=== PATIENT | female | born 1940 | race Caucasian/White ===

== ENCOUNTER 2017-09-07 13:00 | Outpatient (CLI) | payer MEDICARE ==
[2017-09-07] MEDS ORDERED: ALBUTEROL NEB 2.5 MG/3 ML INH ONE (15:00)
--- NOTE | 2017-09-07 15:27 | XRAY Report ---
EXAM: CHEST RADIOGRAPHY EXAM DATE: 09/07/2017 01:14 PM. CLINICAL HISTORY: CHRONIC COUGH. COMPARISON: None. TECHNIQUE: 2 views. FINDINGS: Lungs/Pleura: No focal opacities evident. No pleural effusion. No pneumothorax. Hyperexpanded lungs w ith flattened diaphragm, could be due to COPD versus age related. Mediastinum: Heart and mediastinal contours are unremarkable. Other: Moderate T6, T9 and T11 compression deformities, age indeterminate. IMPRESSION: 1. Hyperexpanded lungs with flattened diaphragm, could be due to COPD versus age related. 2. No acute cardiopulmonary disease seen. 3. Moderate T6, T9 and T11 compression deformities, age indeterminate. [facility] Referring Provider Line: [phone] SITE ID: [id number]
== END 2017-09-07 13:01 | disposition home or self-care (01) ==
LOC: RT 13:00
PROVIDERS: ATTEND Internal Medicine
DX: R06.09 Other forms of dyspnea (principal); R05 Cough
CPT/HCPCS: 71046; 94060

== ENCOUNTER 2021-05-01 10:50 | Outpatient (CLI) | payer MEDICARE ==
--- NOTE | 2021-05-01 11:06 | XRAY Report ---
PROCEDURE: Chest 2 View X-Ray INDICATIONS: LEFT SIDED CHEST PAIN TECHNIQUE: 2 view(s) of the chest. COMPARISON: Chest x-ray 09/07/2017 FINDINGS: Surgical changes and devices: None. Lungs and pleura: No pleural effusions or pneumothorax. Lungs are clear. Mild hyperexpansion sugge stive COPD. Mediastinum: Mediastinal contours are normal. Heart size is normal. Bones and chest wall: No suspicious bony abnormalities. Soft tissues appear unremarkable. IMPRESSION: Mild hyperexpansion. No consolidations. Reviewed by: Amy Rios MD on 05/01/2021 11:04 AM PDT Approved by: Amy Rios MD on 05/01/2021 11:04 AM PDT Station ID: [id number]
== END 2021-05-01 10:51 | disposition home or self-care (01) ==
LOC: DI.S 10:50
PROVIDERS: ATTEND Internal Medicine
DX: R07.9 Chest pain, unspecified (principal)

== ENCOUNTER 2021-05-19 13:15 | Outpatient (CLI) | payer MEDICARE ==
--- NOTE | 2021-05-19 14:06 | DEXA Report ---
PROCEDURE: Dexa Spine and/or Hip INDICATIONS: OSTEOPENIA TECHNIQUE: Dual energy x-ray absorptiometry (DXA) was performed on a [employer] System. Regions measur ed are the AP Spine, femoral neck, and if needed forearm. COMPARISON: None. FINDINGS: Lumbar Spine: Bone Mineral Density 1.256 g/cm/cm,T score 0.6, normal Left Hip: Bone Mineral Density 0.737 g/cm/cm,T score -2.1, moderate to severe osteopenia Left Femoral Neck: Bone Mineral Density 0.708 g/cm/cm, T score -2.4, severe osteopenia/borderline osteoporosis (T score greater or equal to -1.0: NORMAL) (T score from -1.1 to -2.4: OSTEOPENIA) (T score less than or equal to -2.5 to: OSTEOPOROSIS) Impression: Significant osteopenia/borderline osteoporosis within the left femoral neck and head. Patients with diagnosis of osteoporosis or osteopenia should have regular bone mineral density assess ment. For those eligible for Medicare, routine testing is allowed once every 2 years. Testing frequ ency can be increased for patients who have rapidly progressing disease or for those who are receivin g medical therapy to restore bone mass. Reviewed by: Amy Rios MD on 05/19/2021 2:04 PM PST Approved by: Amy Rios MD on 05/19/2021 2:04 PM PST Station ID: [id number]
== END 2021-05-19 13:16 | disposition home or self-care (01) ==
LOC: DI 13:15
PROVIDERS: ATTEND Internal Medicine
DX: M85.89 Other specified disorders of bone density and structure, multiple sites (principal)

== ENCOUNTER 2021-07-14 08:00 | Outpatient (CLI) | payer MEDICARE ==
--- NOTE | 2021-07-14 13:34 | XRAY Report ---
PROCEDURE: Chest 2 View X-Ray INDICATIONS: CHEST PAIN, PLEURITIC TECHNIQUE: 2 view(s) of the chest. COMPARISON: 05/01/2021 and 09/07/2017 . FINDINGS: Surgical changes and devices: None. Lungs and pleura: No pleural effusions or pneumothorax. Lungs are clear. Lungs hyperinflated chest and COPD. Mediastinum: Mediastinal contours are normal. Heart size is normal. Bones and chest wall: No suspicious bony abnormalities. Soft tissues appear unremarkable. Chronic T 8 and T10 vertebral body compression deformities are stable compared to prior exams. IMPRESSION: No acute cardiopulmonary disease process. Reviewed by: Erum Aguirre MD, PhD on 07/14/2021 1:33 PM PST Approved by: Erum Aguirre MD, PhD on 07/14/2021 1:33 PM PST Station ID: [id number]
== END 2021-07-14 23:59 | disposition home or self-care (01) ==
LOC: DI.S 08:00
PROVIDERS: ATTEND Physician Assistant
DX: R07.81 Pleurodynia (principal)

== ENCOUNTER 2021-07-14 09:37 | Outpatient (CLI) | payer MEDICARE | END 2021-07-14 09:38 | disposition short-term general hospital (02) | LOC: EMS 09:37 | DX: R07.9 Chest pain, unspecified (principal) | CPT/HCPCS: A0425; A0429 ==

== ENCOUNTER 2021-07-29 09:28 | Outpatient (CLI) | payer MEDICARE ==
--- NOTE | 2021-07-29 12:27 | CT Report ---
PROCEDURE: CT chest without contrast INDICATIONS: PULMONARY NODULE TECHNIQUE: Noncontrast 1mm axial images were acquired from the pulmonary apices to the posterior cost ophrenic angles. Axial 5 mm soft tissue kernel reconstructions were performed as well as 8 mm axial MIP and coronal and sagittal 5 mm reformations. For radiation dose reduction, the following was used : automated exposure control, adjustment of mA and/or kV according to patient size. COMPARISON: Chest x-ray 07/14/2021 FINDINGS: Image quality: Excellent. Lungs and pleura: Spiculated mass lesion in the left upper lobe measures 1.5 x 2.5 cm axial by 1.9 cm superior-inferior. Mild biapical pulmonary emphysema present. Platelike atelectasis or scarring note d in the left lower lobe. Mediastinum: Heart size is normal. No pericardial effusion. No mediastinal adenopathy by size crit eria. Thoracic aorta and central pulmonary arteries are normal in size. Esophagus is normal in bryson stefano. No hiatal hernia. Atherosclerotic vascular calcification noted in the thoracic aorta without a neurysm. Bones and chest wall: No suspicious bony lesions. No vertebral body compression fractures. No axil lizzie or supraclavicular adenopathy by size criteria. The thyroid is normal in size and there are no incidental findings. Wedge-shaped compression fracture with 20% height loss noted T10 and T12. No ret ropulsed fracture fragment. Abdomen: Visualized upper abdominal solid organs and bowel loops appear normal in the absence of con trast. Bilateral renal cysts noted. IMPRESSION: Spiculated left upper lobe mass lesion consistent with neoplasm. Lesion would be amenable to CT-guide d percutaneous biopsy. Mild biapical pulmonary emphysema. Wedge-shaped compression fractures T10 and T12 without retropulsed fracture fragment. Reviewed by: Douglas Greer MD on 07/29/2021 11:[address] [facility] Approved by: Douglas Greer MD on 07/29/2021 11:[address] [facility] Station ID: [id number]
== END 2021-07-29 09:29 | disposition home or self-care (01) ==
LOC: DI 09:28
PROVIDERS: ATTEND Nurse Practitioner Family
DX: R91.8 Other nonspecific abnormal finding of lung field (principal); J43.9 Emphysema, unspecified; M48.54XA Collapsed vertebra, not elsewhere classified, thoracic region, initial encounter for fracture

== ENCOUNTER 2021-08-15 12:53 | Outpatient (CLI) | payer MEDICARE | END 2021-08-15 12:54 | disposition home or self-care (01) | LOC: RT 12:53 | PROVIDERS: ATTEND Internal Medicine | DX: R91.8 Other nonspecific abnormal finding of lung field (principal); J43.9 Emphysema, unspecified | CPT/HCPCS: 94010 ==

== ENCOUNTER 2021-08-22 12:32 | Outpatient (CLI) | payer MEDICARE ==
[2021-08-22] MEDS ORDERED: GADOBUTROL 7.5 MMOL/7.5 ML VIAL ONE (13:23)
[2021-08-22] MEDS ORDERED: GADOBUTROL 7.5 MMOL/7.5 ML VIAL IVP ONE (16:42)
--- NOTE | 2021-08-22 17:00 | MRI Report ---
PROCEDURE: Brain W/WO INDICATIONS: LUNG MASS CONTRAST: IV CONTRAST: Gadavist ml: 6.2 TECHNIQUE: Noncontrast axial T1 spin echo, axial T2 fast spin echo, sagittal and axial FLAIR, coronal T2 fast sp in echo, axial gradient echo, axial diffusion and ADC through the brain. After the administration of contrast, axial and coronal T1 spin echo with fat saturation through the brain. COMPARISON: None. FINDINGS: Image quality: Excellent. CSF spaces: Basal cisterns are patent. No extra-axial fluid collections. Ventricles are normal in size and shape. Brain: No midline shift. No intracranial bleeds or masses. No abnormal intracranial enhancement. There is moderate cerebral volume loss for age. The brainstem appears normal. Diffusion-weighted i mages demonstrate no acute ischemic insults. No chronic ischemic insults. Normal intravascular flow voids are present. Dural sinuses demonstrate normal postcontrast enhancement. Skull and face: Calvarial marrow is normal in signal. Orbits appear normal. Sinuses: Large mucous retention cyst versus polyp noted in the right maxillary sinus. Small mucous re tention cyst noted in the left maxillary sinus. Mastoids appear clear. IMPRESSION: 1. No evidence of metastatic disease. 2. No acute intracranial disease process Reviewed by: Erum Aguirre MD, PhD on 08/22/2021 4:58 PM PST Approved by: Erum Aguirre MD, PhD on 08/22/2021 4:58 PM PST Station ID: [id number]
== END 2021-08-22 12:33 | disposition home or self-care (01) ==
LOC: DI 12:32
PROVIDERS: ATTEND Internal Medicine
DX: R91.8 Other nonspecific abnormal finding of lung field (principal)
CPT/HCPCS: 36415; 70553; 82565; A9585

== ENCOUNTER 2021-10-10 11:59 | Emergency (ER) | payer MEDICARE ==
--- OUTSIDE RECORDS SUMMARY | 2021-10-10 12:31 | EXTERNAL MEDICAL SUMMARY RPT | Continuity of Care Document ---
:1940 Author Organization [facility] Address [address] [place] [address] Phone Care Team Providers Name Role Phone PA-C Unavailable Unavailable Allergies No information. Encounters No information. Medications date description facility [id number] alendronate [facility] [place] [id number] fluticasone propionate [facility] [id number] chlorhexidine gluconate [facility] [id number] hydrochlorothiazide [facility] [place] Problems date description facility [id number] Pleuritic pain [facility] [place] [id number] Painful respiration [facility] [id number] Other chest pain [facility] [place] [id number] CHEST 2 VIEW [facility] Procedures date description facility [id number] EKG Office Complete [facility] Results No information. Vital Signs date measurement value source 20210714 weight_standard 138 lb 20210714 weight_metric 62.6 kg 20210714 temperature_standard 97.1 F 20210714 temperature_metric 36.17 C 20210714 respiration_rate 12 /min 20210714 height_standard 64 in [id number] height_metric 162.56 cm 20210714 heart_rate 80 /min 20210714 BP_systolic 150 mm[Hg] 20210714 BP_systolic 130 mm[Hg] 20210714 BP_systolic 120 mm[Hg] 20210714 BP_diastolic 98 mm[Hg] 20210714 BP_diastolic 82 mm[Hg] 20210714 BP_diastolic 72 mm[Hg] 20210714 BMI 23.77 kg/m2
[2021-10-10 12:45] LABS: BASOPHILS % (AUTO) 0.3 %; EOSINOPHILS # (AUTO) 0.1 10^3/uL (0.0-0.7); EOSINOPHILS % (AUTO) 0.5 %; HCT - HEMATOCRIT 40.3 % (37.0-47.0); HGB - HEMOGLOBIN 13.2 g/dL (12.0-16.0); LYMPHOCYTES # (AUTO) 1.1 10^3/uL (1.5-3.5); LYMPHOCYTES % (AUTO) 10.7 %; MEAN CORPUSCULAR HEMOGLOBIN 29.8 pg (27.0-31.0); MEAN CORPUSCULAR HGB CONC 32.8 g/dL (32.0-36.0); MONOCYTES # (AUTO) 0.8 10^3/uL (0.0-1.0); MONOCYTES % (AUTO) 7.9 %; NEUTROPHILS # (AUTO) 8.5 10^3/uL (1.5-6.6); NEUTROPHILS % (AUTO) 80.3 %; PLT - PLATELET COUNT 659 10^3/uL (130-450); RED BLOOD COUNT 4.43 10^6/uL (4.20-5.40); RED CELL DISTRIBUTION WIDTH 13.2 % (12.0-15.0); WHITE BLOOD COUNT 10.6 x10^3/uL (4.8-10.8)
[2021-10-10 12:59] LABS: ALBUMIN 3.6 g/dL (3.2-5.5); ALBUMIN/GLOBULIN RATIO 0.9 (1.0-2.2); BILIRUBIN,TOTAL 0.9 mg/dL (0.2-1.0); CALCIUM 9.5 mg/dL (8.5-10.3); CREATININE 0.8 mg/dL (0.4-1.0); POTASSIUM 3.7 mmol/L (3.5-5.0); TOTAL PROTEIN 7.8 g/dL (6.7-8.2)
[2021-10-10] MEDS ORDERED: SODIUM CHLORIDE 0.9% 1,000 ML IV STA ×2 (13:33)
--- NOTE | 2021-10-10 14:24 | XRAY Report ---
PROCEDURE: Chest 1 View X-Ray INDICATIONS: cough TECHNIQUE: One view of the chest was acquired. COMPARISON: Chest radiographs 07/14/2021, CT chest 07/29/2021 FINDINGS: Surgical changes and devices: None. Lungs and pleura: No pleural effusions or pneumothorax. Hyperexpanded lungs can be seen in the setti ng of COPD. There is mild haziness of the right lung base without clear definition of the right hemid iaphragm, possibly representing small effusion versus atelectasis or consolidation or superimposed st ructures. Left upper lobe mass is poorly visualized radiographically. Mediastinum: Mediastinal contours appear normal. Heart size is normal. Bones and chest wall: No suspicious bony lesions. Overlying soft tissues appear unremarkable. IMPRESSION: 1.Hazy opacity obscuring the right hemidiaphragm may be secondary to a small pleural effusion and/or atelectasis or consolidation versus superimposed structures. Consider further evaluation with PA and lateral chest radiographs or CT chest. 2.Left upper lobe spiculated nodule is poorly visualized radiographically. Reviewed by: Alvarado Giang MD on 10/10/2021 2:23 PM PDT Approved by: Alvarado Giang MD on 10/10/2021 2:23 PM PDT Station ID: [id number]
--- NOTE | 2021-10-10 14:42 | ED Physician Documentation ---
History of Present Illness - Stated complaint Stated Complaint: NAUSEA/WEAKNESS/SHAKING - Chief complaint Chief Complaint: General - History obtained from History obtained from: Patient, Family - History of Present Illness Pain level max: 0 Pain level now: 0 - Additonal information Additional information: Patient is an 81-year-old female who presents to the emergency department complaining of generalized weakness. This been ongoing for the past 1 to 2 weeks since having lymph nodes biopsied. She has lung cancer. She is supposed to start chemotherapy and radiation tomorrow. Decreased oral intake. Nothing seems to make it better or worse. No fevers. No chills. No vomiting. Review of Systems Constitutional: denies: Fever, Chills Throat: denies: Sore throat Cardiac: reports: Other (Occasionally has pain in the right lower lung.) Respiratory: denies: Dyspnea, Cough, Hemoptysis, Wheezing GI: denies: Abdominal Pain, Vomiting, Diarrhea : denies: Dysuria Skin: denies: Rash Musculoskeletal: denies: Neck pain, Back pain Neurologic: denies: Headache PD PAST MEDICAL HISTORY - Past Medical History Past Medical History: Yes Respiratory: COPD, Other Other Past Medical History: Lung Ca - Past Surgical History Past Surgical History: Yes /[employer]: Hysterectomy - Present Medications Home Medications: Ambulatory Orders Medication Instructions Recorded Confirmed Albuterol Sulf [Ventolin Hfa 2 puffs INH PRN PRN 08/09/21 08/09/21 Inhaler] Alendronate [Fosamax] 70 mg PO Q7D 08/09/21 08/09/21 Fluticasone 44 Mcg [Flovent] 1 puffs INH BID 08/09/21 08/09/21 hydroCHLOROthiazide [Hydrodiuril] 25 mg PO DAILY 08/09/21 08/09/21 oxyCODONE [Roxicodone] 5 mg PO Q6H PRN #90 tablet 08/09/21 Aspirin EC [Ecotrin] 325 mg PO DAILY #30 tablet 10/10/21 Diltiazem HCl [Cardizem LA] 120 mg PO DAILY #30 tab 10/10/21 - Allergies Allergies/Adverse Reactions: Allergies Allergy/AdvReac Type Severity Reaction Status Date / Time No Known Drug Allergies Allergy Verified 10/10/21 12:11 - Social History Does the pt smoke?: No Smoking Status: Never smoker Does the pt drink ETOH?: No Does the pt have substance abuse?: No PD ED PE NORMAL - Vitals Vital signs reviewed: Yes - General General: Alert and oriented X 3, No acute distress - HEENT HEENT: PERRL, Moist mucous membranes - Neck Neck: Supple, no meningeal sign - Cardiac Cardiac: RRR, Strong equal pulses - Respiratory Respiratory: No respiratory distress, Clear bilaterally - Abdomen Abdomen: Soft, Non tender, Non distended - Derm Derm: Warm and dry - Extremities Extremities: No edema, No calf tenderness / cord - Neuro Neuro: Alert and oriented X 3 - Psych Psych: Normal mood, Normal affect Results - Vitals Vitals: Vital Signs - 24 hr 10/10/21 10/10/21 10/10/21 12:11 14:17 16:00 Temperature 37.1 C 36.6 C 36.4 C L Heart Rate 106 H 87 92 Respiratory 18 12 17 Rate Blood Pressure 121/87 H 153/85 H 172/80 H O2 Saturation 96 98 97 10/10/21 16:38 Temperature 36.6 C Heart Rate 84 Respiratory 16 Rate Blood Pressure 138/78 H O2 Saturation 98 Oxygen O2 Source Room air - EKG (time done) 1547 Rate: Rate (enter#) (162) Rhythm: Atrial fibrillation [place]: Normal QRS: Normal Ischemia: Non specific changes (rate related) 1544 Rate: Rate (enter#) (84) Rhythm: NSR, Other (PVC) [place]: Normal Intervals: Normal VT QRS: Normal Ischemia: Non specific changes - Labs Labs: Laboratory Tests 10/10/21 10/10/21 12:37 12:37 WBC 10.6 RBC 4.43 Hgb 13.2 Hct 40.3 MCV 91.0 MCH 29.8 MCHC 32.8 RDW 13.2 Plt Count 659 H MPV 10.0 Neut # (Auto) 8.5 H Lymph # (Auto) 1.1 L [place] # (Auto) 0.8 Eos # (Auto) 0.1 Baso # (Auto) 0.0 Absolute Nucleated RBC 0.00 Nucleated RBC % 0.0 Sodium 138 Potassium 3.7 Chloride 99 L Carbon Dioxide 25 Anion Gap 14.0 H BUN 14 Creatinine 0.8 Estimated GFR (MDRD) 69 L Glucose 119 H Calcium 9.5 Total Bilirubin 0.9 AST 18 ALT 14 Alkaline Phosphatase 67 Total Protein 7.8 Albumin 3.6 Globulin 4.2 Albumin/Globulin Ratio 0.9 L Lipase 30 - Rads (name of study) Chest x-ray Radiology: Final report received, EMP read contemporaneously, See rad report PD MEDICAL DECISION MAKING - ED course Complexity details: reviewed results, re-evaluated patient, considered differential, d/w patient, d/w family ED course: 81-year-old female presents to the emergency department with feeling generally weak. Also occasionally has right lower lung pain. She does have what appears to be a small pleural effusion on chest x-ray. Likely the cause of her symptoms. She also appears to have paroxysmal atrial fibrillation and did have a few episodes of atrial fibrillation with rapid ventricular response while in the emergency department. She was given Cardizem, rate controlled and then she did convert back to sinus rhythm. She states that she has felt the palpitations several times over the past several months. No syncope. No chest pain. We will have her follow-up with her doctor this week for echocardiogram and to discuss anticoagulation given her upcoming chemotherapy and radiation. We will start her on an aspirin in the meantime as well as Cardizem. Patient is eating and drinking without difficulty here. Feels better after IV fluids. Patient and family counseled regarding signs and symptoms for which I believe and urgent re-evaluation would be necessary. Patient with good understanding of and agreement to plan and is comfortable going home at this time This document was made in part using voice recognition software. While efforts are made to proofread this document, sound alike and grammatical errors may occur. IMPRESSION: 1.Hazy opacity obscuring the right hemidiaphragm may be secondary to a small pleural effusion and/or atelectasis or consolidation versus superimposed structures. Consider further evaluation with PA and lateral chest radiographs or CT chest. 2.Left upper lobe spiculated nodule is poorly visualized radiographically. Departure - Departure Disposition: 01 Home, Self Care Clinical Impression: Dehydration, Paroxysmal atrial fibrillation, Pleural effusion Condition: Good Instructions: ED Afib, ED Dehydration, ED Effusion Pleural Follow-Up: MAGDALENO JOY MD [Provider Admit Priv/Credential] - Pal Calderón MD [Primary Care Provider] - Prescriptions: Diltiazem HCl [Cardizem LA] 120 mg PO DAILY #30 tab Aspirin EC [Ecotrin] 325 mg PO DAILY #30 tablet Comments: We will start you on Cardizem and aspirin for her atrial fibrillation. Follow- up with your doctor in 2 to 3 days to discuss if you should be on anticoagulation. Usually you would be a candidate, but given your upcoming chemotherapy and radiation, they may choose to wait. Please contact your doctor tomorrow for an appointment. Your prescriptions were sent to [facility]. Discharge Date/Time: 10/10/21 16:55
[2021-10-10] MEDS ORDERED: diltiaZEM INJ 5 MG/ML VIAL IVP STA (15:49)
[2021-10-10 16:38] VITALS: BP 138/78
== END 2021-10-10 16:55 | disposition home or self-care (01) ==
LOC: ED 11:59
DX: I48.0 Paroxysmal atrial fibrillation (principal); E86.0 Dehydration; J90 Pleural effusion, not elsewhere classified; D49.1 Neoplasm of unspecified behavior of respiratory system
CPT/HCPCS: 36415; 80053; 81001; 81003; 83690; 85025; 87086; 93005; 96361; 96374; 99283

== ENCOUNTER 2021-10-18 06:23 | Day surgery (SDC) | payer MEDICARE ==
[~2021-10-18 06:23] MED LIST: LACTATED RINGERS 1,000 ML IV ONE
[2021-10-18] MEDS ORDERED: CEFAZOLIN SODIUM IN 0.9 % NACL 2 GM/50 ML BAG IV ONE (06:39)
--- NOTE | 2021-10-18 07:07 | ANESTHESIA ---
Pre-Anesthesia VS, & Labs - Diagnosis lung cancer - Procedure port placement Vital Signs: Temp Pulse Resp BP Pulse Ox 36.9 C 87 16 145/78 H 99 10/18/21 06:39 10/18/21 06:39 10/18/21 06:39 10/18/21 06:39 10/18/21 06:39 Height: 5 ft 4 in Weight (kg): 59.1 kg Body Mass Index: 22.4 BMI Classification: Healthy weight - NPO >8 hours - Is Patient ?: No Home Medications and Allergies Albuterol Sulf [Ventolin Hfa Inhaler] 2 puffs INH PRN PRN 08/09/21 Alendronate [Fosamax] 70 mg PO Q7D 08/09/21 Fluticasone 44 Mcg [Flovent] 1 puffs INH BID 08/09/21 hydroCHLOROthiazide [Hydrodiuril] 25 mg PO DAILY 08/09/21 Allergies/Adverse Reactions: Allergies Allergy/AdvReac Type Severity Reaction Status Date / Time No Known Drug Allergies Allergy Verified 10/18/21 06:49 Anes History & Medical History - Anesthetic History Anesthesia Complications: reports: No previous complications - Medical History Cardiovascular: reports: Hypertension, Atrial fibrillation, Arrhythmia Pulmonary: reports: COPD, Other (left lung cancer) Gastrointestinal: reports: None Urinary: reports: None Musculoskeletal: reports: Osteoarthritis Endocrine/Autoimmune: reports: None Skin: reports: None Smoking Status: Never smoker History of Cancer?: Yes - Surgical History Gynecologic: reports: Hysterectomy Exam General: Alert Dental: WNL, Dentures full Upper, Partials Lower Mouth Opening: Greater than 4 Fingerbreadths Mallampati classification: II Thyromental Distance: greater than 6 cm Respiratory: Lungs clear Cardiovascular: Regular rate, Normal S1, Normal S2 Plan Anesthesia Type: MAC, Total IV Consent for Procedure(s) Verified and Reviewed: Yes Code Status: Attempt Resuscitation ASA classification: 3-Severe systemic disease Is this case an emergency?: No
[2021-10-18] MEDS ORDERED: BUPIVACAINE 0.25% PF 10 ML VIAL ONE (07:09)
[2021-10-18] MEDS ORDERED: LIDOCAINE 2%-EPI 1:100000 20 ML MDV ONE (07:09)
[2021-10-18] MEDS ORDERED: MIDAZOLAM 2 MG/2 ML VIAL ONE (07:28)
[2021-10-18] MEDS ORDERED: PROPOFOL 200 MG/20 ML VIAL IVP ONE (07:28)
[2021-10-18] MEDS ORDERED: fentaNYL 100 MCG/2 ML VIAL ONE (07:28)
[2021-10-18] MEDS ORDERED: SODIUM CHLORIDE 0.9% 100 ML BAG IV ONE (07:33)
[2021-10-18] MEDS ORDERED: LIDOCAINE 2%-EPI 1:100000 20 ML MDV SUBQ ONE (07:36)
[2021-10-18] MEDS ORDERED: BUPIVACAINE 0.25% PF 30 ML VIAL SUBQ ONE (07:36)
[2021-10-18] MEDS ORDERED: LACTATED RINGERS 1,000 ML IV ONE (08:43)
--- NOTE | 2021-10-18 08:45 | OPERATIVE REPORT ---
Operative Report - General Planned Procedure: Right Subclavian PowerPort placement Pre-Op Diagnosis: Left upper lobe lung cancer Procedure Performed: Right subclavian PowerPort placement Post Op Diagnosis: Left upper lobe lung cancer - Procedure Note Primary Surgeon: Rosalie Anesthesia Provider: Birgit Pathology: None IV Fluids (mL): 500 Estimated Blood Loss (mL): 5 Findings: Port in good position in the superior vena cava Complications: None apparent - Other Other Information/Narrative: After obtaining informed consent, the patient is brought to the operating room and placed in supine position on the operating table. Following successful induction of sedation with monitored anesthesia care and appropriate padding of all bony prominences, the left chest and neck were prepped and draped in the standard surgical fashion. A timeout was held per scope protocol. All elements of the surgical safety checklist were followed before, during, and after the procedure. Following infiltration with local anesthetic to create a field block, the right subclavian vein was accessed in the deltopectoral groove. The J-wire was gently placed into the vein. Fluoroscopy was used to confirm the position of the wire and in the subclavian vein. We anesthetized the existing healed scar in the area around it for placement of the port itself. An incision was created here and carried down through the skin and subcutaneous tissue. A pocket was created with blunt dissection. The port tubing was attached to the tunneling device and passed from the access site of the vein into the pocket. It was trimmed to an appropriate length and the port attached. The port was sewn into place in the pocket. The dilator and introducer were then passed over the J-wire that was in the subclavian vein. The J-wire and dilator were removed leaving only the introducer. The tubing was then passed through the introducer and the introducer cracked and removed per open cut examiner's directions. The port was then checked for function and flushed and shantanu easily. Additional local anesthetic was applied to the chest wall. The port pocket was closed with interrupted Vicryl sutures and Monocryl stitches were placed in both skin incision sites. All sponge, needle, and instrument counts were correct at the conclusion of the case. Chest x-ray in the postanesthesia care unit revealed the port in good position in the superior vena cava without evidence of pneumothorax.
[2021-10-18 08:57] VITALS: BP 123/66
--- NOTE | 2021-10-18 09:43 | XRAY Report ---
PROCEDURE: OR Port-A-Cath INDICATIONS: port placement TECHNIQUE: Single intraoperative fluoroscopic spot image was acquired COMPARISON: None. FINDINGS: There is a wire entering from the right projecting over the middle mediastinum. IMPRESSION: Intraoperative fluoroscopy for Mediport placement. Reviewed by: Zahira Calhoun MD on 10/18/2021 9:42 AM PDT Approved by: Zahira Calhoun MD on 10/18/2021 9:42 AM PDT Station ID: [id number]
--- NOTE | 2021-10-18 09:45 | XRAY Report ---
PROCEDURE: Post Port Placement 1V CXR INDICATIONS: RIGHT PORT PLACEMENT TECHNIQUE: One view of the chest was acquired. COMPARISON: None FINDINGS: Surgical changes and devices: Right subclavian Mediport is in position. The tip projects in over the distal SVC region. The tubing is intact. There are overlying monitoring wires. Lungs and pleura: No pleural effusions or pneumothorax. Lungs are clear. Mediastinum: Mediastinal contours appear normal. Heart size is normal. Bones and chest wall: No suspicious bony lesions. Mild scoliosis. Overlying soft tissues appear unr emarkable. IMPRESSION: 1. Adequate placement of right Mediport. 2. No pneumothorax. Reviewed by: Zahira Calhoun MD on 10/18/2021 9:43 AM PDT Approved by: Zahira Calhoun MD on 10/18/2021 9:43 AM PDT Station ID: [id number]
--- NOTE | 2021-10-18 10:45 | ANESTHESIA POST OP EVALUATION ---
Anesthesia Post Eval - Post Anesthesia Eval Vitals: Last Vital Signs Temp 37 C 10/18/21 08:43 Pulse 72 10/18/21 08:56 Resp 17 10/18/21 08:56 BP 123/66 10/18/21 08:56 Pulse Ox 97 10/18/21 08:56 CV Function Including HR & BP: Stable Pain Control: Satisfactory Nausea & Vomiting: Negative Mental Status: Baseline Respiratory Status: Airway Patent Hydration Status: Satisfactory Anesthesia Complications: None
== END 2021-10-18 06:24 | disposition home or self-care (01) ==
LOC: SDS 06:23
PROVIDERS: ATTEND Surgery
DX: C34.12 Malignant neoplasm of upper lobe, left bronchus or lung (principal); F41.9 Anxiety disorder, unspecified; J44.9 Chronic obstructive pulmonary disease, unspecified
CPT/HCPCS: 36561; C1788; J0690; J7120

== ENCOUNTER 2021-10-24 08:34 | Observation (INO) | payer MEDICARE ==
--- NOTE | 2021-10-24 08:40 | ED Physician Documentation ---
PD HPI CHEST PAIN - Stated complaint Stated Complaint: SOA, CHEST PX - History obtained from History obtained from: Patient, Family - History of Present Illness Timing - onset: How many weeks ago (The patient has had at least several weeks of pleuritic right chest pain worse with deep breathing. Some dyspnea as well over the last several weeks to few months. Diagnosed with lung cancer on the left 2 to 3 months ago. Has undergone staging with biopsies and just had PowerPort placed 6 day ago), Other (She has had ongoing pleuritic right chest pain and some left chest pain for several weeks or more. Oxycodone it made her too sleepy. Currently using Tylenol 3 which does not help the pain adequately. No NSAIDs. Here today because of increased pain.) Timing - onset during: Light activity Timing - details: Intermittant Quality: Aching, Sharp, Like prior ACS Location: Right chest (lower ribs/chest right side for weeks.) Radiation: Back. No: Jaw, Neck, Abdominal Improved by: No: Rest Worsened by: Inspiration, Movement, Position (lying left side.). No: Palpation Associated symptoms: Shortness of air. No: Nausea, Feeling faint / dizzy, Palpitations (she has not been feeling palpitations so not clear duration/amount of atrial fib she has been in.) Recently seen: Surgery (had power port placed 4 days ago. Seen in ER previously 2 weeks ago for back pain and was in intermittent atrial fib at that visit. NSR at discharge. Diltiazem 120 mg Rx given.) Review of Systems Constitutional: denies: Fever, Chills Nose: denies: Rhinorrhea / runny nose, Congestion Throat: denies: Sore throat Cardiac: reports: Chest pain / pressure. denies: Palpitations, Pedal edema, Calf pain Respiratory: reports: Dyspnea. denies: Cough, Hemoptysis, Wheezing GI: reports: Nausea. 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 - Present Medications Home Medications: Ambulatory Orders Medication Instructions Recorded Confirmed Albuterol Sulf [Ventolin Hfa 2 puffs INH Q6H PRN 08/09/21 10/24/21 Inhaler] Alendronate [Fosamax] 70 mg PO Q7D 08/09/21 10/24/21 hydroCHLOROthiazide [Hydrodiuril] 25 mg PO DAILY 08/09/21 10/24/21 Aspirin EC [Ecotrin] 325 mg PO DAILY #30 tablet 10/10/21 10/24/21 Diltiazem HCl [Cardizem LA] 120 mg PO DAILY #30 tab 10/10/21 10/24/21 ALPRAZolam [Xanax] 0.25 mg PO Q12H PRN #20 tablet 10/18/21 10/24/21 Fluticasone 110 Mcg [Flovent] 1 puffs INH BID 10/24/21 10/24/21 Lidocaine/Prilocain 2.5% Cream 1 applic TOP PRN PRN 10/24/21 10/24/21 [Emla 2.5% Cream] oxyCODONE [Roxicodone] 5 mg PO Q6H PRN 10/24/21 10/24/21 - Allergies Allergies/Adverse Reactions: Allergies Allergy/AdvReac Type Severity Reaction Status Date / Time No Known Drug Allergies Allergy Verified 10/24/21 08:45 - Social History Does the pt smoke?: No Smoking Status: Never smoker Does the pt drink ETOH?: No Does the pt have substance abuse?: No PD ED PE NORMAL - Vitals Vital signs reviewed: Yes - General General: Alert and oriented X 3, No acute distress (Does seem uncomfortable with deep breathing and movement, pain to right lateral chest area. ), Well developed/nourished - HEENT HEENT: Atraumatic - Neck Neck: Supple, no meningeal sign, No adenopathy - Cardiac Cardiac: No: RRR (irregular and fast rate 130-140s. Atrial fib. ) - Respiratory Respiratory: No respiratory distress, Clear bilaterally, Other (right upper chest wall with powerport subcutaneously without signs of infection at the skin. ) - Abdomen Abdomen: Soft, Non tender - Back Back: No CVA TTP - Derm Derm: Normal color, Warm and dry - Extremities Extremities: No deformity, No tenderness to palpate, No edema, No calf tenderness / cord - Neuro Neuro: Alert and oriented X 3, No motor deficit, Normal speech Results - Vitals Vitals: Vital Signs - 24 hr 10/24/21 10/24/21 10/24/21 08:40 08:46 09:18 Temperature 36.4 C L Heart Rate 58 L 129 H Respiratory 22 28 H Rate Blood Pressure 119/82 H 121/97 H O2 Saturation 96 10/24/21 10/24/21 09:22 09:27 Temperature Heart Rate 116 H 106 H Respiratory 30 H 25 H Rate Blood Pressure 101/75 98/81 H O2 Saturation 92 95 Oxygen O2 Source Room air - EKG (time done) 08:49 Rate: Rate (enter#) (143) Rhythm: Atrial fibrillation QRS: Normal Ischemia: Non specific changes. No: ST elevation c/w ischemia - Labs Labs: Laboratory Tests 10/24/21 10/24/21 10/24/21 08:58 08:58 08:58 WBC 13.5 H RBC 4.13 L Hgb 12.6 Hct 37.7 MCV 91.3 MCH 30.5 MCHC 33.4 RDW 14.6 Plt Count 359 MPV 10.9 H Neut # (Auto) 11.6 H Lymph # (Auto) 0.8 L [place] # (Auto) 1.0 Eos # (Auto) 0.0 Baso # (Auto) 0.0 Absolute Nucleated RBC 0.00 Nucleated RBC % 0.0 Sodium 133 L Potassium 3.3 L Chloride 94 L Carbon Dioxide 26 Anion Gap 13.0 BUN 29 H Creatinine 1.1 H Estimated GFR (MDRD) 48 L Glucose 150 H Calcium 8.9 Magnesium 2.0 Total Bilirubin 0.9 AST 15 ALT < 10 L Alkaline Phosphatase 62 B-Natriuretic Peptide 460 H Total Protein 7.1 Albumin 3.3 Globulin 3.8 Albumin/Globulin Ratio 0.9 L Lipase 28 - Rads (name of study) chest xray Radiology: Prelim report reviewed, See rad report PD MEDICAL DECISION MAKING - ED course Complexity details: re-evaluated patient (She has a slower atrial fibrillation now at 1 10-1 20 but however is having sinus pauses of 3 to 4 seconds. She was not having these prior to the diltiazem dose here. Is having lightheadedness associated with that. Still fast atrial fib. ), considered differential (Pleuritic right chest pain presume pleurisy from atelectasis, small effusion. Not tappable sized effusion. No clinical pneumonia. Lung tumors on the left without any mets on prior exams.), d/w patient, d/w interventional sale consultant (Dr. Gomez, Hospitalist. ) Departure - Departure Disposition: ED Place in Observation Clinical Impression: Atrial fibrillation with rapid ventricular response, Sinus pause, Pleuritic chest pain, Lung cancer Condition: Stable Discharge Date/Time: 10/24/21 11:40
--- OUTSIDE RECORDS SUMMARY | 2021-10-24 08:53 | EXTERNAL MEDICAL SUMMARY RPT | Continuity of Care Document ---
:1940 Author Organization [facility] Address [address] [place] [address] Phone Care Team Providers Name Role Phone OR Unavailable Unavailable Allergies No information. Encounters No information. Medications No information. Problems date description facility [id number] Unspecified essential hypertension [facility] [id number] Primary malignant neoplasm of left [facility] & upper lobe of lung [facility] [id number] Other specified disorders of bone [facility] & density and structure, unspecified site [facility] [id number] Osteopenia [facility] Prim see Care & [facility] [id number] Malignant neoplasm of upper lobe, left [facility] & bronchus or lung [facility] [id number] Malignant neoplasm of upper lobe, [facility] & bronchus or lung [facility] [id number] Hypertensive disorder [facility] P [facility]ary Care & [facility] [id number] Former smoker [facility] Care & [facility] [id number] Essential (primary) hypertension [facility] [phone] Disorder of bone and cartilage, [facility] & unspecified [facility] [id number] Chronic obstructive pulmonary disease, [facility] & unspecified [facility] [id number] Chronic obstructive lung disease [facility] [id number] Chronic airway obstruction, not [facility] & elsewhere classified [facility] Results No information.
[2021-10-24] MEDS ORDERED: SODIUM CHLORIDE 0.9% 1,000 ML IV STA ×2 (09:04→10:48)
[2021-10-24] MEDS ORDERED: HYDROmorphone 1 MG/ML CARPUJECT IVP STA (09:04)
[2021-10-24] MEDS ORDERED: ONDANSETRON 4 MG/2 ML VIAL IVP STA (09:04)
[2021-10-24] MEDS ORDERED: KETOROLAC 15 MG/ML VIAL IVP STA (09:04)
[2021-10-24] MEDS ORDERED: diltiaZEM INJ 5 MG/ML VIAL IVP STA (09:05)
[2021-10-24 09:11] LABS: BASOPHILS % (AUTO) 0.1 %; EOSINOPHILS % (AUTO) 0.3 %; HCT - HEMATOCRIT 37.7 % (37.0-47.0); HGB - HEMOGLOBIN 12.6 g/dL (12.0-16.0); LYMPHOCYTES # (AUTO) 0.8 10^3/uL (1.5-3.5); LYMPHOCYTES % (AUTO) 5.5 %; MEAN CORPUSCULAR HEMOGLOBIN 30.5 pg (27.0-31.0); MEAN CORPUSCULAR HGB CONC 33.4 g/dL (32.0-36.0); MEAN CORPUSCULAR VOLUME 91.3 fL (81.0-99.0); MEAN PLATELET VOLUME 10.9 fL (7.9-10.8); MONOCYTES % (AUTO) 7.7 %; NEUTROPHILS # (AUTO) 11.6 10^3/uL (1.5-6.6); NEUTROPHILS % (AUTO) 86.2 %; PLT - PLATELET COUNT 359 10^3/uL (130-450); RED BLOOD COUNT 4.13 10^6/uL (4.20-5.40); RED CELL DISTRIBUTION WIDTH 14.6 % (12.0-15.0); WHITE BLOOD COUNT 13.5 x10^3/uL (4.8-10.8)
[2021-10-24 09:21] LABS: ALBUMIN 3.3 g/dL (3.2-5.5); ALBUMIN/GLOBULIN RATIO 0.9 (1.0-2.2); ALKALINE PHOSPHATASE 62 IU/L (42-121); ALT ALANINE AMINOTRANSFERASE < 10 IU/L (10-60); AST ASPARTATE AMINOTRANSFERASE 15 IU/L (10-42); BILIRUBIN,TOTAL 0.9 mg/dL (0.2-1.0); BUN - BLOOD UREA NITROGEN 29 mg/dL (6-20); CALCIUM 8.9 mg/dL (8.5-10.3); CARBON DIOXIDE - CO2 26 mmol/L (21-32); CHLORIDE 94 mmol/L (101-111); CREATININE 1.1 mg/dL (0.4-1.0); GFR - MDRD 48 (>89); GLUCOSE 150 mg/dL (70-100); LIPASE 28 U/L (22-51); POTASSIUM 3.3 mmol/L (3.5-5.0); SODIUM 133 mmol/L (135-145); TOTAL PROTEIN 7.1 g/dL (6.7-8.2)
--- NOTE | 2021-10-24 09:33 | XRAY Report ---
PROCEDURE: Chest 1 View X-Ray INDICATIONS: Chest pain TECHNIQUE: One view of the chest was acquired. COMPARISON: None. FINDINGS: Surgical changes and devices: Right chest wall central venous port catheter is in appropriate positio n. Lungs and pleura: Blunting of the left costophrenic angle with some ill-defined airspace opacity in t he left lung base overlying the left hemidiaphragm. The right lung and pleural space are clear. No pn eumothorax. Mediastinum: Mediastinal contours appear normal. Heart size is normal. Bones and chest wall: No suspicious bony lesions. Overlying soft tissues appear unremarkable. IMPRESSION: Left costophrenic angle blunting and mild left basilar airspace opacity is suspicious for infection w ith possible small left pleural effusion. Reviewed by: Connor Luevano MD on 10/24/2021 9:31 AM PDT Approved by: Connor Luevano MD on 10/24/2021 9:31 AM PDT Station ID: [id number]
[2021-10-24] MEDS ORDERED: POTASSIUM CHLOR 10 MEQ/100 ML 10 MEQ/100 ML BAG IV STA (09:41)
[2021-10-24] MEDS ORDERED: CALCIUM GLUC 1,000MG/50ML-NACL 1,000 MG/50 ML BAG IV STA ×2 (09:52→10:37)
[2021-10-24] MEDS ORDERED: POTASSIUM CHLORIDE 20 MEQ TABLET PO STA (09:55)
[2021-10-24] MEDS ORDERED: SODIUM CHLORIDE FLUSH 0.9% 10 ML SYRINGE IVP PRN (10:33)
[2021-10-24] MEDS ORDERED: ONDANSETRON ODT 4 MG TABLET TL PRN (10:33)
[2021-10-24] MEDS ORDERED: PROCHLORPERAZINE 10 MG/2 ML VIAL IVP PRN (10:33)
[2021-10-24] MEDS ORDERED: ONDANSETRON 4 MG/2 ML VIAL IVP PRN (10:33)
--- NOTE | 2021-10-24 10:46 | HISTORY & PHYSICAL EXAMINATION ---
Chief Complaint - Chief Complaint Chief Complaint: pleuritic chest pain History of Present Illness - Admitted From Admitted From:: home - History Obtained From Records Reviewed: [facility] History obtained from: [facility] oncology notes, ED note, ED provider, patient - History of Present Illness HPI Comment/Other: This is a 81-year-old female with current left upper lobe lung cancer presenting today with pleuritic chest pain. Her lung cancer was diagnosed in Aug after she presented to the ED in July with chest pain and left shoulder pain. No rosendo involvement or mets were found per oncologist Alvarado Suarez MD. She had a port placed in right subclavian on 10/18/21 for chemotherapy. She is was hesitant to start chemotherapy and plans to pursue treatment with immunomodulators. For this ongoing pain, she has a prescription for acetominophen-codeine which she will take occasionally and one for oxycodone which she avoids because she "does n't want to get hooked". Patient was recently seen in the ED on 10/10/21 for similar pleuritic chest pain and was diagnosed with paroxysmal afib at this time. She was started on diltiazem 120 mg daily and was referred to cardiology. She has not yet gone to cardiology and was found to be in afib with RVR in ED today despite reportedly taking her home dose of diltiazem this AM. She was given diltiazem IVP in the ED for rate control which caused her to have 3-4 second sinus pauses and to feel lightheaded. 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 She has COPD for which she takes Flovent 44mg BID and albuterol PRN and is not on home oxygen. She has two daughters who live next door here on [facility] and has been a since 2013 after losing her to lung cancer. She moved to [facility] to live c loser to her daughters in 2017. 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 Per oncologist, plan is to refer to ENT for biopsy after lung cancer is treated. 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 She lost her to lung CA and has two daughters. 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 She is independent with all ADLs. - Substance History Abuse: Recurrent use of substance despite neg consequences: Alcohol (25 years sober for alcohol abuse) Tobacco Details: Cigarettes (50 year smoking history, quit ~15 years ago) Meds/Allgy - Home Medications Home Medications: Ambulatory Orders Medication Instructions Recorded Confirmed Albuterol Sulf [Ventolin Hfa 2 puffs INH Q6H PRN 08/09/21 10/24/21 Inhaler] Alendronate [Fosamax] 70 mg PO Q7D 08/09/21 10/24/21 hydroCHLOROthiazide [Hydrodiuril] 25 mg PO DAILY 08/09/21 10/24/21 Aspirin EC [Ecotrin] 325 mg PO DAILY #30 tablet 10/10/21 10/24/21 Diltiazem HCl [Cardizem LA] 120 mg PO DAILY #30 tab 10/10/21 10/24/21 ALPRAZolam [Xanax] 0.25 mg PO Q12H PRN #20 tablet 10/18/21 10/24/21 Fluticasone 110 Mcg [Flovent] 1 puffs INH BID 10/24/21 10/24/21 Lidocaine/Prilocain 2.5% Cream 1 applic TOP PRN PRN 10/24/21 10/24/21 [Emla 2.5% Cream] oxyCODONE [Roxicodone] 5 mg PO Q6H PRN 10/24/21 10/24/21 - Allergies Allergies/Adverse Reactions: Allergies Allergy/AdvReac Type Severity Reaction Status Date / Time No Known Drug Allergies Allergy Verified 10/24/21 08:45 Review of Systems - Cardiovascular Cariovascular: reports: Chest pain (positional, sometimes radiates to back or shoulder) - Respiratory Respiratory: reports: Pleuritic pain. denies: Cough, Sputum production, Hemoptysis - Gastrointestinal Gastrointestinal: reports: Constipation (reports chronic constipation, has hard BM every 2-3 days, last BM yesterday, takes milk of magnesia as needed). denies: Abdominal pain, Abdominal distention - Genitourinary Genitourinary: reports: Frequency (s/t attempting to hydrate). denies: Dysuria, Urgency - All Other Systems All Other Systems: reports: Reviewed and negative Prior Level of Functionality: Independent with all ADLs and does not use any durable medical equipment. Exam - Vital Signs Reviewed Vital Signs: Yes Vital Signs: Vital Signs x48h Temp Pulse Resp BP Pulse Ox 10/24/21 09:27 106 H 25 H 98/81 H 95 10/24/21 09:22 116 H 30 H 101/75 92 10/24/21 09:18 129 H 28 H 121/97 H 10/24/21 08:46 36.4 C L 10/24/21 08:40 58 L 22 119/82 H 96 - Physical Exam General Appearance: positive: No acute distress (Alert and oriented elderly white female, sitting in hospital bed) Eyes Bilateral: positive: Normal inspection, PERRL, EOMI Respiratory: positive: Chest non-tender, No respiratory distress, Breath sounds nml. negative: Wheezes, Rales, Rhonchi Cardiovascular: positive: Irregularly irregular. negative: Tachycardia, Bradycardia Peripheral Pulses: positive: 2+ Abdomen: positive: Non-tender, Nml bowel sounds, No distention. negative: Tenderness Skin: positive: No rash, Pallor Extremities: positive: Full ROM Conclusion/Plan - Problem List (1) Sinus pause Conclusion/Plan: Patient was in afib with RVR in ED despite taking home diltiazem in AM. She was given diltiazem IV push in ED and subsequently had 3-4 second sinus pauses and reported lightheadedness in ED. Patient reported feeling less lightheaded once arriving to floor. Will monitor with 24 hour telemetry and have patient follow up with cardiology for possible inplantation of pacemaker device. (2) Paroxysmal atrial fibrillation Conclusion/Plan: Patient presented in afib with RVR in ED today and given diltiazem IV push which lead to 3-4 second sinus pauses and lightheadedness. Will observe patient on telemetry as diltiazem dose wears off and have her follow up with cardiology for echocardiography. (3) Dehydration Conclusion/Plan: ANNY secondary to dehydration evident on labs (GFR 48, BUN 29, Creatinine 1.1). Will plan to hydrate with IV fluids and repeat labs in AM. (4) Pleural effusion Conclusion/Plan: Left pleural effusion evident on CXR likely secondary to left upper lobe lung cancer. Will monitor vitals and symptoms for any sign of infectious etiology and have patient follow up with oncologist. (5) Pleuritic chest pain Conclusion/Plan: Patient's reason for coming in was for pain control of this current and reoccurring chest pain secondary to her lung tumor abutting the pleura. She is hesitant to take oxycodone because she "doesn't want to get hooked." She reported decreased pain with hydrocodone-acetominophen, will continue to offer it PRN. (6) Cancer of upper lobe of left lung Conclusion/Plan: Diagnosed in Aug 2021, likely cause of chest pain d/t tumor abutting the pleura. Had port placed on 10/18 for upcoming immunomodulator treatment. Has appointment tomorrow to get port looked at and is anxious about time of appointment and how she will get to it. - Lab Results Fish Bones: 10/24/21 08:58 10/24/21 08:58 Core Measures - Anticipated LOS I expect patient to be DC'd or transferred within 96 hours.: Yes - Issues Hospital Issues and Management Plan: Telemetry monitoring for sinus pauses and afib with RVR Hydration for ANNY Pain control for chest pain secondary to left upper lobe lung cancer - DVT/VTE - Prophylaxis VTE/DVT Device ordered at admit?: No VTE/DVT Prophylaxis med ordered at admit?: Yes
--- NOTE | 2021-10-24 11:13 | PHARMACY PROGRESS NOTE ---
- Best Possible Medication History Admit Date and Time: 10/24/21 1055 Processed by: Pharmacy Medication History completed: Yes Secondary Source(s): Physician records, Insurance records, Previous admit records Med list updated using insurance records and recent visits to the ED and SDS As the person ultimately responsible for medication therapy, providers are able to order a medication from an existing home medication list in [facility] via the "Reconcile Routine" prior to Confirmation of that medication by customer support manager. Such practice is discouraged except when the physician, in their clinical judgment, deems that a medical need exists for a medication without regard to previous use.
[2021-10-24] MEDS: ENOXAPARIN 40 MG/0.4 ML SYRINGE SUBQ SCH (12:33)
[2021-10-24] MEDS: SODIUM CHLORIDE 0.9% 1,000 ML IV SCH (12:35)
[2021-10-24] MEDS: HYDROcod/ACETAM 5/325 MG TABLET PO PRN ×2 (14:52→20:27)
[2021-10-24] MEDS: SODIUM CHLORIDE FLUSH 0.9% 10 ML SYRINGE IVP SCH (16:51)
[2021-10-24] MEDS ORDERED: MAGNESIUM HYDROXIDE 2,400 MG/30 ML UDC PO PRN (19:40)
[2021-10-25] MEDS: SODIUM CHLORIDE FLUSH 0.9% 10 ML SYRINGE IVP SCH ×2 (00:22→08:16)
[2021-10-25] MEDS: HYDROcod/ACETAM 5/325 MG TABLET PO PRN ×4 (00:22→12:54)
[2021-10-25] MEDS: SODIUM CHLORIDE 0.9% 1,000 ML IV SCH (00:23)
[2021-10-25 05:43] LABS: CALCIUM 8.3 mg/dL (8.5-10.3); CREATININE 0.7 mg/dL (0.4-1.0); POTASSIUM 3.5 mmol/L (3.5-5.0)
[2021-10-25] MEDS: ENOXAPARIN 40 MG/0.4 ML SYRINGE SUBQ SCH (08:16)
[2021-10-25] MEDS ORDERED: DOCUSATE SODIUM 100 MG CAPSULE PO SCH (09:00)
--- NOTE | 2021-10-25 09:59 | Discharge Plan ---
Discharge Plan Problem Reviewed?: Yes Disposition: Home, Self Care Condition: Fair Prescriptions: HYDROcod/ACETAM 5/325 [Girdwood 5/325] 1 tab PO Q4HR PRN #30 tablet PRN Reason: Pain 5 to 7 Apixaban [Eliquis] 2.5 mg PO BID #60 tablet guaiFENesin [Guaifenesin ER] 600 mg PO BID #100 tab Ibuprofen 400 mg PO TID PRN #100 tab PRN Reason: Pain Cholecalciferol (Vitamin D3) [Vitamin D3] 1,250 mcg PO DAILY #100 cap Diet: Regular Activity Restrictions: Activity as Tolerated Shower Restrictions: No Driving Restrictions: Yes (no driving) Instruction Topics: Apixaban oral tablets, Atrial Fibrillation Dc, Stroke Prevent Live W Atrial Fib, Bradycardia Health Concerns: You have a small lung tumor that is sitting on top of your lung and pressing against the lining of your lung. It is giving you pleurisy and it is quite painful. You came to the emergency room because of the pleurisy and inability to get control of the pain. While you were in the emergency room we found you to have an irregular heartbeat called atrial fibrillation. As we age, sometimes the electrical battery and wiring that we are born with breaks down and gives you arrhythmias and irregular heart rate. You already knew you had it from the last time you are here. But now there is a complication with the atrial fibrillation goes too fast, and then goes too slow and you will have anywhere from 2 to 6 seconds of no heartbeat. This makes you lightheaded and dizzy. We placed you in observation and confirmed that it is definitely a problem. It is not related to the heart pills because those were stopped over 24 hours ago and you are still having those problems. Usually 1 of those pills will last only up to 6 hours. You are now stable enough to go home. There are some issues that you will still need to address. Today, at discharge, you will be seeing Dr. Suarez for your infusion for your lung cancer. Plan of Treatment: 1. Because you have heart rate that goes to slow and alternates with a heart rate goes too fast, we are stuck in the problem of trying to slow down your heart rate when it is too fast but then it will slow down your heart rate when it is too low. It can sometimes cause you to be lightheaded and dizzy or pass out. So you will still need to go home on Cardizem to slow down your heart rate a bit.The supervisor slitting and shipping also recommends that you go home on a blood thinner because the atrial fibrillation will increase your risk of stroke. Up until now you have only been on aspirin but I do not think that is going to be strong enough as a blood thinner. I will be sending a blood thinner to the pharmacy for you to start. It is called Katia I spoke to [facility] cardiology on-call. Dr. Zhang Bravo is able to see you next Saturday at his clinic in [place] to see about putting in a pace maker. he will discuss the pros and cons. His number is [phone]. 2. Part of your pain management will be to take 2 ibuprofen with one of your Girdwood. You can take 2 ibuprofen and 1 Girdwood 3 times a day for your pain. You cannot take ibuprofen and alendronate and aspirin. All of these medications can cause ulcers in your esophagus or stomach. Of the 3 of these I would prefer you take the ibuprofen for pain and stick to that. As such I want you to stop your alendronate and aspirin. 3. Because the Girdwood can cause constipation, and the ibuprofen can cause ulcers, I want you to start taking milk of magnesia at night, and Colace (an [id number] stool softener) once a day. If you start to have 2 loose of stools you can stop 1 of those medicines. For your stomach I would like you to take [id number] Prilosec once a day. 4. The new medicine of Cardizem that we are using to slow down your heart rate is also a blood pressure pill. You are taking hydrochlorothiazide to lower your blood pressure. You do not need to take both pills. So I am asking you to stop the hydrochlorothiazide. 5. Coughing is getting better. But it still a problem for you. It is hard for you to get the phlegm up. I would suggest you take guaifenesin tablets and the brand name is Mucinex and take a 600 mg tablet twice a day Care Goals: Overall care goal is to try and get through this temporary phase. You have gone through so much. You had a completely normal lifestyle for an 81-year-old and were quite content and now all of this is happening to you once. We can only imagine how frustrating and sad this is for you and how physically terrible you feel. Currently your goal is to get to your first infusion for your lung cancer. You also need to be evaluated for a pacemaker and decide if you want a little bit of a boost of heart rate but at the same time control it with pills. Assessment: Patient stated that she was understanding what I was telling her but just wanted to make sure I wrote it down. This was all discussed with her daughter last night. She, Dr. Suarez, and the patient will sit down and discuss all of this. She is to see Dr. Suarez today at 1 PM No Smoking: If you smoke, Please STOP! Call for help. Follow-up with: Cheryl Delgado ARNP [Primary Care Provider] -
[2021-10-25 11:23] VITALS: BP 133/66
--- NOTE | 2021-10-25 12:18 | DISCHARGE SUMMARY ---
Discharge Summary Admit Date: 10/24/21 Discharge Date: 10/25/21 Discharging Provider: Janis Gomez MD Primary Care Provider: Cheryl LIMA Code Status: Attempt Resuscitation Condition at Discharge: Fair Discharge Disposition: 01 Home, Self Care - DIAGNOSES Discharge Diagnoses with Status of Each Condition: 1. Tachybrady syndrome 2. Sinus pauses to 6 seconds 3. Chronic atrial fibrillation 4. Pleuritic chest pain due to lung cancer 5. Lung cancer, left lung 6. Hypertension 7. Osteoporosis 8. Dehydration, present on admission and resolved - HPI History of Present Illness: This is a 81-year-old female with current left upper lobe lung cancer presenting today with pleuritic chest pain. Her lung cancer was diagnosed in Aug after she presented to the ED in July with chest pain and left shoulder pain. No rosendo involvement or mets were found per oncologist Alvarado Suarez MD. She had a port placed in right subclavian on 10/18/21 for chemotherapy. She is was hesitant to start chemotherapy and plans to pursue treatment with immunomodulators. For this ongoing pain, she has a prescription for acetominophen-codeine which she will take occasionally and one for oxycodone which she avoids because she "doesn't want to get hooked". Patient was recently seen in the ED on 10/10/21 for similar pleuritic chest pain and was diagnosed with paroxysmal afib at this time. She was started on diltiazem 120 mg daily and was referred to cardiology. She has not yet gone to cardiology and was found to be in afib with RVR in ED today despite reportedly taking her home dose of diltiazem this AM. She was given diltiazem IVP in the ED for rate control which caused her to have 3-4 second sinus pauses and to feel lightheaded. 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 She has COPD for which she takes Flovent 44mg BID and albuterol PRN and is not on home oxygen. She has two daughters who live next door here on [facility] and has been a since 2013 after losing her to lung cancer. She moved to [facility] to live closer to her daughters in 2017. 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 Per oncologist, plan is to refer to ENT for biopsy after lung cancer is treated. - CONSULTS | PROCEDURES Procedures: Chest x-ray with left costophrenic angle blunting and mild left basilar airspace opacity suspicious for pleural effusion. The right lung and pleural space are clear. This shows resolution of the October 10 right pleural effusion. - HOSPITAL COURSE Hospital Course: The patient made it very clear that what she was here for was pleuritic chest pain. She was unhappy with the outpatient management and felt that the oxycodone was too strong and sedated her, and that the Tylenol with codeine did nothing. While she was here she was tolerating [employer] [place] well enough to knock down the pain to a 4 out of 10. When she came in she was a 10 out of 10. I have attempted to reset her expectations of pain management and a tumor that is abutting pleura was the cause of her pain. I told her that we cannot aim for a goal of no pain. The most we can except is tolerable pain below 5. Otherwise if we aim for complete pain relief, I think she would be too sedated with the escalating doses of opiates. At discharge she is sent home on [employer]. I have also asked her to take 2 ibuprofen with this since we did give her Toradol while here. Overall she is to take 1 [place] [employer] and 2 ibuprofen 3 times a day. To stop alendronate to avoid interaction causing gastritis or esophagitis. Switch to just taking calcium and vitamin D. To avoid constipation have asked her to do Colace during the day, and milk of magnesia at night as needed. In addition to the pleuritic chest pain she has a deep cough where she feels like she cannot bring up phlegm. I recommended [id number]-[id number] guaifenesin extended release 600 mg p.o. twice daily. What we admitted her for was tachybradycardia syndrome that was manifested in the ER. She has been sent home on Cardizem CD from her previous encounter where she was identified as having atrial fibrillation. With that intervention she was not sent home on anticoagulation. Our thought process was that the Cardizem given to her in the emergency room for her rapid ventricular response induced the bradycardia to 30 beats a minute with transient hypotension and sinus pauses. However the patient did not have any rate lowering drugs for over 24 hours. With that, she continued to have 2 to 3-second pauses and at 1 point had a 6-second pause. She is symptomatic with dizziness, lightheadedness with this and blood pressure will drop from 118 systolic to 92 systolic. I did speak to [facility] cardiology on-call. Dr. Zhang Bravo spoke to me. He states that she will most likely need a pacemaker but it is not urgent. She did not need to be transferred. He would like to see her in the office October 30. He also wanted her started on anticoagulation for stroke risk. I did speak to Dr. Suarez as well (who is her oncologist through the [facility]). I updated him on her course. Explained that I do not think that her infusion today should be delayed. He stated that that at this this is more a palliative treatment for her. She is already declined surgical resection, radiation/chemotherapy. He may be offering her palliative radiation to see if that will help her chest wall pain as well. He has spoken to both the patient and the patient's daughter explaining that this is a palliative maneuver. I have asked him to possibly start advance care planning conversations with the family. When she was discharged from her last visit, she had the added Cardizem in addition to her usual hydrochlorothiazide. When she presented this time, her blood pressure was on the low side here. As such, I am stopping her hydrochlorothiazide, continuing her on the Cardizem since it will act as both rate lowering and blood pressure lowering. She is discharged in stable condition. She appears to be a fretful, slightly weak elderly woman who is still making her own decisions. If overwhelmed she will become slightly tearful and confused. Daughter is very supportive. Temperature is 36.6. Heart rate 87. Blood pressure 133/66. Respirations 19. 93% on room air. She has an occasional bronchitic cough that resolves on its own with no phlegm production. Neck has shotty adenopathy. She is not in any respiratory distress. Occasional rhonchi that clear with cough. No use of accessory muscles. Able to complete full sentences. An irregular rate and rhythm. Abdomen is soft, nontender, normal bowel sounds. Extremities are warm without any edema. She is able to get up out of bed with standby assist to go to the bathroom on her own and then get back in bed. - ALLERGIES Allergies/Adverse Reactions: Allergies Allergy/AdvReac Type Severity Reaction Status Date / Time No Known Drug Allergies Allergy Verified 10/24/21 08:45 - MEDICATIONS Home Medications: Ambulatory Orders Medication Instructions Recorded Confirmed Albuterol Sulf [Ventolin Hfa 2 puffs INH Q6H PRN 08/09/21 10/24/21 Inhaler] Diltiazem HCl [Cardizem LA] 120 mg PO DAILY #30 tab 10/10/21 10/24/21 ALPRAZolam [Xanax] 0.25 mg PO Q12H PRN #20 tablet 10/18/21 10/24/21 Fluticasone 110 Mcg [Flovent] 1 puffs INH BID 10/24/21 10/24/21 Lidocaine/Prilocain 2.5% Cream 1 applic TOP PRN PRN 10/24/21 10/24/21 [Emla 2.5% Cream] Apixaban [Eliquis] 2.5 mg PO BID #60 tablet 10/25/21 Cholecalciferol (Vitamin D3) 1,250 mcg PO DAILY #100 cap 10/25/21 [Vitamin D3] Docusate Sodium 100Mg Capsule 100 mg PO DAILY 10/25/21 [Colace 100Mg Capsule] HYDROcod/ACETAM 5/325 [[place] 5/325] 1 tab PO Q4HR PRN #30 tablet 10/25/21 Ibuprofen 400 mg PO TID PRN #100 tab 10/25/21 Magnesium Hydroxide [Milk of 2,400 mg PO QPM PRN 10/25/21 Magnesia] guaiFENesin [Guaifenesin ER] 600 mg PO BID #100 tab 10/25/21 - LABS Result Diagrams: 10/24/21 08:58 10/25/21 05:23
== END 2021-10-25 12:56 | disposition home or self-care (01) ==
LOC: ED 08:34 → MS2 10:55
PROVIDERS: ADMIT Specialist; ATTEND Specialist
DX: I49.5 Sick sinus syndrome (principal); N17.9 Acute kidney failure, unspecified; C34.12 Malignant neoplasm of upper lobe, left bronchus or lung; I48.0 Paroxysmal atrial fibrillation; I48.20 Chronic atrial fibrillation, unspecified; E44.0 Moderate protein-calorie malnutrition; E86.0 Dehydration; K59.09 Other constipation; I10 Essential (primary) hypertension; J44.9 Chronic obstructive pulmonary disease, unspecified; F32.A Depression, unspecified; F41.9 Anxiety disorder, unspecified; M19.90 Unspecified osteoarthritis, unspecified site; M81.0 Age-related osteoporosis without current pathological fracture; R35.0 Frequency of micturition; J90 Pleural effusion, not elsewhere classified; Z20.822 Contact with and (suspected) exposure to COVID-19; Z68.21 Body mass index [BMI] 21.0-21.9, adult; Z79.01 Long term (current) use of anticoagulants; Z79.82 Long term (current) use of aspirin; Z79.899 Other long term (current) drug therapy; Z82.3 Family history of stroke; Z82.49 Family history of ischemic heart disease and other diseases of the circulatory system; Z87.891 Personal history of nicotine dependence; Z90.710 Acquired absence of both cervix and uterus
CPT/HCPCS: 36415; 71045; 80048; 80053; 83690; 83735; 83880; 84484; 85025; 87635; 93005; 96365; 96372; 96375; 99284; 99285; A9270; G0378; J1170; J1650

== ENCOUNTER 2021-10-26 12:03 | Outpatient (CLI) | payer MEDICARE | END 2021-10-26 12:04 | disposition critical access hospital (66) | LOC: EMS 12:03 | DX: R00.2 Palpitations (principal); R55 Syncope and collapse | CPT/HCPCS: A0425; A0427 ==

== ENCOUNTER 2021-10-26 12:40 | Emergency (ER) | payer MEDICARE ==
--- NOTE | 2021-10-26 12:52 | ED Physician Documentation ---
History of Present Illness - Stated complaint Stated Complaint: PALPITATIONS - History obtained from History obtained from: Patient - History of Present Illness Timing: How many days ago (several days) Pain level max: 0 Pain level now: 0 - Additonal information Additional information: 81-year-old female, has current left upper lobe lung cancer. She has atrial fibrillation. Was recently admitted for A. fib RVR complicated by sinus pauses of 5 to 6 seconds. She was taken off all of her heart rate medications, the sinus pauses continued. The hospitalist did contact [facility] cardiology who recommended outpatient follow-up. The patient was sent home on 120 mg daily of diltiazem. She states that today she has had 3-4 episodes of near syncope. No chest pain. Has had palpitations. Nothing seems to make it better or worse. EMS reports 2 pauses of 5 to 6 seconds in the ambulance. Review of Systems Constitutional: denies: Fever Nose: denies: Rhinorrhea / runny nose, Congestion Throat: denies: Dental pain / toothache, Sore throat Cardiac: reports: Palpitations. denies: Chest pain / pressure Respiratory: denies: Cough GI: denies: Nausea, Vomiting, Diarrhea : denies: Dysuria Skin: denies: Rash Musculoskeletal: denies: Neck pain, Back pain Neurologic: reports: Near syncope. denies: Headache PD PAST MEDICAL HISTORY - Past Medical History Cardiovascular: Hypertension, Atrial fibrillation, Arrhythmia Respiratory: COPD, Other (left upper lobe lung cancer) Endocrine/Autoimmune: None GI: None : None HEENT: Other Psych: Depression, Anxiety Musculoskeletal: Osteoarthritis, Osteoporosis Derm: None - Past Surgical History Past Surgical History: Yes /[employer]: Hysterectomy - Present Medications Home Medications: Ambulatory Orders Medication Instructions Recorded Confirmed Albuterol Sulf [Ventolin Hfa 2 puffs INH Q6H PRN 08/09/21 10/25/21 Inhaler] Diltiazem HCl [Cardizem LA] 120 mg PO DAILY #30 tab 10/10/21 10/25/21 ALPRAZolam [Xanax] 0.25 mg PO Q12H PRN #20 tablet 10/18/21 10/25/21 Fluticasone 110 Mcg [Flovent] 1 puffs INH BID 10/24/21 10/25/21 Lidocaine/Prilocain 2.5% Cream 1 applic TOP PRN PRN 10/24/21 10/25/21 [Emla 2.5% Cream] Apixaban [Eliquis] 2.5 mg PO BID #60 tablet 10/25/21 10/25/21 Cholecalciferol (Vitamin D3) 1,250 mcg PO DAILY #100 cap 10/25/21 10/25/21 [Vitamin D3] Docusate Sodium 100Mg Capsule 100 mg PO DAILY 10/25/21 10/25/21 [Colace 100Mg Capsule] HYDROcod/ACETAM 5/325 [[place] 5/325] 1 tab PO Q4HR PRN #30 tablet 10/25/21 Ibuprofen 400 mg PO TID PRN #100 tab 10/25/21 10/25/21 Magnesium Hydroxide [Milk of 2,400 mg PO QPM PRN 10/25/21 10/25/21 Magnesia] guaiFENesin [Guaifenesin ER] 600 mg PO BID #100 tab 10/25/21 10/25/21 - Allergies Allergies/Adverse Reactions: Allergies Allergy/AdvReac Type Severity Reaction Status Date / Time No Known Drug Allergies Allergy Verified 10/26/21 12:51 - Social History Does the pt smoke?: No Smoking Status: Never smoker Does the pt drink ETOH?: No Does the pt have substance abuse?: No PD ED PE NORMAL - Vitals Vital signs reviewed: Yes - General General: Alert and oriented X 3, No acute distress - HEENT HEENT: PERRL, Moist mucous membranes - Neck Neck: Supple, no meningeal sign - Cardiac Cardiac: Other (irregular, tachycardic) - Respiratory Respiratory: No respiratory distress, Clear bilaterally, Other (port in R upper chest wall, no signs of infection.) - Abdomen Abdomen: Soft, Non tender, Non distended - Derm Derm: Warm and dry - Extremities Extremities: No edema - Neuro Neuro: Alert and oriented X 3 - Psych Psych: Normal mood, Normal affect Results - Vitals Vitals: Vital Signs - 24 hr 10/26/21 10/26/21 10/26/21 12:51 13:12 13:38 Temperature 36.5 C Heart Rate 120 H 127 H 101 H Respiratory 20 26 H 19 Rate Blood Pressure 124/69 139/100 H 140/72 H O2 Saturation 98 95 95 Oxygen O2 Source Room air - EKG (time done) 1249 Rate: Rate (enter#) (110) Rhythm: Atrial fibrillation Leivasy: Normal Intervals: Normal ME QRS: Normal Ischemia: Normal ST segments - Labs Labs: Laboratory Tests 10/26/21 10/26/21 10/26/21 13:11 13:11 13:11 WBC 9.1 RBC 3.46 L Hgb 10.4 L Hct 32.3 L MCV 93.4 MCH 30.1 MCHC 32.2 RDW 14.6 Plt Count 354 MPV 10.8 Neut # (Auto) 7.2 H Lymph # (Auto) 1.0 L [place] # (Auto) 0.8 Eos # (Auto) 0.1 Baso # (Auto) 0.0 Absolute Nucleated RBC 0.00 Nucleated RBC % 0.0 Sodium 136 Potassium 3.4 L Chloride 98 L Carbon Dioxide 24 Anion Gap 14.0 H BUN 17 Creatinine 0.7 Estimated GFR (MDRD) 80 L Glucose 104 H Calcium 8.6 Total Bilirubin 0.9 AST 13 ALT 12 Alkaline Phosphatase 60 Troponin I High Sens 10.8 Total Protein 6.4 L Albumin 2.9 L Globulin 3.5 Albumin/Globulin Ratio 0.8 L Lipase 23 PD MEDICAL DECISION MAKING - ED course Complexity details: reviewed results, re-evaluated patient, considered differential, d/w patient ED course: Discussed the case with Dr. Kidd, cardiology at [facility] who graciously accepts in transfer. Some of the telemetry strips from her recent hospitalization appear to be postconversion sinus pauses, others are associated with A. fib, others are associated with sinus rhythm. Patient has had multiple episodes of near syncope. Patient will be transferred to [facility] for further care and evaluation. COBRA forms completed. This document was made in part using voice recognition software. While efforts are made to proofread this document, sound alike and grammatical errors may occur. Departure - Departure Disposition: 02 Transfer Acute Care Hosp Clinical Impression: Sinus pause, Atrial fibrillation with RVR
--- OUTSIDE RECORDS SUMMARY | 2021-10-26 12:52 | EXTERNAL MEDICAL SUMMARY RPT | Continuity of Care Document ---
:1940 Author Organization [facility] Address [address] [place] [address] Phone Care Team Providers Name Role Phone [...] and structure, unspecified site Ancillary Services [facility] [phone] Osteopenia [facility] Prim see Care & [...] Primary Care & Ancillary Services C phillip [phone] Disorder of bone and cartilage, [facility] Primary Care & unspecified Ancillary Services [facility] ph[facility]ip [phone] Chronic obstructive pulmonary disease, [facility] Primary Care & unspecified Ancillary Services C ph[facility]ip [phone] Chronic obstructive lung disease [facility] Primary Care & Ancillary Services C phillip [phone] Chronic airway obstruction, not [facility] Primary Care & elsewhere classified Ancillary Services [facility] Results No information.
--- NOTE | 2021-10-26 13:17 | XRAY Report ---
PROCEDURE: Chest 1 View X-Ray INDICATIONS: Chest pain TECHNIQUE: One view of the chest was acquired. COMPARISON: 10/25/2019 to FINDINGS: Surgical changes and devices: Right chest wall Port-A-Cath tip is in SVC.. Lungs and pleura: Persistent small left pleural effusion is seen. A small right pleural effusion also also noted new since previous study. There is mild pulmonary vascular congestion. No definite focal infiltrate. No gross pneumothorax. Mediastinum: Mediastinal contours appear normal. Heart size is normal. Bones and chest wall: No suspicious bony lesions. Overlying soft tissues appear unremarkable. IMPRESSION: Mild congestion and small bilateral pleural effusion increased since previous study. No gross pneumot horax. Reviewed by: Eliseo Salguero MD on 10/26/2021 1:16 PM PDT Approved by: Eliseo Salguero MD on 10/26/2021 1:16 PM PDT Station ID: [id number]
[2021-10-26 13:33] LABS: BASOPHILS % (AUTO) 0.2 %; EOSINOPHILS # (AUTO) 0.1 10^3/uL (0.0-0.7); EOSINOPHILS % (AUTO) 1.3 %; HCT - HEMATOCRIT 32.3 % (37.0-47.0); HGB - HEMOGLOBIN 10.4 g/dL (12.0-16.0); LYMPHOCYTES % (AUTO) 10.5 %; MEAN CORPUSCULAR HEMOGLOBIN 30.1 pg (27.0-31.0); MEAN CORPUSCULAR HGB CONC 32.2 g/dL (32.0-36.0); MEAN CORPUSCULAR VOLUME 93.4 fL (81.0-99.0); MEAN PLATELET VOLUME 10.8 fL (7.9-10.8); MONOCYTES # (AUTO) 0.8 10^3/uL (0.0-1.0); MONOCYTES % (AUTO) 8.5 %; NEUTROPHILS # (AUTO) 7.2 10^3/uL (1.5-6.6); NEUTROPHILS % (AUTO) 79.2 %; PLT - PLATELET COUNT 354 10^3/uL (130-450); RED BLOOD COUNT 3.46 10^6/uL (4.20-5.40); RED CELL DISTRIBUTION WIDTH 14.6 % (12.0-15.0); WHITE BLOOD COUNT 9.1 x10^3/uL (4.8-10.8)
[2021-10-26 14:02] LABS: ALBUMIN 2.9 g/dL (3.2-5.5); ALBUMIN/GLOBULIN RATIO 0.8 (1.0-2.2); BILIRUBIN,TOTAL 0.9 mg/dL (0.2-1.0); CALCIUM 8.6 mg/dL (8.5-10.3); CREATININE 0.7 mg/dL (0.4-1.0); POTASSIUM 3.4 mmol/L (3.5-5.0); TOTAL PROTEIN 6.4 g/dL (6.7-8.2)
[2021-10-26 14:19] VITALS: BP 136/104
== END 2021-10-26 15:18 | disposition short-term general hospital (02) ==
LOC: EDUNIT# → ED 12:40
DX: I49.5 Sick sinus syndrome (principal); I48.91 Unspecified atrial fibrillation; Z79.01 Long term (current) use of anticoagulants
CPT/HCPCS: 36415; 80053; 83690; 84484; 85025; 93005; 99283; 99285

== ENCOUNTER 2021-10-26 14:17 | Outpatient (CLI) | payer MEDICARE | END 2021-10-26 14:18 | disposition short-term general hospital (02) | LOC: EMS 14:17 | PROVIDERS: ATTEND Emergency Medicine | DX: I48.91 Unspecified atrial fibrillation (principal); I49.5 Sick sinus syndrome | CPT/HCPCS: A0425; A0426 ==

== ENCOUNTER 2022-07-16 10:13 | Emergency (ER) | payer MEDICARE ==
--- NOTE | 2022-07-16 11:03 | XRAY Report ---
PROCEDURE: Chest 1 View X-Ray INDICATIONS: SOA TECHNIQUE: One view of the chest was acquired. COMPARISON: Single view the chest dated 10/26/2021, CT of the chest dated 05/01/2022 FINDINGS: Surgical changes and devices: Cardiac pacer and right Port-A-Cath are unchanged. Lungs and pleura: Patchy pulmonary opacities are present at the right lung base and the left hilum. These are likely new when compared with the CT dated 05/01/2022. There is likely a small right effusio n. Mediastinum: Mediastinal contours appear normal. Heart size is normal. Bones and chest wall: No suspicious bony lesions. Overlying soft tissues appear unremarkable. IMPRESSION: Right basilar pulmonary radiopacities and left hilar radiopacities suspicious for multifocal infectio n or pneumonia. A small right pleural effusion may also be present. Short interval follow-up to resol ution recommended. Reviewed by: María Bravo MD on 07/16/2022 11:02 AM PST Approved by: María Bravo MD on 07/16/2022 11:02 AM PST Station ID: [id number]
[2022-07-16] MEDS ORDERED: DEXAMETHASONE 10 MG/ML VIAL IVP STA (11:06)
[2022-07-16] MEDS ORDERED: cefTRIAXone 1 GM in SODIUM CHLORIDE 0.9% MINIBAG 100 ML IV STA (11:06)
[2022-07-16] MEDS ORDERED: SODIUM CHLORIDE 0.9% 1,000 ML IV STA (11:06)
--- NOTE | 2022-07-16 11:08 | ED Physician Documentation ---
PD HPI DYSPNEA - Stated complaint Stated Complaint: SOA - Chief complaint Chief Complaint: Resp - History obtained from History obtained from: Patient, Family - History of Present Illness Timing - onset: How many days ago (10) Timing - onset during: Rest Timing - duration: Days (10) Timing - details: Gradual onset, Still present Inciting event(s): URI Improved by: Sitting up Worsened by: Laying flat, Coughing Associated symptoms: Cough Similar symptoms before: Has not had sx before Recently seen: Other - Additional information Additional information: 82-year-old female with a history of lung cancer who is on Keytruda and has had improvement in her lung cancer and she has now developed cough congestion and shortness of breath. She was seen in the clinic and placed on Augmentin has not had any improvement. This morning she was very short of breath and has come to the emergency department for evaluation and treatment. She has a complaint of being more short of breath if she is laying flat in her bed and comfortable if she is sitting up. She denies any peripheral edema. She has been in to see the peer counselor for atrial fibrillation she is a pacer in place and her atrial fibrillation has been stable. She does have a history of COPD but has never had a course of prednisone that she is aware of. Review of Systems Constitutional: denies: Fever Eyes: denies: Decreased vision Ears: denies: Ear pain Nose: reports: Congestion. denies: Rhinorrhea / runny nose Throat: denies: Sore throat Cardiac: denies: Chest pain / pressure, Palpitations, Pedal edema, Calf pain Respiratory: reports: Dyspnea, Cough GI: denies: Abdominal Pain, Nausea, Vomiting, Constipation, Diarrhea : denies: Dysuria, Frequency Skin: denies: Rash Musculoskeletal: denies: Neck pain, Back pain, Extremity pain Neurologic: denies: Generalized weakness, Focal weakness, Numbness PD PAST MEDICAL HISTORY - Past Medical History Cardiovascular: Hypertension, Atrial fibrillation, Arrhythmia Respiratory: COPD, Other Endocrine/Autoimmune: None GI: None : None HEENT: Other Psych: Depression, Anxiety Musculoskeletal: Osteoarthritis, Osteoporosis Derm: None - Past Surgical History 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 - Present Medications Home Medications: Ambulatory Orders Medication Instructions Recorded Confirmed Albuterol Sulf [Ventolin Hfa 2 puffs INH Q6H PRN 08/09/21 06/13/22 Inhaler] Fluticasone 110 Mcg [Flovent] 1 puffs INH BID 10/24/21 06/13/22 Lidocaine/Prilocain 2.5% Cream 1 applic TOP PRN PRN 10/24/21 06/13/22 [Emla 2.5% Cream] Apixaban [Eliquis] 2.5 mg PO BID #60 tablet 10/25/21 06/13/22 Cholecalciferol (Vitamin D3) 1,250 mcg PO DAILY #100 cap 10/25/21 06/13/22 [Vitamin D3] Ibuprofen 400 mg PO TID PRN #100 tab 10/25/21 06/13/22 Magnesium Hydroxide [Milk of 2,400 mg PO QPM PRN 10/25/21 06/13/22 Magnesia] Alendronate [Fosamax] 70 mg PO Q7D 11/06/21 06/13/22 Amiodarone [Pacerone] 200 mg PO DAILY 11/06/21 06/13/22 Metoprolol Tartrate [Lopressor] 100 mg PO BID 11/06/21 06/13/22 hydroCHLOROthiazide [Hydrodiuril] 25 mg PO DAILY 11/06/21 06/13/22 oxyCODONE [Roxicodone] 10 mg PO Q4-6H 11/06/21 06/13/22 busPIRone [Buspar] 10 mg PO BID 11/08/21 06/13/22 HYDROcod/ACETAM 5/325 [[place] 5/325] 1 tab PO Q6H PRN #90 tablet 12/20/21 06/13/22 Azithromycin [Zithromax] 250 mg PO DAILY #4 tablet 07/16/22 Cefdinir 300 mg PO BID #20 cap 07/16/22 predniSONE [Deltasone] 40 mg PO DAILY 5 Days #10 tablet 07/16/22 - Allergies Allergies/Adverse Reactions: Allergies Allergy/AdvReac Type Severity Reaction Status Date / Time No Known Drug Allergies Allergy Verified 07/16/22 10:27 - Social History Does the pt smoke?: No Smoking Status: Never smoker Does the pt drink ETOH?: No Does the pt have substance abuse?: No PD ED PE NORMAL - Vitals Vital signs reviewed: Yes (Pulse pressure low oxygen saturation at 92 while) - General General: Alert and oriented X 3, No acute distress, Well developed/nourished - HEENT HEENT: Atraumatic, PERRL, EOMI - Neck Neck: Supple, no meningeal sign, No bony TTP - Cardiac Cardiac: RRR, No murmur - Respiratory Respiratory: No respiratory distress, Other (Diminished breath sounds with crackles in the right base.) - Abdomen Abdomen: Soft, Non tender - Back Back: No CVA TTP, No spinal TTP - Derm Derm: Normal color, Warm and dry, No rash - Extremities Extremities: No deformity, No edema - Neuro Neuro: Alert and oriented X 3, supervisor refractory products 2-12 intact, No motor deficit, No sensory deficit, Normal speech Eye Opening: Spontaneous Motor: Obeys Commands Verbal: Oriented GCS Score: 15 - Psych Psych: Normal mood, Normal affect Results - Vitals Vitals: Vital Signs - 24 hr 07/16/22 07/16/22 07/16/22 10:20 10:40 12:44 Temperature 36.1 C L Heart Rate 63 63 60 Respiratory 20 20 20 Rate Blood Pressure 109/53 L O2 Saturation 92 92 93 If not protocol : Oxygen Flow, liters/minute 07/16/22 07/16/22 14:00 14:27 Temperature Heart Rate 60 70 Respiratory 16 22 Rate Blood Pressure 116/61 O2 Saturation 92 If not protocol 2 : Oxygen Flow, liters/minute Oxygen O2 Source Nasal cannula - Labs Labs: Laboratory Tests 07/16/22 07/16/22 07/16/22 11:20 11:20 11:20 WBC 8.9 RBC 3.87 L Hgb 12.0 Hct 36.6 L MCV 94.6 MCH 31.0 MCHC 32.8 RDW 13.7 Plt Count 419 MPV 9.8 Neut # (Auto) 6.8 H Lymph # (Auto) 1.1 L [place] # (Auto) 0.8 Eos # (Auto) 0.1 Baso # (Auto) 0.1 Absolute Nucleated RBC 0.00 Nucleated RBC % 0.0 Sodium 134 L Potassium 3.6 Chloride 98 L Carbon Dioxide 24 Anion Gap 12.0 BUN 31 H Creatinine 1.3 H Estimated GFR (MDRD) 39 L Glucose 95 Calcium 8.7 Total Bilirubin 1.0 AST 29 ALT 20 Alkaline Phosphatase 78 B-Natriuretic Peptide Total Protein 6.4 L Albumin 2.8 L Globulin 3.6 Albumin/Globulin Ratio 0.8 L Lipase 32 Nasal Adenovirus (PCR) NOT DETECTED Nasal B. parapertussis DNA (PCR) NOT DETECTED Nasal Coronavir 229E PCR NOT DETECTED Nasal Coronavir HKU1 PCR NOT DETECTED Nasal Coronavir NL63 PCR NOT DETECTED Nasal Coronavir OC43 PCR NOT DETECTED Nasal Enterovir/Rhinovir PCR NOT DETECTED Nasal Influenza B PCR NOT DETECTED Nasal Influenza A PCR NOT DETECTED Nasal Parainfluen 1 PCR NOT DETECTED Nasal Parainfluen 2 PCR NOT DETECTED Nasal Parainfluen 3 PCR NOT DETECTED Nasal Parainfluen 4 PCR NOT DETECTED Nasal RSV (PCR) NOT DETECTED Nasal B.pertussis DNA PCR NOT DETECTED Nasal C.pneumoniae (PCR) NOT DETECTED Wilbur Human Metapneumo PCR NOT DETECTED Nasal M.pneumoniae (PCR) NOT DETECTED Nasal SARS-CoV-2 (PCR) NOT DETECTED 07/16/22 11:20 WBC RBC Hgb Hct MCV MCH MCHC RDW Plt Count MPV Neut # (Auto) Lymph # (Auto) [place] # (Auto) Eos # (Auto) Baso # (Auto) Absolute Nucleated RBC Nucleated RBC % Sodium Potassium Chloride Carbon Dioxide Anion Gap BUN Creatinine Estimated GFR (MDRD) Glucose Calcium Total Bilirubin AST ALT Alkaline Phosphatase B-Natriuretic Peptide 233 H Total Protein Albumin Globulin Albumin/Globulin Ratio Lipase Nasal Adenovirus (PCR) Nasal B. parapertussis DNA (PCR) Nasal Coronavir 229E PCR Nasal Coronavir HKU1 PCR Nasal Coronavir NL63 PCR Nasal Coronavir OC43 PCR Nasal Enterovir/Rhinovir PCR Nasal Influenza B PCR Nasal Influenza A PCR Nasal Parainfluen 1 PCR Nasal Parainfluen 2 PCR Nasal Parainfluen 3 PCR Nasal Parainfluen 4 PCR Nasal RSV (PCR) Nasal B.pertussis DNA PCR Nasal C.pneumoniae (PCR) Wilbur Human Metapneumo PCR Nasal M.pneumoniae (PCR) Nasal SARS-CoV-2 (PCR) - Rads (name of study) chest Radiology: Prelim report reviewed (Impression: Right basilar pulmonary opacities and left hilar opacity suspicious for multifocal infection or pneumonia. A small right pleural effusion may also be present. Short interval follow-up to resolution recommended.), See rad report Procedures - IVC sono (time) 1100 Bedside IVC sono: IVC measures (cm) (0.92), IVC collapsed c insp (cm) (complete), Dehydration (est 2 liter deficit) PD Medical Decision Making - ED course Complexity details: reviewed old records, reviewed results, re-evaluated patient, considered differential, d/w patient, d/w family Reviewed Lab Results: We reviewed a complete blood count a blood chemistry, viral nasal PCR and a chest x-ray. We found a normal white blood cell count normal hematocrit hemoglobin and platelets. We found minimal hyponatremia with a sodium of 134. We found mild renal insufficiency with a BUN of 31 and a creatinine of 1.3. These are similar to the values for the patient for the past year. The nasal PCR showed no viruses on our 23 virus test. The chest x-ray showed infiltrate in the right base and in the left upper lobe. These were not present in comparison to chest CT done in May. This is interpreted as acute pneumonia. Social Determinants of Health: The patient is of advanced age at 82 and she does have a daughter who is at the bedside and appears invested in her care. ED course: 82-year-old female presents emerged part with shortness of breath and cough she is found to have infiltrate on her chest x-ray consistent with a pneumonia she is on Keytruda with improvement in her lung cancer. She is administered dexamethasone as well as saline intravenously. I did interrogate the inferior vena cava with POCUS and found her to be significantly dehydrated and she is administered saline as well. Despite a history that may suggest a component of congestive failure there is no evidence of congestive failure today. Patient had improvement in her general wellbeing. She was administered intravenous Rocephin and azithromycin. We will switch her outpatient antibiotic regimen from Augmentin to cefdinir and azithromycin. During the patient's stay in the emergency department she undulated with her oxygen saturation and some of them were as low as 87%. We administered a DuoNeb and treatment with marked and rapid resolution of this. She does have an albuterol inhaler at home and I have encouraged her use this as often as needed. She is feeling much improved at the time of discharge. Departure - Departure Disposition: 01 Home, Self Care Clinical Impression: Pneumonia Qualifiers: Pneumonia type: due to unspecified organism Laterality: bilateral Lung location: lower lobe of lung Qualified Code(s): J18.9 - Pneumonia, unspecified organism Condition: Stable Instructions: ED Pneumonia Adult Follow-Up: MARIAH MANUEL ARNP [Primary Care Provider] - Prescriptions: Cefdinir 300 mg PO BID #20 cap predniSONE [Deltasone] 40 mg PO DAILY 5 Days #10 tablet Azithromycin [Zithromax] 250 mg PO DAILY #4 tablet Comments: Lanie, today it appears you have pneumonia in both lungs. We have increased your antibiotic coverage and provided a dose of an anti-inflammatory steroid. We have E scribed the antibiotics and the steroid to the [facility] in [place]. The medications we administered today are long-acting and will suffice until tomorrow. My recommendation is to use your albuterol inhaler as often as needed for shortness of breath. Our expectation is slow and steady improvement. Pneumonia can be a bad player and it is possible to get sicker. If this happens hospitalization is indicated. Follow up with your primary doctor in the coming week for re-evaluation.
[2022-07-16 11:28] LABS: BASOPHILS # (AUTO) 0.1 10^3/uL (0.0-0.1); BASOPHILS % (AUTO) 0.7 %; EOSINOPHILS # (AUTO) 0.1 10^3/uL (0.0-0.7); EOSINOPHILS % (AUTO) 0.9 %; HCT - HEMATOCRIT 36.6 % (37.0-47.0); LYMPHOCYTES # (AUTO) 1.1 10^3/uL (1.5-3.5); MEAN CORPUSCULAR HGB CONC 32.8 g/dL (32.0-36.0); MEAN CORPUSCULAR VOLUME 94.6 fL (81.0-99.0); MEAN PLATELET VOLUME 9.8 fL (7.9-10.8); MONOCYTES # (AUTO) 0.8 10^3/uL (0.0-1.0); MONOCYTES % (AUTO) 9.2 %; NEUTROPHILS # (AUTO) 6.8 10^3/uL (1.5-6.6); NEUTROPHILS % (AUTO) 76.6 %; PLT - PLATELET COUNT 419 10^3/uL (130-450); RED BLOOD COUNT 3.87 10^6/uL (4.20-5.40); RED CELL DISTRIBUTION WIDTH 13.7 % (12.0-15.0); WHITE BLOOD COUNT 8.9 x10^3/uL (4.8-10.8)
[2022-07-16 11:48] LABS: ALBUMIN 2.8 g/dL (3.2-5.5); ALBUMIN/GLOBULIN RATIO 0.8 (1.0-2.2); CALCIUM 8.7 mg/dL (8.5-10.3); CREATININE 1.3 mg/dL (0.4-1.0); POTASSIUM 3.6 mmol/L (3.5-5.0); TOTAL PROTEIN 6.4 g/dL (6.7-8.2)
[2022-07-16] MEDS ORDERED: AZITHROMYCIN INJ 500 MG in SODIUM CHLORIDE 0.9% 250 ML IV STA (12:18)
[2022-07-16 12:24] LABS: B. PARAPERTUSSIS- RESP PCR PAN NOT DETECTED; B. PERTUSSIS- RESP PCR PANEL NOT DETECTED; C. PNEUMONIAE- RESP PCR PANEL NOT DETECTED; CORONAVIRUS 229E-RESP PCR NOT DETECTED; CORONAVIRUS HKU1-RESP PCR NOT DETECTED; CORONAVIRUS NL63-RESP PCR NOT DETECTED; CORONAVIRUS OC43-RESP PCR NOT DETECTED; HUMAN METAPNEUMOVIRUS NOT DETECTED; INFLUENZA A- RESP PCR PANEL NOT DETECTED; INFLUENZA B - RESP PCR PANEL NOT DETECTED; M. PNEUMONIAE- RESP PCR PANEL NOT DETECTED; PARAINFLUENZA VIRUS 1 NOT DETECTED; PARAINFLUENZA VIRUS 2 NOT DETECTED; PARAINFLUENZA VIRUS 3 NOT DETECTED; PARAINFLUENZA VIRUS 4 NOT DETECTED; RHINOVIRUS/ENTEROVIRUS NOT DETECTED; RSV- RESP PCR PANEL NOT DETECTED; SARS-CoV-2 -RESP PCR PANEL NOT DETECTED
[2022-07-16] MEDS ORDERED: IPRATROPIUM/ALBUTEROL 3 ML NEB INH STA (14:04)
[2022-07-16] MEDS ORDERED: ALBUTEROL NEB 2.5 MG/3 ML INH STA (16:10)
[2022-07-16 17:09] VITALS: BP 128/62
== END 2022-07-16 17:08 | disposition home or self-care (01) ==
LOC: ED 10:13
DX: J18.9 Pneumonia, unspecified organism (principal); C34.90 Malignant neoplasm of unspecified part of unspecified bronchus or lung
CPT/HCPCS: 36415; 80053; 83690; 83880; 85025; 87633; 94640; 94664; 96365; 96367; 96375; 99284

== ENCOUNTER 2023-05-05 07:44 | Emergency (ER) | payer MEDICARE ==
[2023-05-05] MEDS ORDERED: TETANUS/DIPHTHERIA/PERTUSSIS 0.5 ML SYRINGE IM ONE (08:25)
--- NOTE | 2023-05-05 09:28 | CT Report ---
PROCEDURE: CERVICAL SPINE WO INDICATIONS: fall on eliquis TECHNIQUE: Noncontrast 3 mm thick sections acquired from the skull base to the T4 level. Sagittal and coronal r eformats were then constructed. For radiation dose reduction, the following was used: automated exp osure control, adjustment of mA and/or kV according to patient size. COMPARISON: Correlation is made with the accompanying head CT. Correlation is also made with the loly or chest CT dated 02/20/2023. FINDINGS: Image quality: Excellent. Bones: No fractures or dislocations. Visualized superior ribs are intact. There is moderate disc space narrowing seen at C3-C4 and C4-C5, with at least moderate disc space mauricio rowing seen at C5-C6 and C6-C7. Posterior directed endplate osteophytes are seen, which are worst at C4-C5 and at C5-C6. There is overall straightening of the normal cervical lordosis. No significant A P alignment abnormality can be seen. Milder degenerative changes are seen elsewhere. Soft tissues: Prevertebral soft tissues are normal in thickness. No paravertebral hematomas. No ap ical pneumothoraces. Atherosclerotic calcification is seen. A stable left lung apex mass is seen. There is partial visualization of a right-sided chest port and left-sided pacer leads. IMPRESSION: Negative for fracture. Cervical spine degenerative changes are seen, which are worst inferiorly. Additional findings: Stable left lung apex mass Right-sided chest port Left-sided pacer leads Reviewed by: Dashawn Shannon MD on 05/05/2023 8:27 AM [facility] Approved by: Dashawn Shannon MD on 05/05/2023 8:27 AM [facility] Station ID: [id number]
--- NOTE | 2023-05-05 09:29 | CT Report ---
PROCEDURE: HEAD WO INDICATIONS: fall on eliquis TECHNIQUE: Noncontrast 4.5 mm thick angled axial sections acquired from the foramen magnum to the vertex. For r adiation dose reduction, the following was used: automated exposure control, adjustment of mA and/or kV according to patient size. COMPARISON: Correlation is made with the accompanying cervical spine CT. FINDINGS: Image quality: There is streak artifact seen through the skull base. CSF spaces: Basal cisterns are patent. No extra-axial fluid collections. Ventricles are normal in size and shape. Brain: No midline shift. No intracranial masses or hemorrhage. Parks-white matter interface is norm al. Skull and face: Calvarium and visualized facial bones are intact, without suspicious lesions. Sinuses: Visualized sinuses and mastoids are clear. IMPRESSION: No intracranial hemorrhage is seen. No significant intracranial abnormality is seen. Reviewed by: Dashawn Shannon MD on 05/05/2023 8:28 AM [facility] Approved by: Dashawn Shannon MD on 05/05/2023 8:28 AM [facility] Station ID: [id number]
--- NOTE | 2023-05-05 09:48 | XRAY Report ---
PROCEDURE: Ribs w/PA Chest RT INDICATIONS: fall on eliquis TECHNIQUE: 2 views of the right ribs were acquired, along with a single view chest. COMPARISON: Correlation is made with the accompanying CT imaging. Correlation is also made with [facility] CT, 02/20/2023. FINDINGS: Surgical changes and devices: There is a right-sided chest port seen. There is a left-sided pacer. Bones and chest wall: No fractures or dislocations. No suspicious bony lesions. Age-appropriate deg enerative changes are seen. Overlying soft tissues appear unremarkable. Lungs and pleura: No pleural effusions or pneumothorax. Known left upper lobe mass is partially. Mediastinum: Mediastinal contours appear normal. Heart size is normal. Calcification is seen of th e aortic arch. IMPRESSION: No displaced rib fracture or pneumothorax. Reviewed by: Dashawn Shannon MD on 05/05/2023 8:46 AM [facility] [[email or web address]] Approved by: Dashawn Shannon MD on 05/05/2023 8:46 AM [facility] [[email or web address]] Station ID: [id number]
--- NOTE | 2023-05-05 09:49 | XRAY Report ---
PROCEDURE: Hand 3 View BILAT INDICATIONS: fall on eliquis TECHNIQUE: 4 views of the hand(s) acquired. COMPARISON: None. FINDINGS: Bones: No fractures or dislocations. No suspicious bony lesions. Focal degenerative change is seen involving the first carpometacarpal joint on both sides, with milder degenerative changes seen elsewh ere. Soft tissues: Calcification can be seen involving the triangular fibrocartilage on both sides. IMPRESSION: Generalized degenerative changes, without a displaced fracture identified. Please correlate with focal tenderness. If there is point tenderness (or other clinical concern for a fracture not seen on these plain films) then please consider a dedicated CT study or a short term fo llow up plain film series for further evaluation. Reviewed by: Dashawn Shannon MD on 05/05/2023 8:48 AM [facility] Approved by: Dashawn Shannon MD on 05/05/2023 8:48 AM [facility] Station ID: [id number]
--- NOTE | 2023-05-05 09:50 | XRAY Report ---
PROCEDURE: Knee 3 View LT INDICATIONS: fall on eliquis TECHNIQUE: 3 views of the knee(s) were acquired. COMPARISON: None. FINDINGS: Bones: No fractures or dislocations. No suspicious bony lesions. Age-appropriate degenerative schroeder es are seen. Soft tissues: No knee joint effusion. No suspicious soft tissue calcifications or masses. Atheroscl erotic calcification is seen. IMPRESSION: No acute bony abnormality. If it would be helpful for clinical management decision making, please consider a dedicated, schedule d knee MRI for further evaluation (assuming that there is no contraindication). Reviewed by: Dashawn Shannon MD on 05/05/2023 8:48 AM [facility] Approved by: Dashawn Shannon MD on 05/05/2023 8:48 AM [facility] Station ID: [id number]
--- NOTE | 2023-05-05 10:12 | ED Physician Documentation ---
PD HPI HEAD INJURY - Stated complaint Stated Complaint: GLF - Chief complaint Chief Complaint: Trauma Hd/Nk - History obtained from History obtained from: Patient, Family - Additional information Additional information: Patient is an 82-year-old female presenting for evaluation of multiple contusions after a trip and fall on Saturday. Patient is on Eliquis. Patient states that she tripped over a bag of cat litter that was not in its usual place. She did hit her head. There was no LOC. Daughter at the bedside states that she heard her fall and came right to her attention. She had multiple skin tears and scrapes but did not want to seek evaluation at that time. She is unsure of her last tetanus. She is unable to remove a ring from her left hand.She reports pain to the right chest wall, Both hands and left knee. 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 - Present Medications Home Medications: Ambulatory Orders Medication Instructions Recorded Confirmed Albuterol Sulf [Ventolin Hfa 2 puffs INH Q6H PRN 08/09/21 05/05/23 Inhaler] Fluticasone 110 Mcg [Flovent] 1 puffs INH BID 10/24/21 05/05/23 Apixaban [Eliquis] 2.5 mg PO BID #60 tablet 10/25/21 05/05/23 Alendronate [Fosamax] 70 mg PO Q7D 11/06/21 05/05/23 Amiodarone [Pacerone] 200 mg PO DAILY 11/06/21 05/05/23 Metoprolol Tartrate [Lopressor] 100 mg PO BID 11/06/21 05/05/23 hydroCHLOROthiazide [Hydrodiuril] 25 mg PO DAILY 11/06/21 05/05/23 Cholecalciferol (Vitamin D3) 2,000 mcg PO DAILY 09/12/22 05/05/23 [Vitamin D3] Escitalopram [Lexapro] 10 mg PO DAILY 11/07/22 05/05/23 cephALEXin [Keflex] 500 mg PO Q6H #28 cap 05/05/23 - Allergies Allergies/Adverse Reactions: Allergies Allergy/AdvReac Type Severity Reaction Status Date / Time No Known Drug Allergies Allergy Verified 11/28/22 15:18 - Social History Does the pt smoke?: No Smoking Status: Never smoker Does the pt drink ETOH?: No Does the pt have substance abuse?: No PD ED PE NORMAL - General General: Alert and oriented X 3, No acute distress, Well developed/nourished - HEENT HEENT: PERRL, EOMI, Moist mucous membranes, Pharynx benign, Other (Ecchymosis to Right forehead and extending down over nasal bridge and primarily around right eye, no raccoon eyes, No nasal tenderness) - Neck Neck: Supple, no meningeal sign, No bony TTP - Cardiac Cardiac: RRR, Strong equal pulses - Respiratory Respiratory: No respiratory distress, Clear bilaterally, Other (R chest wall tenderness; no bruising or crepitus) - Abdomen Abdomen: Soft, Non tender, Non distended - Back Back: No spinal TTP - Derm Derm: Warm and dry - Extremities Extremities: Other (Skin tear to R palm, L 3rd/4rth digits, L knee; Mild erythema to the skin tear surrounding left knee, normal range of motion at all joints) - Neuro Neuro: Alert and oriented X 3, chainman 2-12 intact, No motor deficit, No sensory deficit, Normal speech Results - Vitals Vitals: Vital Signs - 24 hr 05/05/23 05/05/23 05/05/23 07:55 09:37 10:28 Temperature 36.1 C L Heart Rate 65 60 62 Respiratory 16 18 18 Rate Blood Pressure 121/52 L 145/66 H 151/78 H O2 Saturation 100 99 96 Oxygen O2 Source Room air Procedures - General procedure General procedure: Ring on left hand was unable to be removed due to swelling and bruising. It was cut with the ring rescue device and removed in its entirety and patient was given the pieces of the ring back. PD Medical Decision Making - ED course Complexity details: reviewed results, re-evaluated patient, d/w patient, d/w family ED course: Patient is an 82-year-old female presenting for evaluation of a head injury on Saturday. She is on Eliquis and has multiple skin tears as well as contusions. CT head and C-spine were obtained and reviewed with the no acute findings. X-r ays were obtained of the chest with focus on right ribs, both hands, left knee with no signs of bony injury or pneumothorax. Patient does have a several wounds but these have been open for 2 days and primary closure is not indicated at this time. Her tetanus was updated. Wounds were dressed. She does have some surrounding erythema to large skin tear on her left knee so was started on antibiotic with concerns for early cellulitis. No signs of joint infection. Patient is counseled on treatment plan as well as concerning symptoms to return for. Departure - Departure Disposition: Home, Self Care Clinical Impression: Head injury, Multiple bruises, Multiple skin tears, Cellulitis of left knee Condition: Stable Instructions: ED Infec Skin Cellulitis, ED Contusion Soft Tissue, ED Head Injury Closed, ED Avulsion Dermal Prescriptions: cephALEXin [Keflex] 500 mg PO Q6H #28 cap Comments: Your CT scans and x-rays do not show any broken bones. We did remove a ring from your left hand. Please do not place any jewelry on any of your fingers until the swelling has completely resolved. You have multiple skin tears and open wounds. I am concerned that the 1 on the left knee has become infected and starting you on an antibiotic. I have sent this prescription to [email or web address] in [place]. You can apply bacitracin to wounds. Please make sure to keep them clean and dry. Return to the emergency department with any worsening symptoms. Forms: PCP List Discharge Date/Time: 05/05/23 10:45
[2023-05-05 10:37] VITALS: BP 151/78; O2SAT 96
== END 2023-05-05 10:45 | disposition home or self-care (01) ==
LOC: ED 07:44
DX: S09.90XA Unspecified injury of head, initial encounter (principal); L03.116 Cellulitis of left lower limb; S00.83XA Contusion of other part of head, initial encounter; S00.33XA Contusion of nose, initial encounter; S61.411A Laceration without foreign body of right hand, initial encounter; S61.213A Laceration without foreign body of left middle finger without damage to nail, initial encounter; S61.215A Laceration without foreign body of left ring finger without damage to nail, initial encounter; S81.012A Laceration without foreign body, left knee, initial encounter; W01.10XA Fall on same level from slipping, tripping and stumbling with subsequent striking against unspecified object, initial encounter; I10 Essential (primary) hypertension; I48.91 Unspecified atrial fibrillation; J44.9 Chronic obstructive pulmonary disease, unspecified; Z23 Encounter for immunization; Z79.899 Other long term (current) drug therapy; Z79.01 Long term (current) use of anticoagulants
CPT/HCPCS: 90471; 99284

== ENCOUNTER 2023-10-21 08:00 | Outpatient (CLI) | payer MEDICARE | END 2023-10-21 08:01 | disposition home or self-care (01) | LOC: PC 08:00 | PROVIDERS: ATTEND Nurse Practitioner Adult Health | DX: Z53.9 Procedure and treatment not carried out, unspecified reason (principal) ==

== ENCOUNTER 2023-10-23 08:00 | Outpatient (CLI) | payer MEDICARE | END 2023-10-23 23:59 | disposition home or self-care (01) | LOC: PC 08:00 | PROVIDERS: ATTEND Nurse Practitioner Adult Health | DX: Z51.5 Encounter for palliative care (principal); C34.12 Malignant neoplasm of upper lobe, left bronchus or lung; J44.9 Chronic obstructive pulmonary disease, unspecified; I48.91 Unspecified atrial fibrillation; Z79.01 Long term (current) use of anticoagulants; Z79.51 Long term (current) use of inhaled steroids; Z79.899 Other long term (current) drug therapy; G25.0 Essential tremor; Z95.0 Presence of cardiac pacemaker; R53.83 Other fatigue; F32.A Depression, unspecified; M62.81 Muscle weakness (generalized) | CPT/HCPCS: 99350 ==

== ENCOUNTER 2024-01-29 09:09 | Emergency (ER) | payer MEDICARE ==
--- NOTE | 2024-01-29 09:54 | ED Physician Documentation ---
PD HPI Fall - Stated complaint Stated Complaint: FALL, RT LEG PX, DIARRHEA - Chief complaint Chief Complaint: Trauma Ext - History obtained from History obtained from: Patient, Family - History of Present Illness Fall distance: Standing position (somewhat standing, was trying to put on pants and lost balance. Fell to forward right. No LANGLEY. May have struck head. Is on DOAC for fib. No altered MS nor LOC. Pain right pelvic area when tried to stand up and walk.) Where injury occurred: Home Timing - onset: Today Injury(ies) location: Head, Right Lower Extremity Pain level max: 3 Pain level now: 3 Associated symptoms: Weakness (generalized prior to the fall, due to recent flu like illness past 3 days.). No: LOC, AMS, Paresthesias Worsens with: Movement Contributing factors: Anticoagulated Similar symptoms before: Has not had sx before Review of Systems Constitutional: reports: Myalgias, Fatigue. denies: Fever Nose: reports: Congestion Respiratory: reports: Cough, Wheezing GI: reports: Nausea, Diarrhea. 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 Cardiovascular: Pacemaker - Present Medications Home Medications: Ambulatory Orders Medication Instructions Recorded Confirmed Albuterol Sulf [Ventolin Hfa 2 puffs INH Q6H PRN 08/09/21 10/16/23 Inhaler] Fluticasone 110 Mcg [Flovent] 1 puffs INH BID 10/24/21 10/16/23 Apixaban [Eliquis] 2.5 mg PO BID #60 tablet 10/25/21 10/16/23 Alendronate [Fosamax] 70 mg PO Q7D 11/06/21 10/16/23 Amiodarone [Pacerone] 200 mg PO DAILY 11/06/21 10/16/23 Metoprolol Tartrate [Lopressor] 100 mg PO BID 11/06/21 10/16/23 hydroCHLOROthiazide [Hydrodiuril] 25 mg PO DAILY 11/06/21 10/16/23 Cholecalciferol (Vitamin D3) 2,000 mcg PO DAILY 09/12/22 10/16/23 [Vitamin D3] Escitalopram [Lexapro] 10 mg PO DAILY 11/07/22 10/16/23 cephALEXin [Keflex] 500 mg PO Q6H #28 cap 05/05/23 10/16/23 Benzonatate [Tessalon] 100 mg PO TID PRN #20 cap 01/29/24 Clotrimazole/Betamethasone Crm 2 gm TOP BID #45 gm 01/29/24 [Lotrisone Cream] HYDROcod/ACETAM 5/325 [[place] 5/325] 1 ea PO Q6H PRN #18 tablet 01/29/24 Loperamide [Imodium] 2 mg PO TID PRN #15 cap 01/29/24 - Allergies Allergies/Adverse Reactions: Allergies Allergy/AdvReac Type Severity Reaction Status Date / Time No Known Drug Allergies Allergy Verified 01/29/24 09:20 - Social History Does the pt smoke?: No Smoking Status: Never smoker Does the pt drink ETOH?: No Does the pt have substance abuse?: No - Immunizations Immunizations are current?: Yes PD ED PE NORMAL - Vitals Vital signs reviewed: Yes - General General: Alert and oriented X 3, No acute distress, Well developed/nourished - HEENT HEENT: Atraumatic, PERRL, EOMI - Neck Neck: Supple, no meningeal sign, No bony TTP, No adenopathy - Respiratory Respiratory: No respiratory distress, Clear bilaterally, Other (has had cough and dyspnea for several days. Using MDI at home. ) - Abdomen Abdomen: Soft, Non tender - Back Back: No CVA TTP, No spinal TTP - Derm Derm: Normal color, Warm and dry, Other (has perirectal rash from frequent diarrhea the past couple of days. Appears yeastlike. ) Results - Vitals Vitals: Oxygen O2 Source Room air - Labs Labs: Laboratory Tests 01/29/24 01/29/24 01/29/24 09:35 09:35 09:35 WBC 10.1 RBC 3.71 L Hgb 11.5 L Hct 36.4 L MCV 98.1 MCH 31.0 MCHC 31.6 L RDW 14.4 Plt Count 311 MPV 10.9 H Neut # (Auto) 7.7 H Lymph # (Auto) 1.2 L Lipscomb # (Auto) 1.1 H Eos # (Auto) 0.1 Baso # (Auto) 0.0 Absolute Nucleated RBC 0.00 Nucleated RBC % 0.0 PT 18.5 H INR 1.8 H Sodium 136 Potassium 4.1 Chloride 99 L Carbon Dioxide 29 Anion Gap 8.0 BUN 24 H Creatinine 1.6 H Estimated GFR (MDRD) 31 L Glucose 104 Calcium 8.9 Magnesium 1.6 L Total Bilirubin 1.3 H AST 48 H ALT 48 Alkaline Phosphatase 75 Total Protein 6.7 Albumin 3.8 Globulin 2.9 Albumin/Globulin Ratio 1.3 Lipase 27 Nasal Adenovirus (PCR) Nasal B. parapertussis DNA (PCR) Nasal Coronavir 229E PCR Nasal Coronavir HKU1 PCR Nasal Coronavir NL63 PCR Nasal Coronavir OC43 PCR Nasal Enterovir/Rhinovir PCR Nasal Influenza B PCR Nasal Influenza A PCR Nasal Parainfluen 1 PCR Nasal Parainfluen 2 PCR Nasal Parainfluen 3 PCR Nasal Parainfluen 4 PCR Nasal RSV (PCR) Nasal B.pertussis DNA PCR Nasal C.pneumoniae (PCR) Wilbur Human Metapneumo PCR Nasal M.pneumoniae (PCR) Nasal SARS-CoV-2 (PCR) 01/29/24 10:48 WBC RBC Hgb Hct MCV MCH MCHC RDW Plt Count MPV Neut # (Auto) Lymph # (Auto) Lipscomb # (Auto) Eos # (Auto) Baso # (Auto) Absolute Nucleated RBC Nucleated RBC % PT INR Sodium Potassium Chloride Carbon Dioxide Anion Gap BUN Creatinine Estimated GFR (MDRD) Glucose Calcium Magnesium Total Bilirubin AST ALT Alkaline Phosphatase Total Protein Albumin Globulin Albumin/Globulin Ratio Lipase Nasal Adenovirus (PCR) NOT DETECTED Nasal B. parapertussis DNA (PCR) NOT DETECTED Nasal Coronavir 229E PCR NOT DETECTED Nasal Coronavir HKU1 PCR NOT DETECTED Nasal Coronavir NL63 PCR NOT DETECTED Nasal Coronavir OC43 PCR NOT DETECTED Nasal Enterovir/Rhinovir PCR DETECTED A Nasal Influenza B PCR NOT DETECTED Nasal Influenza A PCR NOT DETECTED Nasal Parainfluen 1 PCR NOT DETECTED Nasal Parainfluen 2 PCR NOT DETECTED Nasal Parainfluen 3 PCR NOT DETECTED Nasal Parainfluen 4 PCR NOT DETECTED Nasal RSV (PCR) NOT DETECTED Nasal B.pertussis DNA PCR NOT DETECTED Nasal C.pneumoniae (PCR) NOT DETECTED Wilbur Human Metapneumo PCR NOT DETECTED Nasal M.pneumoniae (PCR) NOT DETECTED Nasal SARS-CoV-2 (PCR) NOT DETECTED - Rads (name of study) head CT Relevant Findings:: Prelim report reviewed (no ICH), EMP independent interpretat ion of test pelvic CT Relevant Findings:: Prelim report reviewed (prior ramus fx healed again seen. No new fractures. ), EMP independent interpretation of test chest xray Relevant Findings:: Prelim report reviewed, EMP independent interpretation of test (no infiltrates) PD Medical Decision Making - ED course Complexity details: reviewed results (has pain with walking right pelvic area. Hip xray without hip fx. Ramus fx seen. CT pelvis done and ramus fx seen, but is similar to prior CT finding, so old fracture. No apparent new fx. Head CT without ICH. CXR without pneumonia. ), re-evaluated patient (she is able to walk with walker, though hurting pelvis. Consider strain muscles. Has prior ramus fx from years ago and CT does not appear new fx at the area but could be disrupted of callus. Otherwise contusion/strain. ), considered differential (has been ill with cough, diarrhea, less intake. felt weak and fell. No full syncope. ), d/w patient Departure - Departure Disposition: 01 Home, Self Care Clinical Impression: Upper respiratory infection, Rhinovirus infection, Pelvic contusion, Anticoagulant long-term use, Rash Condition: Stable Record reviewed to determine appropriate education?: Yes Follow-Up: Cheryl Delgado ARNP [Primary Care Provider] - Prescriptions: Loperamide [Imodium] 2 mg PO TID PRN #15 cap PRN Reason: Diarrhea Clotrimazole/Betamethasone Crm [Lotrisone Cream] 2 gm TOP BID #45 gm HYDROcod/ACETAM 5/325 [[place] 5/325] 1 ea PO Q6H PRN #18 tablet PRN Reason: Pain Benzonatate [Tessalon] 100 mg PO TID PRN #20 cap PRN Reason: Cough Comments: Your chest x-ray is clear without any signs of pneumonia. The respiratory viral panel test was positive for rhinovirus. Negative for COVID flu RSV and a few others. This will still cause a lot of coughing and wheezing and general weakness and can be causing the diarrhea as well. The cough medicine you are using could be contributing to some of the diarrhea though more likely just the illness. The cough medicine with the dextromethorphan is likely causing some of the vivid dreams and perhaps a little off balance. I would stop using any dextromethorphan containing cough medicine. As an alternative for cough you could use benzonatate/Tessalon. You can use Imodium for the diarrhea. Given the rawness of the skin in the perirectal area, I would use a combination of antifungal and steroid medication. I wrote a prescription for some of that. In the edition use a barrier cream such as Desitin or Kaz's Butt paste or something like that to help protect the skin. For your pains, you can use Tylenol 500 to 650 mg regularly for the next several days to a week. Add hydrocodone every 4-6 hours if needed for pains. Continue with your regular inhalers regularly 4 times a day to help with the breathing. I would anticipate improvement over the next several days more. There can be some persisting trouble breathing and cough even for a month or so after some of these respiratory infections. Forms: PCP List Discharge Date/Time: 01/29/24 13:02
[2024-01-29 09:59] LABS: BASOPHILS % (AUTO) 0.2 %; EOSINOPHILS # (AUTO) 0.1 10^3/uL (0.0-0.7); EOSINOPHILS % (AUTO) 0.9 %; HCT - HEMATOCRIT 36.4 % (37.0-47.0); HGB - HEMOGLOBIN 11.5 g/dL (12.0-16.0); LYMPHOCYTES # (AUTO) 1.2 10^3/uL (1.5-3.5); LYMPHOCYTES % (AUTO) 11.8 %; MEAN CORPUSCULAR HGB CONC 31.6 g/dL (32.0-36.0); MEAN CORPUSCULAR VOLUME 98.1 fL (81.0-99.0); MEAN PLATELET VOLUME 10.9 fL (7.9-10.8); MONOCYTES # (AUTO) 1.1 10^3/uL (0.0-1.0); MONOCYTES % (AUTO) 10.4 %; NEUTROPHILS # (AUTO) 7.7 10^3/uL (1.5-6.6); NEUTROPHILS % (AUTO) 76.4 %; PLT - PLATELET COUNT 311 10^3/uL (130-450); RED BLOOD COUNT 3.71 10^6/uL (4.20-5.40); RED CELL DISTRIBUTION WIDTH 14.4 % (12.0-15.0); WHITE BLOOD COUNT 10.1 x10^3/uL (4.8-10.8)
[2024-01-29 10:08] LABS: INR 1.8 (0.8-1.2); PT - PROTHROMBIN TIME 18.5 secs (9.9-12.6)
--- NOTE | 2024-01-29 10:09 | XRAY Report ---
PROCEDURE: Chest 1V INDICATIONS: cough for days TECHNIQUE: One view of the chest was acquired. COMPARISON: None. FINDINGS: Surgical changes and devices: Left-sided pacer. Right-sided portacatheter. Lungs and pleura: No pleural effusions or pneumothorax. Lungs are clear. Mediastinum: Mediastinal contours appear normal. Heart size is normal. Bones and chest wall: No suspicious bony lesions. Overlying soft tissues appear unremarkable. IMPRESSION: No acute cardiopulmonary process. Reviewed by: Christine Padilla MD on 01/29/2024 10:08 AM PDT Approved by: Christine Padilla MD on 01/29/2024 10:08 AM PDT Station ID: [id number]
--- NOTE | 2024-01-29 10:10 | XRAY Report ---
PROCEDURE: Hip w/Pelvis 2-3V RT INDICATIONS: fall with hip/pelvic pain TECHNIQUE: 2 views of the hip were acquired. COMPARISON: None. FINDINGS: Bones: Mildly displaced right inferior pubic ramus fracture. No suspicious bony lesions. Soft tissues: No suspicious soft tissue calcifications or masses. IMPRESSION: Right inferior pubic ramus fracture. Reviewed by: Christine Padilla MD on 01/29/2024 10:09 AM PDT Approved by: Christine Padilla MD on 01/29/2024 10:09 AM PDT Station ID: [id number]
[2024-01-29 10:15] LABS: ALBUMIN 3.8 g/dL (3.2-5.5); ALBUMIN/GLOBULIN RATIO 1.3 (1.0-2.2); BILIRUBIN,TOTAL 1.3 mg/dL (0.2-1.0); CALCIUM 8.9 mg/dL (8.5-10.3); CREATININE 1.6 mg/dL (0.6-1.3); MAGNESIUM 1.6 mg/dL (1.7-2.3); POTASSIUM 4.1 mmol/L (3.5-4.5); TOTAL PROTEIN 6.7 g/dL (6.4-8.9)
--- NOTE | 2024-01-29 10:32 | CT Report ---
PROCEDURE: Head WO INDICATIONS: fall, struck head, on DOAC TECHNIQUE: Noncontrast 4.5 mm thick angled axial sections acquired from the foramen magnum to the vertex. For r adiation dose reduction, the following was used: automated exposure control, adjustment of mA and/or kV according to patient size. COMPARISON: 05/05/2023 FINDINGS: Image quality: Excellent. CSF spaces: Basal cisterns are patent. No extra-axial fluid collections. Ventricles are normal in size and shape. Brain: No midline shift. No intracranial masses or hemorrhage. Mild diffuse cerebral volume loss. M ild degree of patchy low density within the periventricular and subcortical white matter. Parks-white matter interface is normal. Skull and face: Calvarium and visualized facial bones are intact, without suspicious lesions. Sinuses: Visualized sinuses and mastoids are clear. IMPRESSION: No acute intracranial pathology. Reviewed by: Christine Padilla MD on 01/29/2024 10:31 AM PDT Approved by: Christine Padilla MD on 01/29/2024 10:31 AM PDT Station ID: [id number]
--- NOTE | 2024-01-29 10:34 | CT Report ---
PROCEDURE: Pelvis WO INDICATIONS: fall with hip pain; likely inf ramus fx on xray TECHNIQUE: Noncontrast 3 mm axial sections acquired through the bony pelvis, with coronal and sagittal reformatt ing. For radiation dose reduction, the following was used: automated exposure control, adjustment of mA and/or kV according to patient size. COMPARISON: Plain films dated 01/29/2024 FINDINGS: Image quality: Excellent. Bones: As before, there is a right inferior pubic ramus fracture which is mildly displaced. No osseo us lesion. Soft tissues: Visualized bowel loops and vasculature are normal in caliber. No regional adenopathy. IMPRESSION: No change in right inferior pubic ramus fracture. Reviewed by: Christine Padilla MD on 01/29/2024 10:33 AM PDT Approved by: Christine Padilla MD on 01/29/2024 10:33 AM PDT Station ID: [id number]
[2024-01-29] MEDS: KETOROLAC 15 MG/ML VIAL IVP STA ×2 (11:07→11:10)
[2024-01-29] MEDS: HYDROmorphone 1 MG/ML CARPUJECT IVP STA ×2 (11:08→11:11)
[2024-01-29 12:14] LABS: B. PARAPERTUSSIS- RESP PCR PAN NOT DETECTED; B. PERTUSSIS- RESP PCR PANEL NOT DETECTED; C. PNEUMONIAE- RESP PCR PANEL NOT DETECTED; CORONAVIRUS 229E-RESP PCR NOT DETECTED; CORONAVIRUS HKU1-RESP PCR NOT DETECTED; CORONAVIRUS NL63-RESP PCR NOT DETECTED; CORONAVIRUS OC43-RESP PCR NOT DETECTED; HUMAN METAPNEUMOVIRUS NOT DETECTED; INFLUENZA A- RESP PCR PANEL NOT DETECTED; INFLUENZA B - RESP PCR PANEL NOT DETECTED; M. PNEUMONIAE- RESP PCR PANEL NOT DETECTED; PARAINFLUENZA VIRUS 1 NOT DETECTED; PARAINFLUENZA VIRUS 2 NOT DETECTED; PARAINFLUENZA VIRUS 3 NOT DETECTED; PARAINFLUENZA VIRUS 4 NOT DETECTED; RHINOVIRUS/ENTEROVIRUS DETECTED; RSV- RESP PCR PANEL NOT DETECTED; SARS-CoV-2 -RESP PCR PANEL NOT DETECTED
[2024-01-29] MEDS: ACETAMINOPHEN 325 MG TABLET PO STA (12:23)
[2024-01-29] MEDS: LOPERAMIDE 2 MG CAPSULE PO STA (12:23)
[2024-01-29 12:38] VITALS: BP 127/57; O2SAT 95
== END 2024-01-29 13:02 | disposition home or self-care (01) ==
LOC: ED 09:09
DX: S30.0XXA Contusion of lower back and pelvis, initial encounter (principal); W19.XXXA Unspecified fall, initial encounter; Y92.009 Unspecified place in unspecified non-institutional (private) residence as the place of occurrence of the external cause; R53.1 Weakness; J06.9 Acute upper respiratory infection, unspecified; B97.89 Other viral agents as the cause of diseases classified elsewhere; R21 Rash and other nonspecific skin eruption; R19.7 Diarrhea, unspecified; I48.91 Unspecified atrial fibrillation; J44.9 Chronic obstructive pulmonary disease, unspecified; Z20.818 Contact with and (suspected) exposure to other bacterial communicable diseases; Z20.822 Contact with and (suspected) exposure to COVID-19; Z20.828 Contact with and (suspected) exposure to other viral communicable diseases; Z79.01 Long term (current) use of anticoagulants
CPT/HCPCS: 36415; 70450; 71045; 72192; 73502; 80053; 83690; 83735; 85025; 85610; 87633; 96374; 96375; 99284; A9270; J1170

== ENCOUNTER 2024-02-02 11:53 | Emergency (ER) | payer MEDICARE ==
[2024-02-02 13:23] LABS: BASOPHILS % (AUTO) 0.2 %; EOSINOPHILS % (AUTO) 0.1 %; HCT - HEMATOCRIT 35.6 % (37.0-47.0); HGB - HEMOGLOBIN 11.2 g/dL (12.0-16.0); LYMPHOCYTES # (AUTO) 1.5 10^3/uL (1.5-3.5); LYMPHOCYTES % (AUTO) 10.3 %; MEAN CORPUSCULAR HEMOGLOBIN 30.5 pg (27.0-31.0); MEAN CORPUSCULAR HGB CONC 31.5 g/dL (32.0-36.0); MONOCYTES % (AUTO) 13.6 %; NEUTROPHILS # (AUTO) 11.1 10^3/uL (1.5-6.6); NEUTROPHILS % (AUTO) 75.3 %; PLT - PLATELET COUNT 390 10^3/uL (130-450); RED BLOOD COUNT 3.67 10^6/uL (4.20-5.40); RED CELL DISTRIBUTION WIDTH 14.4 % (12.0-15.0); WHITE BLOOD COUNT 14.8 x10^3/uL (4.8-10.8)
[2024-02-02 13:31] LABS: SLIDE REVIEW? Indicated
[2024-02-02 13:39] LABS: ALBUMIN 3.7 g/dL (3.2-5.5); ALBUMIN/GLOBULIN RATIO 1.1 (1.0-2.2); BILIRUBIN,TOTAL 1.2 mg/dL (0.2-1.0); CALCIUM 8.9 mg/dL (8.5-10.3); CREATININE 1.6 mg/dL (0.6-1.3); POTASSIUM 3.2 mmol/L (3.5-4.5)
--- NOTE | 2024-02-02 13:50 | ED Physician Documentation ---
History of Present Illness - Stated complaint Stated Complaint: GENERAL WEAKNESS,UNABLE TO SLEEP - Chief complaint Chief Complaint: General - History obtained from History obtained from: Patient, Family - Additonal information Additional information: Patient is an 83-year-old female who presents to the emergency department with generalized weakness. She was seen here approximately 4 days ago, had a right inferior pubic ramus fracture. Also diagnosed with rhinovirus. She is using a cane at home. Has had continued cough. Feels generally weak. She lives alone but her daughter helps to take care of her. Her daughter is asking about assisted living facilities, the patient does not want to go to an assisted living facility at this time however. No vomiting. Diarrhea improving. No abdominal pain. 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 Cardiovascular: Pacemaker - Present Medications Home Medications: Ambulatory Orders Medication Instructions Recorded Confirmed Albuterol Sulf [Ventolin Hfa 2 puffs INH Q6H PRN 08/09/21 10/16/23 Inhaler] Fluticasone 110 Mcg [Flovent] 1 puffs INH BID 10/24/21 10/16/23 Apixaban [Eliquis] 2.5 mg PO BID #60 tablet 10/25/21 10/16/23 Alendronate [Fosamax] 70 mg PO Q7D 11/06/21 10/16/23 Amiodarone [Pacerone] 200 mg PO DAILY 11/06/21 10/16/23 Metoprolol Tartrate [Lopressor] 100 mg PO BID 11/06/21 10/16/23 hydroCHLOROthiazide [Hydrodiuril] 25 mg PO DAILY 11/06/21 10/16/23 Cholecalciferol (Vitamin D3) 2,000 mcg PO DAILY 09/12/22 10/16/23 [Vitamin D3] Escitalopram [Lexapro] 10 mg PO DAILY 11/07/22 10/16/23 cephALEXin [Keflex] 500 mg PO Q6H #28 cap 05/05/23 10/16/23 Benzonatate [Tessalon] 100 mg PO TID PRN #20 cap 01/29/24 Clotrimazole/Betamethasone Crm 2 gm TOP BID #45 gm 01/29/24 [Lotrisone Cream] HYDROcod/ACETAM 5/325 [[place] 5/325] 1 ea PO Q6H PRN #18 tablet 01/29/24 Loperamide [Imodium] 2 mg PO TID PRN #15 cap 01/29/24 oxyCODONE [Roxicodone] 2.5 mg PO Q6H PRN #10 tablet MDD 6 02/02/24 - Allergies Allergies/Adverse Reactions: Allergies Allergy/AdvReac Type Severity Reaction Status Date / Time No Known Drug Allergies Allergy Verified 02/02/24 13:27 - Social History Does the pt smoke?: No Smoking Status: Never smoker Does the pt drink ETOH?: No Does the pt have substance abuse?: No - Immunizations Immunizations are current?: Yes PD ED PE NORMAL - Vitals Vital signs reviewed: Yes - General General: Alert and oriented X 3, No acute distress, Well developed/nourished - HEENT HEENT: PERRL, Moist mucous membranes - Neck Neck: Supple, no meningeal sign - Cardiac Cardiac: RRR - Respiratory Respiratory: No respiratory distress, Other (mild crackles B) - Abdomen Abdomen: Soft, Non tender, Non distended - Derm Derm: Warm and dry - Extremities Extremities: No edema, No calf tenderness / cord - Neuro Neuro: Alert and oriented X 3 - Psych Psych: Normal mood, Normal affect Results - Vitals Vitals: Vital Signs - 24 hr 02/02/24 02/02/24 02/02/24 12:11 13:31 15:00 Temperature 36.3 C L Heart Rate 62 61 60 Respiratory 20 23 19 Rate Blood Pressure 111/89 H 118/46 L O2 Saturation 94 97 96 02/02/24 15:53 Temperature Heart Rate 62 Respiratory 20 Rate Blood Pressure 109/68 O2 Saturation 98 Oxygen O2 Source Room air - Labs Labs: Laboratory Tests 02/02/24 02/02/24 13:20 13:20 WBC 14.8 H RBC 3.67 L Hgb 11.2 L Hct 35.6 L MCV 97.0 MCH 30.5 MCHC 31.5 L RDW 14.4 Plt Count 390 MPV 11.0 H Neut # (Auto) 11.1 H Lymph # (Auto) 1.5 Cochran # (Auto) 2.0 H Eos # (Auto) 0.0 Baso # (Auto) 0.0 Absolute Nucleated RBC 0.00 Nucleated RBC % 0.0 Manual Slide Review Indicated RBC Morph Micro Appear 2+ ANISOCYTOSIS Sodium 131 L Potassium 3.2 L Chloride 95 L Carbon Dioxide 24 Anion Gap 12.0 BUN 27 H Creatinine 1.6 H Estimated GFR (MDRD) 31 L Glucose 118 H Calcium 8.9 Total Bilirubin 1.2 H AST 40 ALT 36 Alkaline Phosphatase 59 Total Protein 7.0 Albumin 3.7 Globulin 3.3 Albumin/Globulin Ratio 1.1 Lipase 10 L - Rads (name of study) cxr Relevant Findings:: Final report received, See rad report PD Medical Decision Making - ED course Complexity details: reviewed results, re-evaluated patient, considered differential, d/w patient, d/w family ED course: Patient is well-appearing, nontoxic. Afebrile. No hypoxia or respiratory distress. She has a known right inferior pubic ramus fracture from CT scan on January 28. Recommend she use a walker or cane at home. She does appear to be mildly dehydrated here. Her sodium is 131 with chloride of 95. Creatinine is not significantly changed from prior. Family and patient were interested in speaking with the vp digital marketing social media and crm regarding assisted living versus caregivers. Social work did meet with the patient and family. Patient's pain is well- controlled with a dose of oxycodone. We will plan prescribe this for home. She does not appear to have altered mental status from the oxycodone like she did from the Vicodin. This should help with her cough as well. No evidence of pneumonia on chest x-ray. Patient and family counseled regarding signs and symptoms for which I believe and urgent re-evaluation would be necessary. Patient and family with good understanding of and agreement to plan and is comfortable going home at this time This document was made in part using voice recognition software. While efforts are made to proofread this document, sound alike and grammatical errors may occur. Departure - Departure Disposition: 01 Home, Self Care Clinical Impression: Rhinovirus, Dehydration, Hyponatremia, Hypochloremia Pubic ramus fracture Qualifiers: Encounter type: initial encounter Fracture type: closed Laterality: right Qualified Code(s): S32.591A - Other specified fracture of right pubis, initial encounter for closed fracture Condition: Stable Instructions: ED Fx Pelvis, ED Viral Syndrome Follow-Up: your,doctor this week [Other] Prescriptions: oxyCODONE [Roxicodone] 2.5 mg PO Q6H PRN #10 tablet MDD 6 PRN Reason: pain Comments: Your chest x-ray does not show any signs of pneumonia. You were given IV fluids today. The oxycodone seem to work better for your pain, therefore this was sent to the pharmacy for you ([facility] in [place]). Please return if you worsen. As we discussed you do have a pubic ramus fracture, this will heal on its own but will make it painful to walk for several weeks, would recommend using a walker at home whenever possible. I am prescribing a short course of narcotic pain medication for you. These are potentially dangerous and addictive medications that should be used carefully. These medications may constipate you. Take an [id number] stool softener (docusate) twice daily with plenty of water while taking these medications. If you go 24 hours without a bowel movement, take [id number] miralax, per package instructions. Do not drink or drive while taking these medications. If you received narcotic or sedating medications while in the emergency department, do not drive for 24 hours. Store this medication in a safe, secure place and out of reach of children. It is a violation of federal law to give or sell this medication to another person or to use in a manner other than prescribed. The ED will not refill narcotic prescriptions, including prescriptions lost or stolen. To dispose of unwanted medications: 1. [facility] [address] in [place] has a medication drop box. They accept prescription medications (in pill form) Saturday through Saturday 9:00 a.m. to 5:00 p.m. 2. The [facility] [employer] accepts prescription medications (in pill form only) for disposal year round. Call for more information. 3. Contact the [facility] for the next [facility] sponsored prescription drug collection event. , [phone], or [phone]; Forms: PCP List Discharge Date/Time: 02/02/24 15:55
[2024-02-02 13:54] LABS: RBC MORPHOLOGY (MULTIPLE) 2+ ANISOCYTOSIS (NORMAL)
[2024-02-02] MEDS: oxyCODONE 5 MG TABLET PO STA (14:27)
[2024-02-02] MEDS: SODIUM CHLORIDE 0.9% 1,000 ML IV STA (14:28)
--- NOTE | 2024-02-02 14:31 | XRAY Report ---
PROCEDURE: Chest 1V INDICATIONS: cough TECHNIQUE: One view of the chest was acquired. COMPARISON: 01/29/2024. FINDINGS: Surgical changes and devices: Right chest wall Port-A-Cath tip is in SVC. Left chest wall pacemaker leads are in the region of right atrium and right ventricle. Lungs and pleura: No pleural effusions or pneumothorax. Lungs are clear. Mediastinum: Mediastinal contours appear normal. Heart size is normal. Bones and chest wall: No suspicious bony lesions. Overlying soft tissues appear unremarkable. IMPRESSION: No acute cardiopulmonary process. No significant changes from previous study. Reviewed by: Eliseo Barclay MD on 02/02/2024 2:30 PM PDT Approved by: Eliseo Barclay MD on 02/02/2024 2:30 PM PDT Station ID: [id number]
[2024-02-02 16:08] VITALS: BP 109/68; O2SAT 98
== END 2024-02-02 15:55 | disposition home or self-care (01) ==
LOC: ED 11:53
DX: B34.8 Other viral infections of unspecified site (principal); E86.0 Dehydration; E87.1 Hypo-osmolality and hyponatremia; S32.591A Other specified fracture of right pubis, initial encounter for closed fracture; Z95.0 Presence of cardiac pacemaker; Z79.01 Long term (current) use of anticoagulants; I10 Essential (primary) hypertension; J44.9 Chronic obstructive pulmonary disease, unspecified; F32.A Depression, unspecified; F41.9 Anxiety disorder, unspecified
CPT/HCPCS: 36415; 71045; 80053; 83690; 85025; 96360; 99284; A9270

== ENCOUNTER 2024-02-10 08:00 | Outpatient (CLI) | payer MEDICARE ==
[2024-02-10 15:07] LABS: BILIRUBIN,URINE NEGATIVE (NEGATIVE); GLUCOSE, URINE (UA) NEGATIVE (NEGATIVE); KETONES,URINE (UA) NEGATIVE (NEGATIVE); LEUKOCYTE ESTERASE, URINE NEGATIVE (NEGATIVE); NITRITE,URINE NEGATIVE (NEGATIVE); OCCULT BLOOD,URINE NEGATIVE (NEGATIVE); PH,URINE 5.5 PH (5.0-7.5); PROTEIN,URINE NEGATIVE (NEGATIVE); UROBILINOGEN,URINE 1 (NORMAL) E.U./dL (NORMAL)
[2024-02-10 15:23] LABS: BACTERIA,URINE Many /HPF (None Seen); CLARITY,URINE CLOUDY (CLEAR); CRYSTALS,URINE 26-50 Uric Acid /LPF; RBC,URINE None Seen /HPF (0-5); SQUAMOUS EPITHELIAL CELL,UR MANY Squamous (<= Few)
== END 2024-02-10 23:59 | disposition home or self-care (01) ==
LOC: LAB.N 08:00
PROVIDERS: ATTEND Nurse Practitioner Adult Health
DX: R41.0 Disorientation, unspecified (principal); R32 Unspecified urinary incontinence; R82.998 Other abnormal findings in urine
CPT/HCPCS: 81001; 87086

== ENCOUNTER 2024-02-10 08:00 | Outpatient (CLI) | payer MEDICARE | END 2024-02-10 23:59 | disposition home or self-care (01) | LOC: PC 08:00 | PROVIDERS: ATTEND Nurse Practitioner Adult Health | DX: Z51.5 Encounter for palliative care (principal); C34.12 Malignant neoplasm of upper lobe, left bronchus or lung; I95.9 Hypotension, unspecified; R05.1 Acute cough; R82.998 Other abnormal findings in urine; S30.0XXD Contusion of lower back and pelvis, subsequent encounter; M62.81 Muscle weakness (generalized); B37.0 Candidal stomatitis; Z71.89 Other specified counseling; R30.0 Dysuria; R41.0 Disorientation, unspecified; Z92.29 Personal history of other drug therapy; Z92.3 Personal history of irradiation; Z91.81 History of falling | CPT/HCPCS: 99350 ==

== ENCOUNTER 2024-02-12 13:56 | Outpatient (CLI) | payer MEDICARE ==
[2024-02-12 14:36] LABS: BASOPHILS % (AUTO) 0.2 %; EOSINOPHILS # (AUTO) 0.1 10^3/uL (0.0-0.7); EOSINOPHILS % (AUTO) 0.3 %; HCT - HEMATOCRIT 28.8 % (37.0-47.0); HGB - HEMOGLOBIN 9.7 g/dL (12.0-16.0); LYMPHOCYTES # (AUTO) 0.8 10^3/uL (1.5-3.5); MEAN CORPUSCULAR HEMOGLOBIN 30.6 pg (27.0-31.0); MEAN CORPUSCULAR HGB CONC 33.7 g/dL (32.0-36.0); MEAN CORPUSCULAR VOLUME 90.9 fL (81.0-99.0); MEAN PLATELET VOLUME 10.8 fL (7.9-10.8); MONOCYTES # (AUTO) 1.2 10^3/uL (0.0-1.0); MONOCYTES % (AUTO) 6.2 %; NEUTROPHILS # (AUTO) 16.2 10^3/uL (1.5-6.6); NEUTROPHILS % (AUTO) 86.3 %; PLT - PLATELET COUNT 639 10^3/uL (130-450); RED BLOOD COUNT 3.17 10^6/uL (4.20-5.40); RED CELL DISTRIBUTION WIDTH 15.1 % (12.0-15.0); WHITE BLOOD COUNT 18.8 x10^3/uL (4.8-10.8)
[2024-02-12 14:38] LABS: SLIDE REVIEW? Indicated
[2024-02-12 14:55] LABS: RBC MORPHOLOGY (MULTIPLE) 2+ ANISOCYTOSIS (NORMAL)
[2024-02-12 14:56] LABS: ALBUMIN 2.6 g/dL (3.2-5.5); ALBUMIN/GLOBULIN RATIO 0.9 (1.0-2.2); BILIRUBIN,TOTAL 1.9 mg/dL (0.2-1.0); CALCIUM 7.7 mg/dL (8.5-10.3); CREATININE 1.9 mg/dL (0.6-1.3); POTASSIUM 3.2 mmol/L (3.5-4.5); TOTAL PROTEIN 5.6 g/dL (6.4-8.9)
--- NOTE | 2024-02-12 17:39 | XRAY Report ---
PROCEDURE: Chest 2V INDICATIONS: COUGH TECHNIQUE: 2 views of the chest were acquired. COMPARISON: 02/02/2024 FINDINGS: Surgical changes and devices: Right chest wall Port-A-Cath. Left chest wall pacemaker. Lungs and pleura: Small right pleural effusion with adjacent atelectasis versus consolidation is new compared to prior. Left lung is clear. Mediastinum: Mediastinal contours appear normal. Heart size is normal. Bones and chest wall: No suspicious bony lesions. Overlying soft tissues appear unremarkable. IMPRESSION: Small right pleural effusion with adjacent atelectasis versus consolidation. Recommend follow-up radi ographs to ensure resolution. Reviewed by: Isael Burt MD on 02/12/2024 5:38 PM PDT Approved by: Isael Burt MD on 02/12/2024 5:38 PM PDT Station ID: [id number]
== END 2024-02-12 13:57 | disposition home or self-care (01) ==
LOC: LAB 13:56
PROVIDERS: ATTEND Nurse Practitioner Adult Health
DX: C34.12 Malignant neoplasm of upper lobe, left bronchus or lung (principal); I10 Essential (primary) hypertension; R05.1 Acute cough
CPT/HCPCS: 36415; 80053; 85025

== ENCOUNTER 2024-02-12 14:51 | Inpatient (IN) | payer MEDICARE ==
--- NOTE | 2024-02-12 17:12 | ED Physician Documentation ---
History of Present Illness - Stated complaint Stated Complaint: GEN WEAKNESS - Chief complaint Chief Complaint: General - History obtained from History obtained from: Patient - Additonal information Additional information: Patient is an 83-year-old female brought in by her daughter after patient has been seen in the emergency department multiple times within the last 2 weeks. On 01/28 patient sustained a fall and had positive rhinovirus test and sustained fracture to pubic rami. Patient has been ambulating at home with a cane but has slowly become more and more weak and fatigued. Daughter notes she has been eating significantly less and unable to return back to regular activity level. She notes no other recent falls. Patient does live at home in a house by herself. She has had a persistent cough and continues to have rhinovirus symptoms despite being diagnosed over 2 weeks ago. Daughter is concerned for dehydration as if she has been too weak to eat or drink at home. Patient was di agnosed with a UTI and started on antibiotics on Saturday but symptoms seem to persist. Patient has at home nursing care but continues to deteriorate at home. 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 Cardiovascular: Pacemaker - Present Medications Home Medications: Ambulatory Orders Medication Instructions Recorded Confirmed Albuterol Sulf [Ventolin Hfa 2 puffs INH Q6H PRN 08/09/21 02/13/24 Inhaler] Fluticasone 110 Mcg [Flovent] 1 puffs INH BID 10/24/21 02/13/24 Apixaban [Eliquis] 2.5 mg PO BID #60 tablet 10/25/21 02/13/24 Alendronate [Fosamax] 70 mg PO Q7D 11/06/21 02/13/24 Amiodarone [Pacerone] 200 mg PO DAILY 11/06/21 02/13/24 Metoprolol Tartrate [Lopressor] 100 mg PO BID 11/06/21 02/13/24 hydroCHLOROthiazide [Hydrodiuril] 25 mg PO DAILY 11/06/21 02/13/24 Escitalopram [Lexapro] 10 mg PO DAILY 11/07/22 02/13/24 Clotrimazole/Betamethasone Crm 2 gm TOP BID #45 gm 01/29/24 02/13/24 [Lotrisone Cream] Loperamide [Imodium] 2 mg PO TID PRN #15 cap 01/29/24 02/13/24 Nystatin [Mycostatin] 1 misc PO QID 02/13/24 02/13/24 Sulfamethox/Trimeth 800/160 1 tab PO BID 02/13/24 02/13/24 [Bactrim Ds] - Allergies Allergies/Adverse Reactions: Allergies Allergy/AdvReac Type Severity Reaction Status Date / Time No Known Drug Allergies Allergy Verified 02/12/24 17:07 - Social History Does the pt smoke?: No Smoking Status: Never smoker Does the pt drink ETOH?: No Does the pt have substance abuse?: No - Immunizations Immunizations are current?: Yes PD ED PE NORMAL - General General: Alert and oriented X 3 - HEENT HEENT: Atraumatic - Neck Neck: Supple, no meningeal sign - Cardiac Cardiac: RRR, No gallop - Respiratory Respiratory: No respiratory distress, Clear bilaterally - Abdomen Abdomen: Normal bowel sounds - Extremities Extremities: No deformity - Neuro Neuro: Alert and oriented X 3 Eye Opening: Spontaneous Motor: Obeys Commands Verbal: Oriented GCS Score: 15 - Psych Psych: Normal mood Results - Vitals Vitals: Oxygen O2 Source Room air - Labs Labs: Microbiology 02/12/24 19:34 Blood Culture - Preliminary Blood NO GROWTH AFTER 1 DAY 02/12/24 18:46 Blood Culture - Preliminary Blood NO GROWTH AFTER 1 DAY Laboratory Tests 02/12/24 02/12/24 02/12/24 14:16 14:16 18:00 Magnesium 1.5 L Procalcitonin Immunoas 0.46 Nasal Adenovirus (PCR) NOT DETECTED Nasal B. parapertussis DNA (PCR) NOT DETECTED Nasal Coronavir 229E PCR NOT DETECTED Nasal Coronavir HKU1 PCR NOT DETECTED Nasal Coronavir NL63 PCR NOT DETECTED Nasal Coronavir OC43 PCR NOT DETECTED Nasal Enterovir/Rhinovir PCR NOT DETECTED Nasal Influenza B PCR NOT DETECTED Nasal Influenza A PCR NOT DETECTED Nasal Parainfluen 1 PCR NOT DETECTED Nasal Parainfluen 2 PCR NOT DETECTED Nasal Parainfluen 3 PCR NOT DETECTED Nasal Parainfluen 4 PCR NOT DETECTED Nasal RSV (PCR) NOT DETECTED Nasal B.pertussis DNA PCR NOT DETECTED Nasal C.pneumoniae (PCR) NOT DETECTED Wilbur Human Metapneumo PCR NOT DETECTED Nasal M.pneumoniae (PCR) NOT DETECTED Nasal SARS-CoV-2 (PCR) NOT DETECTED PD Medical Decision Making - ED course Complexity details: reviewed old records, reviewed results ED course: Patient is an 83-year-old female presenting to the emergency department for the third time in 2 weeks. Patient has been progressively weaker and having persistent cough. Patient was seen here on the diagnosed with a pubic rami fracture and discharged home. Patient notably at the time also had rhinovirus. Earlier this week she was diagnosed by nurse practitioner with a UTI and was started on antibiotics but does not seem to be improving according to patient's daughter. Patient continues have decreased eating increased weakness and persistent cough. Vitals on arrival showed soft blood pressure 92/55 and saturating oxygen at 87%. Patient does not wear oxygen at baseline. Labs obtained here in the emergency department show slight leukocytosis at 13 with mild hypokalemia at 3.2 and notable hyponatremia at 123. Patient has new ANNY with creatinine increased at 1.9 with baseline closer to 1.6. Patient started on fluids here in the emergency department and chest x-ray shows new right-sided pneumonia and consolidation. Patient's blood cultures obtained and started on antibiotics here in the emergency department with ceftriaxone and doxycycline to cover for pneumonia. Discussed with daughter she is agreeable for patient to be admitted and patient is agreeable to staying overnight. Discussed case with hospitalist who will admit patient to observation status. Patient appears in no acute distress at this time. Repeat vitals shows improved oxygenation as patient was started on 2L NC. Hospitalist updated and patient admitted to observation unit. Departure - Departure Disposition: ED Place in Observation Clinical Impression: Hypokalemia, Pneumonia, Hyponatremia Condition: Fair Discharge Date/Time: 02/12/24 21:12
[2024-02-12] MEDS: ACETAMINOPHEN 325 MG TABLET PO STA (18:59)
[2024-02-12 19:05] LABS: B. PARAPERTUSSIS- RESP PCR PAN NOT DETECTED; B. PERTUSSIS- RESP PCR PANEL NOT DETECTED; C. PNEUMONIAE- RESP PCR PANEL NOT DETECTED; CORONAVIRUS 229E-RESP PCR NOT DETECTED; CORONAVIRUS HKU1-RESP PCR NOT DETECTED; CORONAVIRUS NL63-RESP PCR NOT DETECTED; CORONAVIRUS OC43-RESP PCR NOT DETECTED; HUMAN METAPNEUMOVIRUS NOT DETECTED; INFLUENZA A- RESP PCR PANEL NOT DETECTED; INFLUENZA B - RESP PCR PANEL NOT DETECTED; M. PNEUMONIAE- RESP PCR PANEL NOT DETECTED; PARAINFLUENZA VIRUS 1 NOT DETECTED; PARAINFLUENZA VIRUS 2 NOT DETECTED; PARAINFLUENZA VIRUS 3 NOT DETECTED; PARAINFLUENZA VIRUS 4 NOT DETECTED; RHINOVIRUS/ENTEROVIRUS NOT DETECTED; RSV- RESP PCR PANEL NOT DETECTED; SARS-CoV-2 -RESP PCR PANEL NOT DETECTED
[2024-02-12] MEDS: SODIUM CHLORIDE 0.9% 1,000 ML IV STA (19:36)
[2024-02-12] MEDS: cefTRIAXone 1 GM in SODIUM CHLORIDE 0.9% MINIBAG 100 ML IV STA (19:40)
[2024-02-12] MEDS ORDERED: SODIUM CHLORIDE FLUSH 0.9% 10 ML SYRINGE IVP PRN (19:54)
[2024-02-12] MEDS ORDERED: ONDANSETRON 4 MG/2 ML VIAL IVP PRN (20:01)
[2024-02-12] MEDS ORDERED: PROCHLORPERAZINE 10 MG/2 ML VIAL IVP PRN (20:01)
[2024-02-12] MEDS ORDERED: oxyCODONE 5 MG TABLET PO PRN (20:10)
[2024-02-12] MEDS: DOXYCYCLINE INJ 100 MG in SODIUM CHLORIDE 0.9% MINIBAG 100 ML IV STA (20:17)
--- NOTE | 2024-02-12 20:20 | HISTORY & PHYSICAL EXAMINATION ---
Chief Complaint - Chief Complaint Chief Complaint: SOB History of Present Illness - Admitted From Admitted From:: ED - History Obtained From Records Reviewed: EMR History obtained from: ED staff, patient, and EMR Exam Limitations: telemedicine - History of Present Illness HPI Comment/Other: 83YOF c lung cancer and associated pneumonitis, afib on Eliquis and HTN and COPD who had a fall a week with pubic fracture and was sent home with oral opioids and developed a cough approx 4-5 days ago who presents to the ED now with SOB. Patient reports being seen and started on abx cephalexin but did not get better. She reports associated progressive weakness and loss of appetite. She denies constipation. no n/v/d but positive loose stool. No fever. No URI. No chest pain. No palpitation. No dysuria. No rash. No swelling. review of EMR noted that patient is currently off chemo for lung cancer 2/2 pneumonitis. Here in the ED, patient is noted for leukocytosis along with CXR on ED prelim read citing RLL infiltrate concerning for RLL PNA. 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 She lost her to lung CA and has two daughters. 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 She is independent with all ADLs. Meds/Allgy - Home Medications Home Medications: Ambulatory Orders Medication Instructions Recorded Confirmed Albuterol Sulf [Ventolin Hfa 2 puffs INH Q6H PRN 08/09/21 10/16/23 Inhaler] Fluticasone 110 Mcg [Flovent] 1 puffs INH BID 10/24/21 10/16/23 Apixaban [Eliquis] 2.5 mg PO BID #60 tablet 10/25/21 10/16/23 Alendronate [Fosamax] 70 mg PO Q7D 11/06/21 10/16/23 Amiodarone [Pacerone] 200 mg PO DAILY 11/06/21 10/16/23 Metoprolol Tartrate [Lopressor] 100 mg PO BID 11/06/21 10/16/23 hydroCHLOROthiazide [Hydrodiuril] 25 mg PO DAILY 11/06/21 10/16/23 Cholecalciferol (Vitamin D3) 2,000 mcg PO DAILY 09/12/22 10/16/23 [Vitamin D3] Escitalopram [Lexapro] 10 mg PO DAILY 11/07/22 10/16/23 cephALEXin [Keflex] 500 mg PO Q6H #28 cap 05/05/23 10/16/23 Benzonatate [Tessalon] 100 mg PO TID PRN #20 cap 01/29/24 Clotrimazole/Betamethasone Crm 2 gm TOP BID #45 gm 01/29/24 [Lotrisone Cream] HYDROcod/ACETAM 5/325 [Brandon 5/325] 1 ea PO Q6H PRN #18 tablet 01/29/24 Loperamide [Imodium] 2 mg PO TID PRN #15 cap 01/29/24 oxyCODONE [Roxicodone] 2.5 mg PO Q6H PRN #10 tablet MDD 6 02/02/24 - Allergies Allergies/Adverse Reactions: Allergies Allergy/AdvReac Type Severity Reaction Status Date / Time No Known Drug Allergies Allergy Verified 02/12/24 17:07 Review of Systems - Other Findings Other Findings: negative unless mentioned differently. Exam - Vital Signs Reviewed Vital Signs: Yes Vital Signs: Vital Signs x48h Temp Pulse Resp BP Pulse Ox 02/12/24 20:04 58 L 20 92/55 L 87 L 02/12/24 17:42 64 19 97/59 L 92 02/12/24 14:55 36.6 C 58 L 18 113/66 92 - Physical Exam General Appearance: positive: No acute distress, Alert. negative: Lethargic Eyes Bilateral: positive: Normal inspection ENT: positive: ENT inspection nml Neck: positive: Nml inspection Respiratory: positive: Breath sounds nml (per ED staff examination) Cardiovascular: positive: Regular rate & rhythm (per ED staff examination) Abdomen: negative: Abnml bowel sounds (per ED staff examination) Skin: positive: Pallor Extremities: positive: Nml appearance Neurologic/Psychiatric: positive: Oriented x3, CN's nml (2-12) Conclusion/Plan - Problem List (1) Pneumonia Conclusion/Plan: noted SOB 2/2 pneumonia. ddx: worsening pneumonitis from underlying lung cancer. will empiric abx. breathing treatment. o2 support as needed. followup cultures for insight into abx management. PT eval. case management for dispo planning. consider reaching out oncology for input regarding pneumonitis. (2) Acute renal failure (ARF) Conclusion/Plan: acute renal failure likely stems from poor po intake + HCTZ. will hold HCTZ. judicious iv fluid support. avoid nephrotoxins. monitor renal function with repeat BMP. cardiac diet. starch treating assistant consult. (3) Atrial fibrillation Conclusion/Plan: rate controlled. continue metoprolol and amiodarone. anticoagulated on Eliquis. will continue DOAC (4) Hypertension Conclusion/Plan: managed. continue metoprolol. hold HCTZ 2/2 hyponatremia and ARF. monitor BP with vital checks. consider prn hydralazine if bp elevated. (5) Hyponatremia Conclusion/Plan: likely 2/2 poor po intake and HCTZ. judicious NS iv fluid. monitor Na level q 6hr. hold HCTZ. tele monitoring - Lab Results Lab results reviewed: Yes - Diagnostic Imaging Results Diagnostic Imaging Results: positive: Prelim report reviewed (per ED staff discussion) Core Measures - Anticipated LOS I expect patient to be DC'd or transferred within 96 hours.: No - Issues Hospital Issues and Management Plan: The patient consented to receive this telemedicine service, which I performed via live two-way audiovisual equipment. The patient is at ([facility]) and I am physically in [facility]. A nurse assisted me in the visit. Full code Daughter SCDs, Katia Inpatient Estrella Alcantar DO Internal Medicine [facility] Tele Manipulator Operator - DVT/VTE - Prophylaxis VTE/DVT Device ordered at admit?: Yes Telemedicine Consult Details - Provider Location & Consult Time Telemedicine consultation conducted via videoconferencing?: Yes List names and roles of persons who participated in consult:: ED staff, RN, and patient Telemedicine provider location:: [facility] Time Telemedicine consult began:: 19:44 Time Telemedicine consult completed:: 20:39
[2024-02-12] MEDS: POTASSIUM CHLOR 10 MEQ/100 ML 10 MEQ/100 ML BAG IV ONE (21:14)
[2024-02-12] MEDS: SODIUM CHLORIDE 0.9% 1,000 ML IV SCH (21:14)
[2024-02-12] MEDS: METOPROLOL TARTRATE 50 MG TABLET PO SCH (21:25)
[2024-02-12] MEDS: APIXABAN 2.5 MG TABLET PO SCH (21:26)
[2024-02-13] MEDS: SODIUM CHLORIDE FLUSH 0.9% 10 ML SYRINGE IVP SCH (01:00)
[2024-02-13] MEDS: HYDROcod/ACETAM 5/325 MG TABLET PO PRN (01:01)
[2024-02-13 08:33] LABS: BASOPHILS % (AUTO) 0.2 %; EOSINOPHILS # (AUTO) 0.1 10^3/uL (0.0-0.7); EOSINOPHILS % (AUTO) 0.4 %; HCT - HEMATOCRIT 26.3 % (37.0-47.0); HGB - HEMOGLOBIN 8.7 g/dL (12.0-16.0); LYMPHOCYTES # (AUTO) 0.9 10^3/uL (1.5-3.5); LYMPHOCYTES % (AUTO) 5.6 %; MEAN CORPUSCULAR HEMOGLOBIN 30.3 pg (27.0-31.0); MEAN CORPUSCULAR HGB CONC 33.1 g/dL (32.0-36.0); MEAN CORPUSCULAR VOLUME 91.6 fL (81.0-99.0); MEAN PLATELET VOLUME 10.7 fL (7.9-10.8); NEUTROPHILS # (AUTO) 13.8 10^3/uL (1.5-6.6); NEUTROPHILS % (AUTO) 85.4 %; PLT - PLATELET COUNT 566 10^3/uL (130-450); RED BLOOD COUNT 2.87 10^6/uL (4.20-5.40); RED CELL DISTRIBUTION WIDTH 15.7 % (12.0-15.0); WHITE BLOOD COUNT 16.1 x10^3/uL (4.8-10.8)
[2024-02-13] MEDS: AMIODARONE 200 MG TABLET PO SCH (08:33)
[2024-02-13] MEDS: cefTRIAXone 2 GM in SODIUM CHLORIDE 0.9% MINIBAG 100 ML IV SCH (08:34)
[2024-02-13] MEDS: DOXYCYCLINE INJ 100 MG in SODIUM CHLORIDE 0.9% MINIBAG 100 ML IV SCH (08:34)
[2024-02-13] MEDS: ESCITALOPRAM 10 MG TABLET PO SCH (08:40)
[2024-02-13 08:43] LABS: ALBUMIN 2.4 g/dL (3.2-5.5); CALCIUM 7.1 mg/dL (8.5-10.3); CREATININE 2.1 mg/dL (0.6-1.3); MAGNESIUM 1.4 mg/dL (1.7-2.3); PHOSPHORUS 3.6 mg/dL (2.5-5.0); POTASSIUM 3.3 mmol/L (3.5-4.5)
[2024-02-13] MEDS: MULTIVITAMIN W/MINERALS TABLET PO SCH (08:44)
[2024-02-13] MEDS: IPRATROPIUM/ALBUTEROL 3 ML NEB INH SCH (10:03)
[2024-02-13] MEDS: BUDESONIDE 0.5 MG/2 ML NEB INH SCH (10:03)
[2024-02-13] MEDS ORDERED: SALIVA STIMULANT SPRAY 44.3 ML BOTTLE PO PRN (10:39)
[2024-02-13] MEDS: MAGIC MOUTHWASH (NYSTATIN) 120 ML BOTTLE PO SCH (12:02)
[2024-02-13] MEDS: MAGNESIUM SULFATE 2 GRAM 2 GM/50 ML BAG IV ONE (12:03)
[2024-02-13] MEDS: POTASSIUM CHLORIDE 20 MEQ TABLET PO ONE (12:09)
--- NOTE | 2024-02-13 13:43 | PHARMACY PROGRESS NOTE ---
- Best Possible Medication History Admit Date and Time: 02/12/241953 Processed by: Pharmacy Medication History completed: Yes Patient Interview: Pt unable to participate Secondary Source(s): Physician records (PT COULD NOT PARTICIPATE IN INTERVIEW, INSURANCE RECORDS AND PCP RECORDS SENT), Pharmacy records, Insurance records As the person ultimately responsible for medication therapy, providers are able to order a medication from an existing home medication list in [facility] via the "Reconcile Routine" prior to Confirmation of that medication by behavior support specialist. Such practice is discouraged except when the physician, in their clinical judgment, deems that a medical need exists for a medication without regard to previous use.
--- NOTE | 2024-02-13 15:51 | PROVIDER PROGRESS NOTE ---
Subjective - Prog Note Date Prog Note Date: 02/13/24 Prog Note Time: 15:50 - Subjective Pt reports feeling: No change Subjective: The patient is an 83-year-old female with adenocarcinoma of the lung. She has previously been treated with Keytruda. She is undergoing radiation. In the past she has had pneumonitis related to her radiation and Keytruda however this is not an active issue at this time. The patient presented to the emergency room with shortness of breath. She was found to have underlying pneumonia. The patient also had a fall at home a couple of weeks ago and has a pubic ramus fracture. She was admitted to the hospital and started on IV vancomycin and doxycycline. When I saw the patient this morning she states that she is not feeling any better at all. She still feels short of breath and she still has a cough. She denies fever or shaking chills this morning. No chest pain. She has not had any heart palpitations. No nausea vomiting or diarrhea. However she says that her appetite is poor. She has no urinary complaints Current Medications - Current Medications Current Medications: Active Medications Generic Name Dose Route Start Last Admin Trade Name Freq PRN Reason Stop Dose Admin Hydrocodone Bitart/Acetaminophen 1 tab 02/12/24 20:10 02/13/24 01:01 Hydrocod/Acetam 5/325 Mg Tablet PO 1 tab Q6H PRN Administration PAIN 5-7 Albuterol/Ipratropium 3 ml 02/13/24 09:00 02/13/24 12:41 Ipratropium/Albuterol 3 Ml Neb INH 3 ml Q6HR HERI Administration Amiodarone HCl 200 mg 02/13/24 09:00 02/13/24 08:33 Amiodarone 200 Mg Tablet PO 200 mg DAILY HERI Administration Apixaban 2.5 mg 02/12/24 21:00 02/13/24 08:33 Apixaban 2.5 Mg Tablet PO 2.5 mg BID HERI Administration Benzonatate 100 mg 02/12/24 20:10 Benzonatate 100 Mg Capsule PO TID PRN Cough Budesonide 0.5 mg 02/13/24 08:00 02/13/24 10:03 Budesonide 0.5 Mg/2 Ml Neb INH Not Given RTBID HERI Escitalopram Oxalate 10 mg 02/13/24 09:00 02/13/24 08:40 Escitalopram 10 Mg Tablet PO 10 mg DAILY HERI Administration Sodium Chloride 1,000 mls @ 75 mls/hr 02/12/24 20:00 02/13/24 12:01 Normal Saline 0.9% IV 75 mls/hr .[id number] HERI Administration Ceftriaxone Sodium 2 gm/ 100 mls @ 200 mls/hr 02/13/24 09:00 02/13/24 12:32 Sodium Chloride IV Infused DAILY HERI Infusion Doxycycline Hyclate 100 mg/ 100 mls @ 100 mls/hr 02/13/24 09:00 02/13/24 12:32 Sodium Chloride IV Infused BID HERI Infusion Metoprolol Tartrate 100 mg 02/12/24 21:00 02/13/24 08:32 Metoprolol Tartrate 50 Mg Tablet PO 100 mg BID HERI Administration Multi-Ingredient Mouthwash/Gargle 30 ml 02/13/24 11:00 02/13/24 12:02 Magic Mouthwash (Nystatin) 120 Ml Bottle PO 30 ml Q6H HERI Administration Multivitamins/Minerals 1 tab 02/13/24 09:00 02/13/24 08:44 Multivitamin W/Minerals Tablet PO 1 tab DAILYWM HERI Administration Ondansetron HCl 4 mg 02/12/24 20:01 Ondansetron 4 Mg/2 Ml Vial IVP Q6HR PRN Nausea / Vomiting Oxycodone HCl 2.5 mg 02/12/24 20:10 Oxycodone 5 Mg Tablet PO Q6H PRN PAIN >8 Prochlorperazine Edisylate 10 mg 02/12/24 20:01 Prochlorperazine 10 Mg/2 Ml Vial IVP Q6HR PRN Nausea / Vomiting Saliva Substitute 2 sprays 02/13/24 10:39 Saliva Stimulant [place] 44.3 Ml Bottle PO Q4H PRN Mouth Sore Pain Sodium Chloride 10 ml 02/12/24 19:54 Sodium Chloride Flush 0.9% 10 Ml Syringe IVP PRN PRN NEEDED PER PROVIDER ORDERS Sodium Chloride 10 ml 02/13/24 01:00 02/13/24 08:34 Sodium Chloride Flush 0.9% 10 Ml Syringe IVP 10 ml 0100,0900,1700 HERI Administration Albuterol Sulf [Ventolin Hfa Inhaler] 2 puffs INH Q6H PRN 02/09/22 Fluticasone 110 Mcg [Flovent] 1 puffs INH BID 10/24/21 Alendronate [Fosamax] 70 mg PO Q7D 11/06/21 Amiodarone [Pacerone] 200 mg PO DAILY 11/06/21 Metoprolol Tartrate [Lopressor] 100 mg PO BID 11/06/21 hydroCHLOROthiazide [Hydrodiuril] 25 mg PO DAILY 11/06/21 Escitalopram [Lexapro] 10 mg PO DAILY 11/07/22 Nystatin [Mycostatin] 1 misc PO QID 02/13/24 Sulfamethox/Trimeth 800/160 [Bactrim Ds] 1 tab PO BID 02/13/24 Objective - Vital Signs/Intake & Output Vital Signs: Vital Signs x48h Temp Pulse Pulse Resp BP BP Pulse Ox 02/13/24 13:00 36.5 C 16 103/46 L 94 02/13/24 12:46 79 17 02/13/24 11:37 02/13/24 08:32 110/47 L 02/13/24 08:00 36.8 C 68 16 110/47 L 93 O2 Flow Rate 02/13/24 13:00 2 02/13/24 12:46 2 02/13/24 11:37 2 02/13/24 08:32 02/13/24 08:00 2 Intake & Output: Intake & Output 02/10/24 02/11/24 02/12/24 02/13/24 23:59 23:59 23:59 23:59 Intake Total 125 2770 Output Total 300 Balance 125 2470 - Objective General Appearance: positive: Other (She is in no acute distress but looks as if she feels poorly. She is receiving oxygen via nasal cannula) Eyes Bilateral: positive: Normal inspection ENT: positive: ENT inspection nml Neck: positive: Nml inspection Respiratory: positive: Chest non-tender, Other (The patient has some rhonchi in the right lower base. No wheezing noted) Cardiovascular: positive: Regular rate & rhythm, No murmur, No gallop. negative: Friction rub Abdomen: positive: Non-tender, No organomegaly, Nml bowel sounds. negative: Guarding, Rebound Skin: positive: Color nml, No rash, Warm, Dry Extremities: positive: Non-tender, Full ROM Neurologic/Psychiatric: positive: Oriented x3, CN's nml (2-12) - Lab Results Fish Bones: 02/13/24 08:25 02/13/24 08:25 Other Labs: Lab Results x24hrs 02/13/24 02/13/24 02/12/24 Range/Units 08:25 08:25 18:00 WBC 16.1 H (4.8-10.8) x10^3/uL RBC 2.87 L (4.20-5.40) 10^6/uL Hgb 8.7 L (12.0-16.0) g/dL Hct 26.3 L (37.0-47.0) % MCV 91.6 (81.0-99.0) fL MCH 30.3 (27.0-31.0) pg MCHC 33.1 (32.0-36.0) g/dL RDW 15.7 H (12.0-15.0) % Plt Count 566 H (130-450) 10^3/uL MPV 10.7 (7.9-10.8) fL Neut # (Auto) 13.8 H (1.5-6.6) 10^3/uL Lymph # (Auto) 0.9 L (1.5-3.5) 10^3/uL [place] # (Auto) 1.0 (0.0-1.0) 10^3/uL Eos # (Auto) 0.1 (0.0-0.7) 10^3/uL Baso # (Auto) 0.0 (0.0-0.1) 10^3/uL Absolute Nucleated RBC 0.00 x10^3/uL Nucleated RBC % 0.0 /100WBC Sodium 124 L (135-145) mmol/L Potassium 3.3 L (3.5-4.5) mmol/L Chloride 91 L (101-111) mmol/L Carbon Dioxide 25 (21-32) mmol/L Anion Gap 8.0 (6-13) BUN 33 H (6-20) mg/dL Creatinine 2.1 H (0.6-1.3) mg/dL Estimated GFR (MDRD) 22 L (>89) Glucose 102 (74-104) mg/dL Calcium 7.1 L (8.5-10.3) mg/dL Phosphorus 3.6 (2.5-5.0) mg/dL Magnesium 1.4 L (1.7-2.3) mg/dL Albumin 2.4 L (3.2-5.5) g/dL Procalcitonin Immunoas (<0.5) ng/mL Nasal Adenovirus (PCR) NOT DETECTED Nasal B. parapertussis DNA (PCR) NOT DETECTED Nasal Coronavir 229E PCR NOT DETECTED Nasal Coronavir HKU1 PCR NOT DETECTED Nasal Coronavir NL63 PCR NOT DETECTED Nasal Coronavir OC43 PCR NOT DETECTED Nasal Enterovir/Rhinovir PCR NOT DETECTED Nasal Influenza B PCR NOT DETECTED Nasal Influenza A PCR NOT DETECTED Nasal Parainfluen 1 PCR NOT DETECTED Nasal Parainfluen 2 PCR NOT DETECTED Nasal Parainfluen 3 PCR NOT DETECTED Nasal Parainfluen 4 PCR NOT DETECTED Nasal RSV (PCR) NOT DETECTED Nasal B.pertussis DNA PCR NOT DETECTED Nasal C.pneumoniae (PCR) NOT DETECTED [place] Human Metapneumo PCR NOT DETECTED Nasal M.pneumoniae (PCR) NOT DETECTED Nasal SARS-CoV-2 (PCR) NOT DETECTED 02/12/24 02/12/24 Range/Units 14:16 14:16 WBC (4.8-10.8) x10^3/uL RBC (4.20-5.40) 10^6/uL Hgb (12.0-16.0) g/dL Hct (37.0-47.0) % MCV (81.0-99.0) fL MCH (27.0-31.0) pg MCHC (32.0-36.0) g/dL RDW (12.0-15.0) % Plt Count (130-450) 10^3/uL MPV (7.9-10.8) fL Neut # (Auto) (1.5-6.6) 10^3/uL Lymph # (Auto) (1.5-3.5) 10^3/uL [place] # (Auto) (0.0-1.0) 10^3/uL Eos # (Auto) (0.0-0.7) 10^3/uL Baso # (Auto) (0.0-0.1) 10^3/uL Absolute Nucleated RBC x10^3/uL Nucleated RBC % /100WBC Sodium (135-145) mmol/L Potassium (3.5-4.5) mmol/L Chloride (101-111) mmol/L Carbon Dioxide (21-32) mmol/L Anion Gap (6-13) BUN (6-20) mg/dL Creatinine (0.6-1.3) mg/dL Estimated GFR (MDRD) (>89) Glucose (74-104) mg/dL Calcium (8.5-10.3) mg/dL Phosphorus (2.5-5.0) mg/dL Magnesium 1.5 L (1.7-2.3) mg/dL Albumin (3.2-5.5) g/dL Procalcitonin Immunoas 0.46 (<0.5) ng/mL Nasal Adenovirus (PCR) Nasal B. parapertussis DNA (PCR) Nasal Coronavir 229E PCR Nasal Coronavir HKU1 PCR Nasal Coronavir NL63 PCR Nasal Coronavir OC43 PCR Nasal Enterovir/Rhinovir PCR Nasal Influenza B PCR Nasal Influenza A PCR Nasal Parainfluen 1 PCR Nasal Parainfluen 2 PCR Nasal Parainfluen 3 PCR Nasal Parainfluen 4 PCR Nasal RSV (PCR) Nasal B.pertussis DNA PCR Nasal C.pneumoniae (PCR) [place] Human Metapneumo PCR Nasal M.pneumoniae (PCR) Nasal SARS-CoV-2 (PCR) ABX Reporting Has patient been on IV antibiotics over the past 48 hours?: No Assessment/Plan - Problem List (1) Acute hypoxic respiratory failure Impression: Secondary to right lower lobe pneumonia. Continue oxygen support and titrate to keep her oxygen saturations greater than 92% (2) Pneumonia Impression: I am going to stop IV ceftriaxone and continue doxycycline. Will broaden her coverage to IV zosyn today (3) Adenocarcinoma of lung Impression: Currently on no active treatment. She has received Keytruda in the past as well as radiation. Her disease has been stable for quite some time. There is no evidence of pneumonitis on imaging studies (4) Pubic ramus fracture Impression: Likely pahologic due to ground level fall. Will have physical therapy and Occupational Therapy evaluate the patient. Qualifiers: Encounter type: initial encounter Fracture type: closed Laterality: right Qualified Code(s): S32.591A - Other specified fracture of right pubis, initial encounter for closed fracture (5) Persistent atrial fibrillation Impression: Currently in a sinus rhythm and rate controlled. Continue amiodarone. She is on Eliquis for anticoagulation (6) Chronic renal failure, stage 3 (moderate) Impression: The patient's creatinine is above its baseline but not quite meeting the criteria for an acute kidney injury. She is on normal saline. Will recheck a chemistry panel in the morning (7) COPD (chronic obstructive pulmonary disease) Impression: No evidence of exacerbation. Continue home bronchodilators. She has DuoNebs available as needed (8) Moderate major depression Impression: Stable. Continue escitalopram 10 mg daily (9) Thrush Impression: She will be started on nystatin swish and swallow (10) Anemia Impression: This is a normocytic anemia. She has had a precipitous drop in her hemoglobin over the past few weeks. On 02/02/2024 her hemoglobin was 11.2. Was 9.7 on admission and has since dropped to 8.7 likely due to hemodilution. There is no evidence of active bleeding. Will get an anemia panel. She does not have micr ocytic indices. But we will check her stool for occult blood. (11) Hypomagnesemia Impression: This will be repleted with IV magnesium sulfate today. He will have a level drawn in the morning (12) Hypokalemia Impression: This will be repleted today and she will have a chemistry panel drawn in the morning (13) Hyponatremia Impression: Currently the patient is on normal saline. She will have a chemistry panel in the morning. (14) Ambulatory dysfunction Impression: Due to pubic ramus fracture. Physical therapy and Occupational Therapy will see the patient (15) Reactive thrombocytosis Impression: Likely reactive to her acute illness Disposition: Inpatient hospitalization remains necessary. The patient is hypoxic and has pneumonia requiring parenteral antibiotics. Timing of dispositi on will be determined by her clinical course Time spent: 35 minutes
[2024-02-13 16:21] LABS: ABSOLUTE RETICS # AUTO 0.08 10^6/uL (0.020-0.110); RED BLOOD COUNT 2.59 10^6/uL (4.20-5.40); RETICULOCYTE COUNT % (AUTO) 3.09 % (0.5-2.3)
[2024-02-13] MEDS: PIPERACILLIN/TAZOBACTAM 2.25 GM in SODIUM CHLORIDE 0.9% MINIBAG 100 ML IV SCH (17:16)
[2024-02-14 05:27] LABS: BASOPHILS % (AUTO) 0.3 %; EOSINOPHILS # (AUTO) 0.2 10^3/uL (0.0-0.7); EOSINOPHILS % (AUTO) 1.3 %; HGB - HEMOGLOBIN 7.9 g/dL (12.0-16.0); LYMPHOCYTES # (AUTO) 0.8 10^3/uL (1.5-3.5); LYMPHOCYTES % (AUTO) 7.2 %; MEAN CORPUSCULAR HEMOGLOBIN 30.4 pg (27.0-31.0); MEAN CORPUSCULAR HGB CONC 32.9 g/dL (32.0-36.0); MEAN CORPUSCULAR VOLUME 92.3 fL (81.0-99.0); MEAN PLATELET VOLUME 10.4 fL (7.9-10.8); MONOCYTES # (AUTO) 1.2 10^3/uL (0.0-1.0); MONOCYTES % (AUTO) 9.9 %; NEUTROPHILS # (AUTO) 9.1 10^3/uL (1.5-6.6); NEUTROPHILS % (AUTO) 78.1 %; PLT - PLATELET COUNT 535 10^3/uL (130-450); WHITE BLOOD COUNT 11.7 x10^3/uL (4.8-10.8)
[2024-02-14] MEDS: BENZONATATE 100 MG CAPSULE PO PRN (06:00)
[2024-02-14 06:32] LABS: ALBUMIN 2.3 g/dL (3.2-5.5); CALCIUM 7.1 mg/dL (8.5-10.3); CREATININE 1.8 mg/dL (0.6-1.3); PHOSPHORUS 2.5 mg/dL (2.5-5.0); POTASSIUM 4.1 mmol/L (3.5-4.5)
[2024-02-14] MEDS ORDERED: SODIUM CHLORIDE 0.9% MINIBAG 100 ML IV ONE (08:11)
--- NOTE | 2024-02-14 09:16 | PROVIDER PROGRESS NOTE ---
Subjective - Prog Note Date Prog Note Date: 02/14/24 Prog Note Time: 09:15 - Subjective Pt reports feeling: Worse Subjective: The patient is resting in her bed. She says she feels a little better but has developed quite a bit of wheezing overnight. She feels like her COPD is flared up. She has had no further fever or chills. No chest pain or heart palpitations. She is frequently coughing and wheezing this morning. She has no nausea vomiting or diarrhea. No urinary complaints Current Medications - Current Medications Current Medications: Active Medications Generic Name Dose Route Start Last Admin Trade Name Freq PRN Reason Stop Dose Admin Hydrocodone Bitart/Acetaminophen 1 tab 02/12/24 20:10 02/14/24 06:00 Hydrocod/Acetam 5/325 Mg Tablet PO 1 tab Q6H PRN Administration PAIN 5-7 Albuterol/Ipratropium 3 ml 02/13/24 16:12 Ipratropium/Albuterol 3 Ml Neb INH Q6HR PRN Shortness of Air/Wheezing Amiodarone HCl 200 mg 02/13/24 09:00 02/14/24 08:15 Amiodarone 200 Mg Tablet PO 200 mg DAILY HERI Administration Apixaban 2.5 mg 02/12/24 21:00 02/14/24 08:15 Apixaban 2.5 Mg Tablet PO 2.5 mg BID HERI Administration Benzonatate 100 mg 02/12/24 20:10 02/14/24 06:00 Benzonatate 100 Mg Capsule PO 100 mg TID PRN Administration Cough Budesonide 0.5 mg 02/13/24 08:00 02/13/24 19:20 Budesonide 0.5 Mg/2 Ml Neb INH 0.5 mg RTBID HERI Administration Escitalopram Oxalate 10 mg 02/13/24 09:00 02/14/24 08:15 Escitalopram 10 Mg Tablet PO 10 mg DAILY HERI Administration Sodium Chloride 1,000 mls @ 75 mls/hr 02/12/24 20:00 02/14/24 00:41 Normal Saline 0.9% IV 75 mls/hr .[id number] HERI Infusion Ceftriaxone Sodium 2 gm/ 100 mls @ 200 mls/hr 02/13/24 09:00 02/14/24 08:16 Sodium Chloride IV 200 mls/hr DAILY HERI Administration Doxycycline Hyclate 100 mg/ 100 mls @ 100 mls/hr 02/13/24 09:00 02/14/24 08:18 Sodium Chloride IV 100 mls/hr BID HERI Administration Piperacillin Sod/Tazobactam 100 mls @ 200 mls/hr 02/13/24 17:00 02/14/24 00:41 Sod 2.25 gm/ Sodium Chloride IV Infused Q8H HERI Infusion Methylprednisolone 40 mg 02/14/24 10:00 Methylprednisolone Succinate 40 Mg/Ml Vial IVP TID HREI Metoprolol Tartrate 100 mg 02/12/24 21:00 02/14/24 08:15 Metoprolol Tartrate 50 Mg Tablet PO 100 mg BID HERI Administration Multi-Ingredient Mouthwash/Gargle 30 ml 02/13/24 11:00 02/14/24 06:00 Magic Mouthwash (Nystatin) 120 Ml Bottle PO 30 ml Q6H HERI Administration Multivitamins/Minerals 1 tab 02/13/24 09:00 02/14/24 08:15 Multivitamin W/Minerals Tablet PO 1 tab DAILYWM HERI Administration Ondansetron HCl 4 mg 02/12/24 20:01 Ondansetron 4 Mg/2 Ml Vial IVP Q6HR PRN Nausea / Vomiting Oxycodone HCl 2.5 mg 02/12/24 20:10 Oxycodone 5 Mg Tablet PO Q6H PRN PAIN >8 Prochlorperazine Edisylate 10 mg 02/12/24 20:01 Prochlorperazine 10 Mg/2 Ml Vial IVP Q6HR PRN Nausea / Vomiting Saliva Substitute 2 sprays 02/13/24 10:39 Saliva Stimulant [place] 44.3 Ml Bottle PO Q4H PRN Mouth Sore Pain Sodium Chloride 10 ml 02/12/24 19:54 Sodium Chloride Flush 0.9% 10 Ml Syringe IVP PRN PRN NEEDED PER PROVIDER ORDERS Sodium Chloride 10 ml 02/13/24 01:00 02/14/24 00:23 Sodium Chloride Flush 0.9% 10 Ml Syringe IVP Not Given 0100,0900,1700 HERI Albuterol Sulf [Ventolin Hfa Inhaler] 2 puffs INH Q6H PRN 08/09/21 Fluticasone 110 Mcg [Flovent] 1 puffs INH BID 10/24/21 Alendronate [Fosamax] 70 mg PO Q7D 11/06/21 Amiodarone [Pacerone] 200 mg PO DAILY 11/06/21 Metoprolol Tartrate [Lopressor] 100 mg PO BID 11/06/21 hydroCHLOROthiazide [Hydrodiuril] 25 mg PO DAILY 11/06/21 Escitalopram [Lexapro] 10 mg PO DAILY 11/07/22 Nystatin [Mycostatin] 1 misc PO QID 02/13/24 Sulfamethox/Trimeth 800/160 [Bactrim Ds] 1 tab PO BID 02/13/24 Objective - Vital Signs/Intake & Output Reviewed Vital Signs: Yes Vital Signs: Vital Signs x48h Temp Pulse Resp BP BP Pulse Ox O2 Flow Rate 02/14/24 08:27 2 02/14/24 08:15 114/49 L 02/14/24 07:45 36.7 C 64 18 114/49 L 93 2 02/14/24 04:31 36.6 C 66 14 128/52 L 93 2 Intake & Output: Intake & Output 02/11/24 02/12/24 02/13/24 02/14/24 23:59 23:59 23:59 23:59 Intake Total 125 3420 1252.5 Output Total 600 300 Balance 125 2820 952.5 - Objective General Appearance: positive: No acute distress, Other (The patient is frequentl y coughing and wheezing) Eyes Bilateral: positive: Normal inspection ENT: positive: ENT inspection nml Neck: positive: Nml inspection Respiratory: positive: Other (The patient has coarse wheezing noted throughout all lung mariano) Cardiovascular: positive: Regular rate & rhythm, No murmur, No gallop. negative: Friction rub Abdomen: positive: Non-tender, No organomegaly, Nml bowel sounds Skin: positive: Color nml, No rash, Warm, Dry Extremities: positive: Non-tender, Full ROM Neurologic/Psychiatric: positive: Oriented x3, CN's nml (2-12) - Lab Results Fish Bones: 02/14/24 05:14 02/14/24 05:14 Other Labs: Lab Results x24hrs 02/14/24 02/14/24 02/13/24 Range/Units 05:14 05:14 16:26 WBC 11.7 H (4.8-10.8) x10^3/uL RBC 2.60 L (4.20-5.40) 10^6/uL Hgb 7.9 L (12.0-16.0) g/dL Hct 24.0 L (37.0-47.0) % MCV 92.3 (81.0-99.0) fL MCH 30.4 (27.0-31.0) pg MCHC 32.9 (32.0-36.0) g/dL RDW 16.0 H (12.0-15.0) % Plt Count 535 H (130-450) 10^3/uL MPV 10.4 (7.9-10.8) fL Reticulocyte % (Auto) (0.5-2.3) % Neut # (Auto) 9.1 H (1.5-6.6) 10^3/uL Lymph # (Auto) 0.8 L (1.5-3.5) 10^3/uL [place] # (Auto) 1.2 H (0.0-1.0) 10^3/uL Eos # (Auto) 0.2 (0.0-0.7) 10^3/uL Baso # (Auto) 0.0 (0.0-0.1) 10^3/uL Absolute Nucleated RBC 0.00 x10^3/uL Nucleated RBC % 0.0 /100WBC Absolute Retic (0.020-0.110) 10^6/uL Sodium 129 L (135-145) mmol/L Potassium 4.1 (3.5-4.5) mmol/L Chloride 98 L (101-111) mmol/L Carbon Dioxide 24 (21-32) mmol/L Anion Gap 7.0 (6-13) BUN 29 H (6-20) mg/dL Creatinine 1.8 H (0.6-1.3) mg/dL Estimated GFR (MDRD) 27 L (>89) Glucose 83 (74-104) mg/dL Calcium 7.1 L (8.5-10.3) mg/dL Phosphorus 2.5 (2.5-5.0) mg/dL Magnesium 2.0 (1.7-2.3) mg/dL Iron 39 L (50-212) ug/dL TIBC 169 L (250-450) ug/dL % Saturation 23 (20-50) % Transferrin 121 L (203-362) mg/dL Albumin 2.3 L (3.2-5.5) g/dL Vitamin B12 653 (180-914) pg/mL Folate 7.2 (5.90 - >24.8) ng/mL Nasal Screen MRSA (PCR) NEGATIVE (NEGATIVE) 02/13/24 Range/Units 16:15 WBC (4.8-10.8) x10^3/uL RBC 2.59 L (4.20-5.40) 10^6/uL Hgb (12.0-16.0) g/dL Hct (37.0-47.0) % MCV (81.0-99.0) fL MCH (27.0-31.0) pg MCHC (32.0-36.0) g/dL RDW (12.0-15.0) % Plt Count (130-450) 10^3/uL MPV (7.9-10.8) fL Reticulocyte % (Auto) 3.09 H (0.5-2.3) % Neut # (Auto) (1.5-6.6) 10^3/uL Lymph # (Auto) (1.5-3.5) 10^3/uL [place] # (Auto) (0.0-1.0) 10^3/uL Eos # (Auto) (0.0-0.7) 10^3/uL Baso # (Auto) (0.0-0.1) 10^3/uL Absolute Nucleated RBC x10^3/uL Nucleated RBC % /100WBC Absolute Retic 0.080 (0.020-0.110) 10^6/uL Sodium (135-145) mmol/L Potassium (3.5-4.5) mmol/L Chloride (101-111) mmol/L Carbon Dioxide (21-32) mmol/L Anion Gap (6-13) BUN (6-20) mg/dL Creatinine (0.6-1.3) mg/dL Estimated GFR (MDRD) (>89) Glucose (74-104) mg/dL Calcium (8.5-10.3) mg/dL Phosphorus (2.5-5.0) mg/dL Magnesium (1.7-2.3) mg/dL Iron (50-212) ug/dL TIBC (250-450) ug/dL % Saturation (20-50) % Transferrin (203-362) mg/dL Albumin (3.2-5.5) g/dL Vitamin B12 (180-914) pg/mL Folate (5.90 - >24.8) ng/mL Nasal Screen MRSA (PCR) (NEGATIVE) ABX Reporting Has patient been on IV antibiotics over the past 48 hours?: Yes Assessment/Plan - Problem List (1) Acute hypoxic respiratory failure Impression: The patient still has oxygen requirements. Oxygen saturations are in the low 90s on 2 L. This is due to underlying pneumonia and it now appears she has developed a COPD exacerbation. Treatment will be outlined below. Titrate her oxygen to keep her oxygen saturations greater than 92% (2) Pneumonia Impression: Continue IV Zosyn and doxycycline. The patient feels much better in regards to her pneumonia. She feels like the IV Zosyn has really helped. (3) COPD exacerbation Impression: The patient has developed an acute exacerbation. Yesterday she was not wheezing but is having quite a bit of wheezing and coughing this morning. Will place her on 40 mg of IV Solu-Medrol every 8 hours today and will continue scheduled breathing treatments (4) Adenocarcinoma of lung Impression: Currently under surveillance. She has been doing fairly well. Palliative medicine follows with her as well as oncology as an outpatient (5) Pubic ramus fracture Impression: Likely pathologic due to ground-level fall. Continue to work with physical thera py and Occupational Therapy. Qualifiers: Encounter type: initial encounter Fracture type: closed Laterality: right Qualified Code(s): S32.591A - Other specified fracture of right pubis, initial encounter for closed fracture (6) Persistent atrial fibrillation Impression: Currently in a sinus rhythm and rate controlled. Continue amiodarone. She is on Eliquis for anticoagulation (7) Chronic renal failure, stage 3 (moderate) Impression: Stable (8) Moderate major depression Impression: Continue escitalopram 10 mg daily (9) Thrush Impression: Continue nystatin swish and swallow (10) Anemia Impression: She has had a significant drop in her hemoglobin over the past couple of months. It is now drifted down to 7.9. Labs reveal that she is iron deficient. Will give her a dose of IV iron today and start her on p.o. supplementation. There is no evidence of active bleeding at this point. Further workup can likely be performed as an outpatient (11) Hypomagnesemia Impression: Repleted and resolved (12) Hypokalemia Impression: Repleted and resolved (13) Hyponatremia Impression: Improving (14) Reactive thrombocytosis Impression: Likely reactive to her acute illness. Improving (15) Ambulatory dysfunction Impression: Continue to work with physical therapy and Occupational Therapy Disposition: Inpatient hospitalization remains necessary. The patient is still requiring oxygen and now has developed diffuse wheezing requiring parenteral steroids. I am hopeful that we can get her out of the hospital within the next 24 to 48 hours if she responds to steroids today. Time spent: 35 minutes
[2024-02-14] MEDS ORDERED: IRON DEXTRAN 1,000 MG in SODIUM CHLORIDE 0.9% 250 ML IV ONE (09:20)
[2024-02-14] MEDS: IRON DEXTRAN 1,000 MG in SODIUM CHLORIDE 0.9% 250 ML IV ONE (10:35)
[2024-02-14] MEDS: methylPREDNISolone SUCCINATE 40 MG/ML VIAL IVP SCH (11:46)
[2024-02-14] MEDS: FERROUS SULFATE 325 MG TABLET PO SCH (16:53)
[2024-02-15] MEDS: LOPERAMIDE 2 MG CAPSULE PO ONE (03:14)
[2024-02-15 05:39] LABS: BASOPHILS % (AUTO) 0.1 %; HCT - HEMATOCRIT 24.7 % (37.0-47.0); HGB - HEMOGLOBIN 8.2 g/dL (12.0-16.0); LYMPHOCYTES # (AUTO) 0.5 10^3/uL (1.5-3.5); LYMPHOCYTES % (AUTO) 3.7 %; MEAN CORPUSCULAR HEMOGLOBIN 31.1 pg (27.0-31.0); MEAN CORPUSCULAR HGB CONC 33.2 g/dL (32.0-36.0); MEAN CORPUSCULAR VOLUME 93.6 fL (81.0-99.0); MEAN PLATELET VOLUME 10.8 fL (7.9-10.8); MONOCYTES # (AUTO) 0.2 10^3/uL (0.0-1.0); MONOCYTES % (AUTO) 1.3 %; NEUTROPHILS # (AUTO) 13.1 10^3/uL (1.5-6.6); NEUTROPHILS % (AUTO) 93.3 %; PLT - PLATELET COUNT 639 10^3/uL (130-450); RED BLOOD COUNT 2.64 10^6/uL (4.20-5.40); RED CELL DISTRIBUTION WIDTH 16.8 % (12.0-15.0)
[2024-02-15 05:58] LABS: ALBUMIN 2.3 g/dL (3.2-5.5); MAGNESIUM 1.9 mg/dL (1.7-2.3); PHOSPHORUS 2.1 mg/dL (2.5-5.0)
[2024-02-15 06:06] LABS: CALCIUM 7.3 mg/dL (8.5-10.3); CREATININE 1.4 mg/dL (0.6-1.3); POTASSIUM 4.7 mmol/L (3.5-4.5)
[2024-02-15] MEDS: IPRATROPIUM/ALBUTEROL 3 ML NEB INH PRN (07:33)
[2024-02-15] MEDS ORDERED: SODIUM CHLORIDE 0.9% MINIBAG 100 ML IV ONE ×2 (08:25→10:07)
[2024-02-15] MEDS: DOCUSATE SODIUM 250 MG CAPSULE PO SCH (08:43)
[2024-02-15] MEDS: polyethylene glycoL 3350 17 GM PACKET PO SCH (10:25)
--- NOTE | 2024-02-15 11:01 | PROVIDER PROGRESS NOTE ---
Subjective - Prog Note Date Prog Note Date: 02/15/24 Prog Note Time: 11:00 - Subjective Pt reports feeling: Improved Subjective: The patient is feeling a little bit better this morning. She still is having quite a bit of cough but she says the wheezing has improved. She still is requiring 2 L of oxygen. She is hoping to be weaned off of oxygen prior to discharge. Other than the persistent cough, she denies fevers or chills. No chest pain or heart palpitations. Her wheezing has improved. No nausea vomiting or diarrhea. No urinary complaints Current Medications - Current Medications Current Medications: Active Medications Generic Name Dose Route Start Last Admin Trade Name Freq PRN Reason Stop Dose Admin Hydrocodone Bitart/Acetaminophen 1 tab 02/12/24 20:10 02/14/24 21:02 Hydrocod/Acetam 5/325 Mg Tablet PO 1 tab Q6H PRN Administration PAIN 5-7 Albuterol/Ipratropium 3 ml 02/13/24 16:12 02/15/24 07:33 Ipratropium/Albuterol 3 Ml Neb INH 3 ml Q6HR PRN Administration Shortness of Air/Wheezing Amiodarone HCl 200 mg 02/13/24 09:00 02/15/24 08:43 Amiodarone 200 Mg Tablet PO 200 mg DAILY HERI Administration Apixaban 2.5 mg 02/12/24 21:00 02/15/24 08:43 Apixaban 2.5 Mg Tablet PO 2.5 mg BID HERI Administration Benzonatate 100 mg 02/12/24 20:10 02/15/24 06:27 Benzonatate 100 Mg Capsule PO 100 mg TID PRN Administration Cough Budesonide 0.5 mg 02/13/24 08:00 02/15/24 07:33 Budesonide 0.5 Mg/2 Ml Neb INH 0.5 mg RTBID HERI Administration Docusate Sodium 250 - 500 mg 02/15/24 09:00 02/15/24 10:25 Docusate Sodium 250 Mg Capsule PO Not Given DAILY HERI Escitalopram Oxalate 10 mg 02/13/24 09:00 02/15/24 08:43 Escitalopram 10 Mg Tablet PO 10 mg DAILY HERI Administration Ferrous Sulfate 325 mg 02/14/24 17:00 02/15/24 08:42 Ferrous Sulfate 325 Mg Tablet PO 325 mg BIDWM HERI Administration Heparin Sodium (Beef Lung) 30 - 50 unit 02/14/24 19:54 Heparin Flush 50 Units/5 Ml Syringe IVP PRN PRN Port Protocol (<24 hours) Heparin Sodium (Beef Lung) 300 - 500 unit 02/14/24 19:54 Heparin Flush 500 Units/5 Ml Syringe IVP PRN PRN Port Protocol (>24 hours) Doxycycline Hyclate 100 mg/ 100 mls @ 100 mls/hr 02/13/24 09:00 02/14/24 22:20 Sodium Chloride IV Infused BID HERI Infusion Piperacillin Sod/Tazobactam 100 mls @ 25 mls/hr 02/13/24 17:00 02/15/24 09:05 Sod 2.25 gm/ Sodium Chloride IV 25 mls/hr Q8H HERI Administration Methylprednisolone 40 mg 02/14/24 10:00 02/15/24 05:23 Methylprednisolone Succinate 40 Mg/Ml Vial IVP 40 mg TID HERI Administration Metoprolol Tartrate 100 mg 02/12/24 21:00 02/15/24 08:42 Metoprolol Tartrate 50 Mg Tablet PO 100 mg BID HERI Administration Multi-Ingredient Mouthwash/Gargle 30 ml 02/13/24 11:00 02/15/24 05:23 Magic Mouthwash (Nystatin) 120 Ml Bottle PO 30 ml Q6H HERI Administration Multivitamins/Minerals 1 tab 02/13/24 09:00 02/15/24 08:43 Multivitamin W/Minerals Tablet PO 1 tab DAILYWM HERI Administration Ondansetron HCl 4 mg 02/12/24 20:01 Ondansetron 4 Mg/2 Ml Vial IVP Q6HR PRN Nausea / Vomiting Oxycodone HCl 2.5 mg 02/12/24 20:10 Oxycodone 5 Mg Tablet PO Q6H PRN PAIN >8 Polyethylene Glycol 17 gm 02/15/24 09:00 02/15/24 10:25 Polyethylene Glycol 3350 17 Gm Packet PO Not Given DAILY HERI Prochlorperazine Edisylate 10 mg 02/12/24 20:01 Prochlorperazine 10 Mg/2 Ml Vial IVP Q6HR PRN Nausea / Vomiting Saliva Substitute 2 sprays 02/13/24 10:39 Saliva Stimulant [place] 44.3 Ml Bottle PO Q4H PRN Mouth Sore Pain Sodium Chloride 10 ml 02/12/24 19:54 Sodium Chloride Flush 0.9% 10 Ml Syringe IVP PRN PRN NEEDED PER PROVIDER ORDERS Sodium Chloride 10 ml 02/13/24 01:00 02/15/24 08:44 Sodium Chloride Flush 0.9% 10 Ml Syringe IVP 10 ml 0100,0900,1700 HERI Administration Albuterol Sulf [Ventolin Hfa Inhaler] 2 puffs INH Q6H PRN 08/09/21 Fluticasone 110 Mcg [Flovent] 1 puffs INH BID 10/24/21 Alendronate [Fosamax] 70 mg PO Q7D 11/06/21 Amiodarone [Pacerone] 200 mg PO DAILY 11/06/21 Metoprolol Tartrate [Lopressor] 100 mg PO BID 11/06/21 hydroCHLOROthiazide [Hydrodiuril] 25 mg PO DAILY 11/06/21 Escitalopram [Lexapro] 10 mg PO DAILY 11/07/22 Nystatin [Mycostatin] 1 misc PO QID 02/13/24 Sulfamethox/Trimeth 800/160 [Bactrim Ds] 1 tab PO BID 02/13/24 Objective - Vital Signs/Intake & Output Reviewed Vital Signs: Yes Vital Signs: Vital Signs x48h Temp Pulse Pulse Resp BP BP Pulse Ox 02/15/24 08:42 114/59 L 02/15/24 07:48 36.6 C 66 20 114/59 L 95 02/15/24 07:35 68 20 02/15/24 05:04 36.4 C L 66 16 153/74 H 94 O2 Flow Rate 02/15/24 08:42 02/15/24 07:48 4 02/15/24 07:35 2 02/15/24 05:04 2 Intake & Output: Intake & Output 02/12/24 02/13/24 02/14/24 02/15/24 23:59 23:59 23:59 23:59 Intake Total 125 3420 3522.5 1271.25 Output Total 600 1100 100 Balance 125 2820 2422.5 1171.25 - Objective General Appearance: positive: No acute distress, Other (She is receiving oxygen via nasal cannula) Eyes Bilateral: positive: Normal inspection ENT: positive: ENT inspection nml Neck: positive: Nml inspection Respiratory: positive: Chest non-tender, Wheezes (She has some mild wheezing noted throughout all lung [place] with some scattered coarse rhonchi bilaterally) Cardiovascular: positive: Regular rate & rhythm, No murmur, No gallop. negative: Friction rub Abdomen: positive: Non-tender, No organomegaly, Nml bowel sounds Skin: positive: Color nml, No rash, Warm, Dry Extremities: positive: Non-tender, Full ROM Neurologic/Psychiatric: positive: Oriented x3, CN's nml (2-12) - Lab Results Fish Bones: 02/15/24 05:25 02/15/24 05:25 Other Labs: Lab Results x24hrs 02/15/24 02/15/24 Range/Units 05:25 05:25 WBC 14.0 H (4.8-10.8) x10^3/uL RBC 2.64 L (4.20-5.40) 10^6/uL Hgb 8.2 L (12.0-16.0) g/dL Hct 24.7 L (37.0-47.0) % MCV 93.6 (81.0-99.0) fL MCH 31.1 H (27.0-31.0) pg MCHC 33.2 (32.0-36.0) g/dL RDW 16.8 H (12.0-15.0) % Plt Count 639 H (130-450) 10^3/uL MPV 10.8 (7.9-10.8) fL Neut # (Auto) 13.1 H (1.5-6.6) 10^3/uL Lymph # (Auto) 0.5 L (1.5-3.5) 10^3/uL [place] # (Auto) 0.2 (0.0-1.0) 10^3/uL Eos # (Auto) 0.0 (0.0-0.7) 10^3/uL Baso # (Auto) 0.0 (0.0-0.1) 10^3/uL Absolute Nucleated RBC 0.00 x10^3/uL Nucleated RBC % 0.0 /100WBC Sodium 132 L (135-145) mmol/L Potassium 4.7 H (3.5-4.5) mmol/L Chloride 103 (101-111) mmol/L Carbon Dioxide 24 (21-32) mmol/L Anion Gap 5.0 L (6-13) BUN 25 H (6-20) mg/dL Creatinine 1.4 H (0.6-1.3) mg/dL Estimated GFR (MDRD) 36 L (>89) Glucose 145 H (74-104) mg/dL Calcium 7.3 L (8.5-10.3) mg/dL Phosphorus 2.1 L (2.5-5.0) mg/dL Magnesium 1.9 (1.7-2.3) mg/dL Albumin 2.3 L (3.2-5.5) g/dL ABX Reporting Has patient been on IV antibiotics over the past 48 hours?: Yes Assessment/Plan - Problem List (1) Acute hypoxic respiratory failure Impression: The patient is still requiring 2 L of oxygen however oxygenation is improving. Her respiratory failure is due to underlying pneumonia and COPD exacerbation. Continue treatment as outlined below. Nursing staff should try to start weaning her off of oxygen today if possible (2) Pneumonia Impression: Continue IV Zosyn and doxycycline. She is improving. (3) COPD exacerbation Impression: Continue IV Solu-Medrol today. Will likely change her over to prednisone tomorrow. (4) Adenocarcinoma of lung Impression: Currently under surveillance. She will follow-up with oncology and palliative medicine as an outpatient (5) Pubic ramus fracture Impression: Supportive care. Continue to work with physical therapy and Occupational Therapy Qualifiers: Encounter type: initial encounter Fracture type: closed Laterality: right Qualified Code(s): S32.591A - Other specified fracture of right pubis, initial encounter for closed fracture (6) Persistent atrial fibrillation Impression: Continue amiodarone. She is on Eliquis for anticoagulation. Currently in a sinus rhythm and rate control (7) Chronic renal failure, stage 3 (moderate) Impression: Stable (8) Moderate major depression Impression: Continue escitalopram 10 mg daily (9) Thrush Impression: Continue nystatin swish and swallow (10) Anemia Impression: She has an iron deficiency anemia. She received a dose of IV iron and has been placed on ferrous sulfate. Hemoglobin has improved a bit. (11) Hypomagnesemia Impression: Repleted and resolved (12) Hypokalemia Impression: Repleted. Her potassium level today slightly above normal. Continue to monitor and hold off on further supplementation (13) Hyponatremia Impression: Chronic and stable (14) Reactive thrombocytosis Impression: Continue to monitor (15) Hypophosphatemia Impression: This will be repleted today and she will have a level drawn in the morning (16) Ambulatory dysfunction Impression: Physical therapy and Occupational Therapy have been consulted but have not yet seen the patient. Her goal is to go home and she has family support. Disposition: Inpatient hospitalization remains necessary. The patient is hypoxic still requiring oxygen support. She is requiring parenteral steroids and antibiotics. Timing of disposition will be determined by her clinical co miguel
[2024-02-15] MEDS: NEUTRA-PHOS 250 MG TABLET PO SCH (12:20)
[2024-02-16 05:19] LABS: BASOPHILS % (AUTO) 0.1 %; HCT - HEMATOCRIT 25.3 % (37.0-47.0); LYMPHOCYTES # (AUTO) 0.5 10^3/uL (1.5-3.5); LYMPHOCYTES % (AUTO) 3.3 %; MEAN CORPUSCULAR HEMOGLOBIN 30.5 pg (27.0-31.0); MEAN CORPUSCULAR HGB CONC 31.6 g/dL (32.0-36.0); MEAN CORPUSCULAR VOLUME 96.6 fL (81.0-99.0); MEAN PLATELET VOLUME 10.8 fL (7.9-10.8); MONOCYTES # (AUTO) 0.4 10^3/uL (0.0-1.0); MONOCYTES % (AUTO) 2.9 %; NEUTROPHILS # (AUTO) 13.3 10^3/uL (1.5-6.6); NEUTROPHILS % (AUTO) 92.1 %; PLT - PLATELET COUNT 647 10^3/uL (130-450); RED BLOOD COUNT 2.62 10^6/uL (4.20-5.40); RED CELL DISTRIBUTION WIDTH 17.9 % (12.0-15.0); WHITE BLOOD COUNT 14.4 x10^3/uL (4.8-10.8)
[2024-02-16 05:38] LABS: ALBUMIN 2.4 g/dL (3.2-5.5); CALCIUM 7.3 mg/dL (8.5-10.3); CREATININE 1.3 mg/dL (0.6-1.3); MAGNESIUM 1.9 mg/dL (1.7-2.3); PHOSPHORUS 2.2 mg/dL (2.5-5.0); POTASSIUM 4.7 mmol/L (3.5-4.5)
--- NOTE | 2024-02-16 10:33 | PROVIDER PROGRESS NOTE ---
Subjective - Prog Note Date Prog Note Date: 02/16/24 Prog Note Time: 10:30 - Subjective Pt reports feeling: Worse Subjective: The patient is feeling a little worse today. When I initially went to see her I woke her up and she did not want to talk to me. I went back in the room and she was awake and alert but she is somewhat out of sorts. She said when I came into the room she felt like I was a general freight agent and she is not sure what all of these people are doing. She does seem to be alert and oriented but definitely more out of sorts than she has been and she is somewhat anxious. She tells me that her breathing has worsened. She says her wheezing is worse and overall just feels terrible. No fever or chills. No chest pain. No heart palpitations that she is aware of. Worsening cough. She is having some episodes of bronchospasm and wheezing. No nausea vomiting or diarrhea. No urinary Current Medications - Current Medications Current Medications: Active Medications Generic Name Dose Route Start Last Admin Trade Name [place] PRN Reason Stop Dose Admin Hydrocodone Bitart/Acetaminophen 1 tab 02/12/24 20:10 02/16/24 09:49 Hydrocod/Acetam 5/325 Mg Tablet PO 1 tab Q6H PRN Administration PAIN 5-7 Albuterol/Ipratropium 3 ml 02/13/24 16:12 02/15/24 07:33 Ipratropium/Albuterol 3 Ml Neb INH 3 ml Q6HR PRN Administration Shortness of Air/Wheezing Amiodarone HCl 200 mg 02/13/24 09:00 02/16/24 09:50 Amiodarone 200 Mg Tablet PO 200 mg DAILY HERI Administration Apixaban 2.5 mg 02/12/24 21:00 02/16/24 09:49 Apixaban 2.5 Mg Tablet PO 2.5 mg BID HERI Administration Benzonatate 100 mg 02/12/24 20:10 02/15/24 06:27 Benzonatate 100 Mg Capsule PO 100 mg TID PRN Administration Cough Budesonide 0.5 mg 02/13/24 08:00 02/16/24 07:52 Budesonide 0.5 Mg/2 Ml Neb INH Not Given RTBID HERI Docusate Sodium 250 - 500 mg 02/15/24 09:00 02/16/24 09:50 Docusate Sodium 250 Mg Capsule PO Not Given DAILY [facility] Escitalopram Oxalate 10 mg 02/13/24 09:00 02/16/24 09:49 Escitalopram 10 Mg Tablet PO 10 mg DAILY HERI Administration Ferrous Sulfate 325 mg 02/14/24 17:00 02/16/24 09:50 Ferrous Sulfate 325 Mg Tablet PO 325 mg BIDWM HERI Administration Heparin Sodium (Beef Lung) 30 - 50 unit 02/14/24 19:54 Heparin Flush 50 Units/5 Ml Syringe IVP PRN PRN Port Protocol (<24 hours) Heparin Sodium (Beef Lung) 300 - 500 unit 02/14/24 19:54 Heparin Flush 500 Units/5 Ml Syringe IVP PRN PRN Port Protocol (>24 hours) Doxycycline Hyclate 100 mg/ 100 mls @ 100 mls/hr 02/13/24 09:00 02/16/24 08:30 Sodium Chloride IV 100 mls/hr BID HERI Administration Piperacillin Sod/Tazobactam 100 mls @ 25 mls/hr 02/13/24 17:00 02/16/24 09:45 Sod 2.25 gm/ Sodium Chloride IV 25 mls/hr Q8H [facility] Administration Loperamide HCl 2 mg 02/16/24 10:23 Loperamide 2 Mg Capsule PO QID PRN Diarrhea Methylprednisolone 40 mg 02/14/24 10:00 02/16/24 05:00 Methylprednisolone Succinate 40 Mg/Ml Vial IVP 40 mg TID [facility] Administration Metoprolol Tartrate 100 mg 02/12/24 21:00 02/16/24 09:49 Metoprolol Tartrate 50 Mg Tablet PO 100 mg BID [facility] Administration Multi-Ingredient Mouthwash/Gargle 30 ml 02/13/24 11:00 02/16/24 04:52 Magic Mouthwash (Nystatin) 120 Ml Bottle PO Not Given Q6H [facility] Multivitamins/Minerals 1 tab 02/13/24 09:00 02/16/24 09:50 Multivitamin W/Minerals Tablet PO 1 tab DAILYWM [facility] Administration Ondansetron HCl 4 mg 02/12/24 20:01 Ondansetron 4 Mg/2 Ml Vial IVP Q6HR PRN Nausea / Vomiting Oxycodone HCl 2.5 mg 02/12/24 20:10 Oxycodone 5 Mg Tablet PO Q6H PRN PAIN >8 Polyethylene Glycol 17 gm 02/15/24 09:00 02/16/24 09:50 Polyethylene Glycol 3350 17 Gm Packet PO Not Given DAILY HERI Prochlorperazine Edisylate 10 mg 02/12/24 20:01 Prochlorperazine 10 Mg/2 Ml Vial IVP Q6HR PRN Nausea / Vomiting Saliva Substitute 2 sprays 02/13/24 10:39 Saliva Stimulant [place] 44.3 Ml Bottle PO Q4H PRN Mouth Sore Pain Sodium Chloride 10 ml 02/12/24 19:54 Sodium Chloride Flush 0.9% 10 Ml Syringe IVP PRN PRN NEEDED PER PROVIDER ORDERS Sodium Chloride 10 ml 02/13/24 01:00 02/16/24 09:51 Sodium Chloride Flush 0.9% 10 Ml Syringe IVP 10 ml 0100,0900,1700 HERI Administration Albuterol Sulf [Ventolin Hfa Inhaler] 2 puffs INH Q6H PRN 08/09/21 Fluticasone 110 Mcg [Flovent] 1 puffs INH BID 10/24/21 Alendronate [Fosamax] 70 mg PO Q7D 11/06/21 Amiodarone [Pacerone] 200 mg PO DAILY 11/06/21 Metoprolol Tartrate [Lopressor] 100 mg PO BID 11/06/21 hydroCHLOROthiazide [Hydrodiuril] 25 mg PO DAILY 11/06/21 Escitalopram [Lexapro] 10 mg PO DAILY 11/07/22 Nystatin [Mycostatin] 1 misc PO QID 02/13/24 Sulfamethox/Trimeth 800/160 [Bactrim Ds] 1 tab PO BID 02/13/24 Objective - Vital Signs/Intake & Output Reviewed Vital Signs: Yes Vital Signs: Vital Signs x48h Temp Pulse Resp BP BP Pulse Ox O2 Flow Rate 02/16/24 09:49 149/70 H 02/16/24 07:00 2 02/16/24 05:01 36.6 C 60 20 157/67 H 93 2 Intake & Output: Intake & Output 02/13/24 02/14/24 02/15/24 02/16/24 23:59 23:59 23:59 23:59 Intake Total 3420 3522.5 3481.25 100 Output Total 600 1100 100 Balance 2820 2422.5 3381.25 100 - Objective General Appearance: positive: Anxious, Other (Slightly confused as to her situation) Eyes Bilateral: positive: Normal inspection ENT: positive: ENT inspection nml Neck: positive: Nml inspection Respiratory: positive: Chest non-tender, Other (She has coarse wheezing noted throughout all lung [place]) Cardiovascular: positive: Regular rate & rhythm, No murmur, No gallop. negative: Friction rub Abdomen: positive: Non-tender, No organomegaly, Nml bowel sounds Skin: positive: Color nml, No rash, Warm Extremities: positive: Non-tender, Full ROM Neurologic/Psychiatric: positive: Oriented x3, CN's nml (2-12) - Lab Results Fish Bones: 02/16/24 04:50 02/16/24 04:50 Other Labs: Lab Results x24hrs 02/16/24 02/16/24 Range/Units 04:50 04:50 WBC 14.4 H (4.8-10.8) x10^3/uL RBC 2.62 L (4.20-5.40) 10^6/uL Hgb 8.0 L (12.0-16.0) g/dL Hct 25.3 L (37.0-47.0) % MCV 96.6 (81.0-99.0) fL MCH 30.5 (27.0-31.0) pg MCHC 31.6 L (32.0-36.0) g/dL RDW 17.9 H (12.0-15.0) % Plt Count 647 H (130-450) 10^3/uL MPV 10.8 (7.9-10.8) fL Neut # (Auto) 13.3 H (1.5-6.6) 10^3/uL Lymph # (Auto) 0.5 L (1.5-3.5) 10^3/uL [place] # (Auto) 0.4 (0.0-1.0) 10^3/uL Eos # (Auto) 0.0 (0.0-0.7) 10^3/uL Baso # (Auto) 0.0 (0.0-0.1) 10^3/uL Absolute Nucleated RBC 0.00 x10^3/uL Nucleated RBC % 0.0 /100WBC Sodium 136 (135-145) mmol/L Potassium 4.7 H (3.5-4.5) mmol/L Chloride 107 (101-111) mmol/L Carbon Dioxide 25 (21-32) mmol/L Anion Gap 4.0 L (6-13) BUN 28 H (6-20) mg/dL Creatinine 1.3 (0.6-1.3) mg/dL Estimated GFR (MDRD) 39 L (>89) Glucose 131 H (74-104) mg/dL Calcium 7.3 L (8.5-10.3) mg/dL Phosphorus 2.2 L (2.5-5.0) mg/dL Magnesium 1.9 (1.7-2.3) mg/dL Albumin 2.4 L (3.2-5.5) g/dL ABX Reporting Has patient been on IV antibiotics over the past 48 hours?: Yes Assessment/Plan - Problem List (1) Acute hypoxic respiratory failure Impression: The patient continues to require oxygen. Oxygen saturations today are 93% on [address] scan of the chest today and add a procalcitonin and BNP onto her bloodwork (2) Pneumonia Impression: Currently on IV Zosyn and doxycycline. She has not had a CT scan of her chest since last September. Will obtain a CT scan today with IV contrast for further evaluation given her lack of improvement. Continue incentive spirometry and will add flutter valve today. Continue scheduled duonebs and steroids (3) COPD exacerbation Impression: Continue IV Solu-Medrol. Continue scheduled DuoNeb treatments. The patient still has a significant amount of wheezing. (4) Adenocarcinoma of lung Impression: Currently under surveillance. (5) Pubic ramus fracture Impression: Supportive care. Continue physical therapy and Occupational Therapy. Will ask the nursing staff to get her up to a chair today. Qualifiers: Encounter type: initial encounter Fracture type: closed Laterality: right Qualified Code(s): S32.591A - Other specified fracture of right pubis, initial encounter for closed fracture (6) Persistent atrial fibrillation Impression: Continue amiodarone. She is on Eliquis for anticoagulation (7) Chronic renal failure, stage 3 (moderate) Impression: The patient's creatinine has trended down and currently is 1.3. (8) Moderate major depression Impression: Continue Lexapro 10 mg daily (9) Thrush Impression: Continue nystatin swish and swallow (10) Anemia Impression: She has an iron deficiency anemia. She has received IV iron and is on p.o. supplementation. Hemoglobin is stable (11) Hypomagnesemia Impression: Repleted and resolved (12) Hypokalemia Impression: What repleted. Potassium level slightly high. No intervention is necessary today. (13) Hyponatremia Impression: Resolved (14) Reactive thrombocytosis Impression: Reactive to her acute illness. (15) Ambulatory dysfunction Impression: The patient has a pubic ramus fracture. She had been doing fairly well. I am concerned that we do not have physical therapy here over the weekend. Will get her up to a chair today and perhaps the nursing staff can get her to ambulate a bit in the room. Disposition: Inpatient hospitalization remains necessary. The patient's oxygen saturations are still low even with oxygen supplementation. She is requiring parenteral antibiotics and steroids. She is slow to improve. Will obtain a CT scan of the chest today for further evaluation Time spent: 35 minutes
[2024-02-16] MEDS ORDERED: iohexoL-300 100 ML VIAL ONE (11:19)
[2024-02-16] MEDS: LOPERAMIDE 2 MG CAPSULE PO PRN (11:29)
--- NOTE | 2024-02-16 13:28 | CT Report ---
PROCEDURE: Chest W INDICATIONS: PNA, Lung ca, on amiodarone TECHNIQUE: Helical axial CT of the chest was obtained after an intravenous contrast injection and ref ormatted in multiple planes. Radiation dose reduction was achieved using automated exposure control, adjustment of mA and/or kV according to patient size. COMPARISON: None FINDINGS: Lungs and pleura: Bilateral moderate pleural effusions with compressive consolidation of the right regan ng with enhancement, new from the prior. Linear and nodular scarring in noted in the left lung apex i s similar to the prior exam. Patchy bilateral groundglass densities are new. Mediastinum: Heart size is normal. No pericardial effusion. No large vessel abnormality. No mediastin al adenopathy by size criteria. Chest wall and lower neck: Thyroid is unremarkable. No axillary or supraclavicular adenopathy by size . Right-sided Port-A-Cath in place Bones: No aggressive osseous abnormality. Upper Abdomen: Renal simple cysts measure up to 5 cm on the left. IMPRESSION: No evidence of pulmonary embolism, aortic dissection or aneurysm. Moderate bilateral pleural effusions with enhancing right lower lobe consolidation. Patchy bilateral groundglass opacities may reflect viral or reacquired pneumonia. Underlying pulmonar y emphysema Reviewed by: Douglas Greer MD on 02/16/2024 12:26 PM [facility] Approved by: Douglas Greer MD on 02/16/2024 12:26 PM [facility] Station ID: [id number]
[2024-02-17 07:24] LABS: BASOPHILS % (AUTO) 0.1 %; HCT - HEMATOCRIT 25.9 % (37.0-47.0); HGB - HEMOGLOBIN 8.3 g/dL (12.0-16.0); LYMPHOCYTES # (AUTO) 0.5 10^3/uL (1.5-3.5); LYMPHOCYTES % (AUTO) 3.7 %; MEAN CORPUSCULAR HEMOGLOBIN 31.1 pg (27.0-31.0); MEAN PLATELET VOLUME 10.8 fL (7.9-10.8); MONOCYTES # (AUTO) 0.8 10^3/uL (0.0-1.0); MONOCYTES % (AUTO) 5.5 %; NEUTROPHILS # (AUTO) 12.4 10^3/uL (1.5-6.6); NEUTROPHILS % (AUTO) 87.5 %; NRBC ABSOLUTE COUNT (AUTO) 0.06 x10^3/uL; NUCLEATED RED BLOOD CELLS AUTO 0.4 /100WBC; PLT - PLATELET COUNT 692 10^3/uL (130-450); RED BLOOD COUNT 2.67 10^6/uL (4.20-5.40); RED CELL DISTRIBUTION WIDTH 18.4 % (12.0-15.0); WHITE BLOOD COUNT 14.1 x10^3/uL (4.8-10.8)
[2024-02-17 07:26] LABS: ALBUMIN 2.5 g/dL (3.2-5.5); CALCIUM 7.6 mg/dL (8.5-10.3); CREATININE 1.3 mg/dL (0.6-1.3); MAGNESIUM 1.9 mg/dL (1.7-2.3); PHOSPHORUS 2.1 mg/dL (2.5-5.0); POTASSIUM 4.7 mmol/L (3.5-4.5)
[2024-02-17] MEDS: FUROSEMIDE 40 MG/4 ML VIAL IVP SCH (08:41)
[2024-02-17] MEDS: FOLIC ACID 1 MG TABLET PO SCH (10:10)
--- NOTE | 2024-02-17 11:11 | PROVIDER PROGRESS NOTE ---
Subjective - Prog Note Date Prog Note Date: 02/17/24 Prog Note Time: 09:00 - Subjective Pt reports feeling: No change Subjective: The patient is an 83-year-old female with adenocarcinoma of the lung. She has previously been treated with Keytruda. She is undergoing radiation. In the past she has had pneumonitis related to her radiation and Keytruda however this is not an active issue at this time. The patient presented to the emergency room with shortness of breath on 02/11. She was found to have underlying pneumonia. The patient also had a fall at home a couple of weeks ago and has a pubic ramus fracture. She was admitted to the hospital and started on IV vancomycin and doxycycline. On 02/13 she developed wheezing and worsening SOB, was determined to have a COPD exacerbation due to her pna. She was started on methylprednisone 40 mg TID and duonebs q 6 hrs. She is also on budesonide INH BID continued in place of her home flovent. Her wheezing has resolved with only a slight exp wheeze in the left base today. Yesterday, she had worsening SOB and a cough. A CT chest was ordered and found bilateral pleural effusions with patchy ground glass opacities and underlying emphysema, no PE or aortic dissection or aneurism. Her BNP was 1186. She appears to be volume overloaded with pulmonary congestion and has gained 7 kg since her admission. I will begin diuresing her today and obtain an ECHO. She remains O2 dependent, requiring 2 lpm. She is awake and was finishing breakfast upon assessment. She endorses mild shortness of breath, about the same as yesterday. She denies chest pain, palpitations, abdominal pain, nausea, vomiting, diarrhea, dysuria, fever or chills. Current Medications - Current Medications Current Medications: Active Medications Generic Name Dose Route Start Last Admin Trade Name Freq PRN Reason Stop Dose Admin Hydrocodone Bitart/Acetaminophen 1 tab 02/12/24 20:10 02/17/24 06:49 Hydrocod/Acetam 5/325 Mg Tablet PO 1 tab Q6H PRN Administration PAIN 5-7 Albuterol/Ipratropium 3 ml 02/13/24 16:12 02/15/24 07:33 Ipratropium/Albuterol 3 Ml Neb INH 3 ml Q6HR PRN Administration Shortness of Air/Wheezing Amiodarone HCl 200 mg 02/13/24 09:00 02/17/24 08:39 Amiodarone 200 Mg Tablet PO 200 mg DAILY HERI Administration Apixaban 2.5 mg 02/12/24 21:00 02/17/24 08:39 Apixaban 2.5 Mg Tablet PO 2.5 mg BID HERI Administration Benzonatate 100 mg 02/12/24 20:10 02/15/24 06:27 Benzonatate 100 Mg Capsule PO 100 mg TID PRN Administration Cough Budesonide 0.5 mg 02/13/24 08:00 02/17/24 07:45 Budesonide 0.5 Mg/2 Ml Neb INH 0.5 mg RTBID HERI Administration Docusate Sodium 250 - 500 mg 02/15/24 09:00 02/17/24 08:41 Docusate Sodium 250 Mg Capsule PO Not Given DAILY HERI Escitalopram Oxalate 10 mg 02/13/24 09:00 02/17/24 08:39 Escitalopram 10 Mg Tablet PO 10 mg DAILY HERI Administration Ferrous Sulfate 325 mg 02/14/24 17:00 02/17/24 08:38 Ferrous Sulfate 325 Mg Tablet PO 325 mg BIDWM HERI Administration Folic Acid 1 mg 02/17/24 10:00 02/17/24 10:10 Folic Acid 1 Mg Tablet PO 02/19/24 11:00 1 mg DAILY HERI Administration Furosemide 40 mg 02/17/24 08:00 02/17/24 08:41 Furosemide 40 Mg/4 Ml Vial IVP 40 mg BIDDIURETIC HERI Administration Heparin Sodium (Beef Lung) 30 - 50 unit 02/14/24 19:54 02/16/24 14:24 Heparin Flush 50 Units/5 Ml Syringe IVP 50 unit PRN PRN Administration Port Protocol (<24 hours) Heparin Sodium (Beef Lung) 300 - 500 unit 02/14/24 19:54 Heparin Flush 500 Units/5 Ml Syringe IVP PRN PRN Port Protocol (>24 hours) Doxycycline Hyclate 100 mg/ 100 mls @ 100 mls/hr 02/13/24 09:00 02/17/24 10:09 Sodium Chloride IV Infused BID HERI Infusion Piperacillin Sod/Tazobactam 100 mls @ 25 mls/hr 02/13/24 17:00 02/17/24 10:10 Sod 2.25 gm/ Sodium Chloride IV 25 mls/hr Q8H HERI Administration Loperamide HCl 2 mg 02/16/24 10:23 02/16/24 11:29 Loperamide 2 Mg Capsule PO 2 mg QID PRN Administration Diarrhea Methylprednisolone 40 mg 02/14/24 10:00 02/17/24 06:46 Methylprednisolone Succinate 40 Mg/Ml Vial IVP 40 mg TID HERI Administration Metoprolol Tartrate 100 mg 02/12/24 21:00 02/17/24 08:39 Metoprolol Tartrate 50 Mg Tablet PO 100 mg BID HERI Administration Multi-Ingredient Mouthwash/Gargle 30 ml 02/13/24 11:00 02/17/24 10:10 Magic Mouthwash (Nystatin) 120 Ml Bottle PO 30 ml Q6H [facility] Administration Multivitamins/Minerals 1 tab 02/13/24 09:00 02/17/24 08:39 Multivitamin W/Minerals Tablet PO 1 tab DAILYWM HERI Administration Ondansetron HCl 4 mg 02/12/24 20:01 Ondansetron 4 Mg/2 Ml Vial IVP Q6HR PRN Nausea / Vomiting Oxycodone HCl 2.5 mg 02/12/24 20:10 Oxycodone 5 Mg Tablet PO Q6H PRN PAIN >8 Polyethylene Glycol 17 gm 02/15/24 09:00 02/17/24 08:44 Polyethylene Glycol 3350 17 Gm Packet PO Not Given DAILY [facility] Prochlorperazine Edisylate 10 mg 02/12/24 20:01 Prochlorperazine 10 Mg/2 Ml Vial IVP Q6HR PRN Nausea / Vomiting Saliva Substitute 2 sprays 02/13/24 10:39 Saliva Stimulant [place] 44.3 Ml Bottle PO Q4H PRN Mouth Sore Pain Sodium Chloride 10 ml 02/12/24 19:54 Sodium Chloride Flush 0.9% 10 Ml Syringe IVP PRN PRN NEEDED PER PROVIDER ORDERS Sodium Chloride 10 ml 02/13/24 01:00 02/17/24 08:45 Sodium Chloride Flush 0.9% 10 Ml Syringe IVP 10 ml 0100,0900,1700 [facility] Administration Albuterol Sulf [Ventolin Hfa Inhaler] 2 puffs INH Q6H PRN 08/09/21 Fluticasone 110 Mcg [Flovent] 1 puffs INH BID 10/24/21 Alendronate [Fosamax] 70 mg PO Q7D 11/06/21 Amiodarone [Pacerone] 200 mg PO DAILY 11/06/21 Metoprolol Tartrate [Lopressor] 100 mg PO BID 11/06/21 hydroCHLOROthiazide [Hydrodiuril] 25 mg PO DAILY 11/06/21 Escitalopram [Lexapro] 10 mg PO DAILY 11/07/22 Nystatin [Mycostatin] 1 misc PO QID 02/13/24 Sulfamethox/Trimeth 800/160 [Bactrim Ds] 1 tab PO BID 02/13/24 Objective - Vital Signs/Intake & Output Reviewed Vital Signs: Yes Vital Signs: Vital Signs x48h Temp Pulse Pulse Resp BP BP Pulse Ox 02/17/24 08:39 149/58 H 02/17/24 08:37 90 L 02/17/24 08:36 84 L 02/17/24 07:45 63 16 02/17/24 07:20 36.5 C 63 17 131/67 H 93 O2 Flow Rate 02/17/24 08:39 02/17/24 08:37 2 02/17/24 08:36 1 02/17/24 07:45 2 02/17/24 07:20 2 Intake & Output: Intake & Output 02/14/24 02/15/24 02/16/24 02/17/24 23:59 23:59 23:59 23:59 Intake Total 3522.5 3481.25 960 200 Output Total 1100 100 200 Balance 2422.5 3381.25 760 200 - Objective General Appearance: positive: Alert, Mild distress (Mild respiratory distress), Other (83 y/o female) Eyes Bilateral: positive: Normal inspection ENT: positive: Oral lesions (White ulcerations upper gums) Neck: positive: Nml inspection, No JVD, Trachea midline Respiratory: positive: Chest non-tender, Wheezes (small expiratory wheeze left base), Rales (Bilateral). negative: No respiratory distress, Breath sounds nml (Absent bilateral bases), Rhonchi Cardiovascular: positive: Regular rate & rhythm, No murmur, No gallop Peripheral Pulses: 2+ Radial (R), 2+ Radial (L), 2+ Dorsalis pedis (R), 2+ Dorsalis pedis (L) Abdomen: positive: Non-tender, No organomegaly, Nml bowel sounds, No distention. negative: Guarding, Rebound Back: positive: Nml inspection Skin: positive: Color nml, No rash, Warm, Dry Extremities: positive: Nml appearance, No pedal edema Neurologic/Psychiatric: positive: Oriented x3, CN's nml (2-12), Motor nml, Sensation nml, Mood/affect nml Comments/Other: Bart cath right chest - Lab Results Fish Bones: 02/17/24 06:50 02/17/24 06:50 Other Labs: Lab Results x24hrs 02/17/24 02/17/24 Range/Units 06:50 06:50 WBC 14.1 H (4.8-10.8) x10^3/uL RBC 2.67 L (4.20-5.40) 10^6/uL Hgb 8.3 L (12.0-16.0) g/dL Hct 25.9 L (37.0-47.0) % MCV 97.0 (81.0-99.0) fL MCH 31.1 H (27.0-31.0) pg MCHC 32.0 (32.0-36.0) g/dL RDW 18.4 H (12.0-15.0) % Plt Count 692 H (130-450) 10^3/uL MPV 10.8 (7.9-10.8) fL Neut # (Auto) 12.4 H (1.5-6.6) 10^3/uL Lymph # (Auto) 0.5 L (1.5-3.5) 10^3/uL [place] # (Auto) 0.8 (0.0-1.0) 10^3/uL Eos # (Auto) 0.0 (0.0-0.7) 10^3/uL Baso # (Auto) 0.0 (0.0-0.1) 10^3/uL Absolute Nucleated RBC 0.06 x10^3/uL Nucleated RBC % 0.4 /100WBC Sodium 139 (135-145) mmol/L Potassium 4.7 H (3.5-4.5) mmol/L Chloride 108 (101-111) mmol/L Carbon Dioxide 27 (21-32) mmol/L Anion Gap 4.0 L (6-13) BUN 34 H (6-20) mg/dL Creatinine 1.3 (0.6-1.3) mg/dL Estimated GFR (MDRD) 39 L (>89) Glucose 119 H (74-104) mg/dL Calcium 7.6 L (8.5-10.3) mg/dL Phosphorus 2.1 L (2.5-5.0) mg/dL Magnesium 1.9 (1.7-2.3) mg/dL Albumin 2.5 L (3.2-5.5) g/dL - Diagnostic Imaging Diagnostic Imaging Results: positive: Final report reviewed Diagnostic Imaging Comments: CT chest: N PE, aortic aneurism or aortic dissection. Moderate bilateral pleural effusion. Patchy ground glass opacities, viral versus reacquired pna. Underlying emphysema. ABX Reporting Has patient been on IV antibiotics over the past 48 hours?: Yes Sepsis Event Note (H) - Evaluation Current Stage of Sepsis: Ruled out Assessment/Plan - Problem List (1) Acute hypoxic respiratory failure Impression: The patient continues to require oxygen. Oxygen saturations today are 90% on 2 L today. She reports feeling mildy short of breath, no significant change since yesterday. CT chest revealed bilateral pleural effusions with pulmonary congestion. She has developed HF, likely due to volume overloaded, gaining 7 kg since admission. This will be treated with diuresis as addressed under HF. (2) Heart failure Impression: She developed worsening cough yesterday with mildly increased dyspnea while her wheezing has improved. Her BNP is 1,[address] chest shows bilateral pleural effusion with patchy opacities. This is likely pulmonary edema due to volume overload with resolving pna and underlying COPD. She has gained 7 kg since admission. ECHO has been ordered and she has been started on lasix 40 mg IV BID. I will monitor I/Os and weights for diuresis. She will also be placed on a fluid restriction. Qualifiers: Heart failure type: diastolic Heart failure chronicity: acute Qualified Code(s): I50.31 - Acute diastolic (congestive) heart failure (3) Pneumonia Impression: Currently on IV Zosyn and doxycycline. CT scan showed bilateral pleural effusions as discussed above in heart failure. I will have her continue incentive spirometry and flutter valve which she says helps her cough stuff up. I will continue scheduled duonebs and steroids. (4) COPD exacerbation Impression: Wheezing has almost comletely cleared. I will continue IV methylprednisolone and scheduled DuoNeb treatments. If her wheezing remains cleared, I can consider decreasing steroids tomorrow. Her persistent SOB is due to pulmonary edema with pleural effusions. (5) Adenocarcinoma of lung Impression: Currently under surveillance. (6) Pubic ramus fracture Impression: Supportive care. Continue physical therapy and Occupational Therapy. I will encourage her to be up to the chair for meals today. Qualifiers: Encounter type: initial encounter Fracture type: closed Laterality: right Qualified Code(s): S32.591A - Other specified fracture of right pubis, initial encounter for closed fracture (7) Persistent atrial fibrillation Impression: Continue amiodarone for rate control and Eliquis for anticoagulation. (8) Chronic renal failure, stage 3 (moderate) Impression: The patient's creatinine has trended down and currently is 1.3. GFR is stable. (9) Moderate major depression Impression: Continue Lexapro 10 mg daily (10) Thrush Impression: Oral lesions are still present, she reports overall improvement and decrease in pain. I discussed making sure she rinses and spits after using flovent at home. She states she was not doing that before. I will continue the nystatin swish and swallow. (11) Anemia Impression: She has an iron deficiency anemia. She has received IV iron and is on p.o. supplementation. Hemoglobin is stable. (12) Hypomagnesemia Impression: Repleted and resolved (13) Hypokalemia Impression: Initially low and repleted. Potassium remains slightly elevated at 4.7 today. Diuresis for HF will likely lower the potassium. I will continue to monitor daily. (14) Hyponatremia Impression: Resolved (15) Reactive thrombocytosis Impression: Reactive to her acute illness. (16) Ambulatory dysfunction Impression: The patient has a pubic ramus fracture. She had been doing fairly well. She will see PT/OT today and I will encourage nursing to get her to be up to the chair for meals.
[2024-02-17] MEDS ORDERED: WATER FOR INJECTION,STERILE 10 ML MC ONE (14:08)
[2024-02-18 06:28] LABS: BASOPHILS % (AUTO) 0.1 %; HCT - HEMATOCRIT 26.3 % (37.0-47.0); HGB - HEMOGLOBIN 8.4 g/dL (12.0-16.0); LYMPHOCYTES # (AUTO) 0.5 10^3/uL (1.5-3.5); MEAN CORPUSCULAR HEMOGLOBIN 31.1 pg (27.0-31.0); MEAN CORPUSCULAR HGB CONC 31.9 g/dL (32.0-36.0); MEAN CORPUSCULAR VOLUME 97.4 fL (81.0-99.0); MEAN PLATELET VOLUME 9.9 fL (7.9-10.8); MONOCYTES # (AUTO) 0.7 10^3/uL (0.0-1.0); MONOCYTES % (AUTO) 4.8 %; NEUTROPHILS # (AUTO) 13.3 10^3/uL (1.5-6.6); NEUTROPHILS % (AUTO) 88.8 %; NRBC ABSOLUTE COUNT (AUTO) 0.13 x10^3/uL; NUCLEATED RED BLOOD CELLS AUTO 0.9 /100WBC; PLT - PLATELET COUNT 668 10^3/uL (130-450); RED CELL DISTRIBUTION WIDTH 18.6 % (12.0-15.0); WHITE BLOOD COUNT 14.9 x10^3/uL (4.8-10.8)
[2024-02-18 06:39] LABS: ALBUMIN 2.6 g/dL (3.2-5.5); MAGNESIUM 1.8 mg/dL (1.7-2.3)
[2024-02-18 06:44] LABS: CALCIUM 8.1 mg/dL (8.5-10.3); CREATININE 1.5 mg/dL (0.6-1.3); PHOSPHORUS 2.4 mg/dL (2.5-5.0); POTASSIUM 4.2 mmol/L (3.5-4.5)
[2024-02-18] MEDS ORDERED: SODIUM CHLORIDE 0.9% MINIBAG 100 ML IV ONE ×2 (07:57→08:41)
[2024-02-18] MEDS ORDERED: MAGNESIUM SULFATE 2 GM in SODIUM CHLORIDE 0.9% 50 ML IV ONE (08:04)
[2024-02-18] MEDS ORDERED: SODIUM CHLORIDE 0.9% 50 ML IV ONE (08:41)
--- NOTE | 2024-02-18 08:52 | XRAY Report ---
PROCEDURE: Chest 1V INDICATIONS: f/u pleural effusions, chf, pna TECHNIQUE: One view of the chest was acquired. COMPARISON: 02/12/2024 FINDINGS: Surgical changes and devices: Pacemaker, Port-A-Cath Lungs and pleura: Significant interval increase in opacity in the right lung, likely a combination o f posteriorly layering pleural fluid and compressive atelectasis. Mediastinum: Mediastinal contours appear normal. Heart size is normal. Bones and chest wall: No suspicious bony lesions. Overlying soft tissues appear unremarkable. IMPRESSION: Progressive findings in the right hemithorax, consistent with posteriorly layering pleural fluid and compressive atelectasis. Reviewed by: Madi Lyons MD on 02/18/2024 8:51 AM PDT Approved by: Madi Lyons MD on 02/18/2024 8:51 AM PDT Station ID: [id number]
[2024-02-18] MEDS: MAGNESIUM SULFATE 1 GM in SODIUM CHLORIDE 0.9% 50 ML IV ONE (09:17)
--- NOTE | 2024-02-18 15:46 | PROVIDER PROGRESS NOTE ---
Subjective - Prog Note Date Prog Note Date: 02/18/24 Prog Note Time: 15:45 - Subjective Pt reports feeling: Improved Subjective: The patient is resting in her bed. I have spoken to both the patient and the patient's daughter on the phone. The patient has improved. She is stable on 2 L of oxygen. She does have persistent pleural effusions and we discussed the pros and cons of having a possible thoracentesis. At this point we are going to hold her Evelynequis in the event that the family decides to pursue this but at this point we are leaning towards sending her out on oxygen to rehab and she can follow-up with palliative medicine and decide whether to pursue thoracentesis as an outpatient. The patient's daughter wants to talk to other family members tonight and will let us know for sure tomorrow. Today the patient denies fever or chills. No chest pain or heart palpitations. She does state that she is breathing a little bit better however she has noted some heart palpitations today. She has had no chest pain. No nausea vomiting or diarrhea. No urinary complaints Current Medications - Current Medications Current Medications: Active Medications Generic Name Dose Route Start Last Admin Trade Name Freq PRN Reason Stop Dose Admin Hydrocodone Bitart/Acetaminophen 1 tab 02/12/24 20:10 02/18/24 13:22 Hydrocod/Acetam 5/325 Mg Tablet PO 1 tab Q6H PRN Administration PAIN 5-7 Albuterol/Ipratropium 3 ml 02/13/24 16:12 02/18/24 06:20 Ipratropium/Albuterol 3 Ml Neb INH 3 ml Q6HR PRN Administration Shortness of Air/Wheezing Amiodarone HCl 200 mg 02/13/24 09:00 02/18/24 08:02 Amiodarone 200 Mg Tablet PO 200 mg DAILY HERI Administration Benzonatate 100 mg 02/12/24 20:10 02/15/24 06:27 Benzonatate 100 Mg Capsule PO 100 mg TID PRN Administration Cough Budesonide 0.5 mg 02/13/24 08:00 02/18/24 06:19 Budesonide 0.5 Mg/2 Ml Neb INH 0.5 mg RTBID HERI Administration Docusate Sodium 250 - 500 mg 02/15/24 09:00 02/18/24 08:02 Docusate Sodium 250 Mg Capsule PO Not Given DAILY [facility] Escitalopram Oxalate 10 mg 02/13/24 09:00 02/18/24 08:02 Escitalopram 10 Mg Tablet PO 10 mg DAILY HERI Administration Ferrous Sulfate 325 mg 02/14/24 17:00 02/18/24 08:02 Ferrous Sulfate 325 Mg Tablet PO 325 mg BIDWM HERI Administration Folic Acid 1 mg 02/17/24 10:00 02/18/24 08:02 Folic Acid 1 Mg Tablet PO 02/19/24 11:00 1 mg DAILY HERI Administration Heparin Sodium (Beef Lung) 30 - 50 unit 02/14/24 19:54 02/16/24 14:24 Heparin Flush 50 Units/5 Ml Syringe IVP 50 unit PRN PRN Administration Port Protocol (<24 hours) Heparin Sodium (Beef Lung) 300 - 500 unit 02/14/24 19:54 Heparin Flush 500 Units/5 Ml Syringe IVP PRN PRN Port Protocol (>24 hours) Piperacillin Sod/Tazobactam 100 mls @ 25 mls/hr 02/13/24 17:00 02/18/24 09:16 Sod 2.25 gm/ Sodium Chloride IV 25 mls/hr Q8H HERI Administration Loperamide HCl 2 mg 02/16/24 10:23 02/16/24 11:29 Loperamide 2 Mg Capsule PO 2 mg QID PRN Administration Diarrhea Methylprednisolone 40 mg 02/18/24 21:00 Methylprednisolone Succinate 40 Mg/Ml Vial IVP 02/19/24 21:01 BID [facility] Methylprednisolone 40 mg 02/20/24 09:00 Methylprednisolone Succinate 40 Mg/Ml Vial IVP 02/20/24 09:01 DAILY [facility] Metoprolol Tartrate 100 mg 02/12/24 21:00 02/18/24 08:03 Metoprolol Tartrate 50 Mg Tablet PO 100 mg BID HERI Administration Multi-Ingredient Mouthwash/Gargle 30 ml 02/13/24 11:00 02/18/24 13:09 Magic Mouthwash (Nystatin) 120 Ml Bottle PO Not Given Q6H [facility] Multivitamins/Minerals 1 tab 02/13/24 09:00 02/18/24 08:02 Multivitamin W/Minerals Tablet PO 1 tab DAILYWM HERI Administration Ondansetron HCl 4 mg 02/12/24 20:01 Ondansetron 4 Mg/2 Ml Vial IVP Q6HR PRN Nausea / Vomiting Oxycodone HCl 2.5 mg 02/12/24 20:10 Oxycodone 5 Mg Tablet PO Q6H PRN PAIN >8 Polyethylene Glycol 17 gm 02/15/24 09:00 02/18/24 08:02 Polyethylene Glycol 3350 17 Gm Packet PO Not Given DAILY HERI Prochlorperazine Edisylate 10 mg 02/12/24 20:01 Prochlorperazine 10 Mg/2 Ml Vial IVP Q6HR PRN Nausea / Vomiting Saliva Substitute 2 sprays 02/13/24 10:39 Saliva Stimulant [place] 44.3 Ml Bottle PO Q4H PRN Mouth Sore Pain Sodium Chloride 10 ml 02/12/24 19:54 Sodium Chloride Flush 0.9% 10 Ml Syringe IVP PRN PRN NEEDED PER PROVIDER ORDERS Sodium Chloride 10 ml 02/13/24 01:00 02/18/24 09:17 Sodium Chloride Flush 0.9% 10 Ml Syringe IVP 10 ml 0100,0900,1700 [facility] Administration Albuterol Sulf [Ventolin Hfa Inhaler] 2 puffs INH Q6H PRN 08/09/21 Fluticasone 110 Mcg [Flovent] 1 puffs INH BID 10/24/21 Alendronate [Fosamax] 70 mg PO Q7D 11/06/21 Amiodarone [Pacerone] 200 mg PO DAILY 11/06/21 Metoprolol Tartrate [Lopressor] 100 mg PO BID 11/06/21 hydroCHLOROthiazide [Hydrodiuril] 25 mg PO DAILY 11/06/21 Escitalopram [Lexapro] 10 mg PO DAILY 11/07/22 Nystatin [Mycostatin] 1 misc PO QID 02/13/24 Sulfamethox/Trimeth 800/160 [Bactrim Ds] 1 tab PO BID 02/13/24 Objective - Vital Signs/Intake & Output Reviewed Vital Signs: Yes Vital Signs: Vital Signs x48h Temp Pulse Resp BP BP Pulse Ox O2 Flow Rate 02/18/24 08:03 126/93 H 02/18/24 07:45 36.6 C 76 20 126/93 H 93 2 Intake & Output: Intake & Output 02/15/24 02/16/24 02/17/24 02/18/24 23:59 23:59 23:59 23:59 Intake Total 3481.25 960 1000 780 Output Total 366 918 0142 100 Balance 3381.25 760 -1400 680 - Objective General Appearance: positive: No acute distress, Other (She is receiving oxygen via nasal cannula) Eyes Bilateral: positive: Normal inspection ENT: positive: ENT inspection nml Respiratory: positive: Chest non-tender, No respiratory distress, Other (She is diminished in the lower bases bilaterally) Cardiovascular: positive: Regular rate & rhythm, No murmur, Tachycardia Abdomen: positive: Non-tender, No organomegaly, Nml bowel sounds, No distention Skin: positive: Color nml, No rash, Warm, Dry Extremities: positive: Non-tender, Full ROM Neurologic/Psychiatric: positive: Oriented x3, CN's nml (2-12) - Lab Results Fish Bones: 02/18/24 06:20 02/18/24 06:20 Other Labs: Lab Results x24hrs 02/18/24 02/18/24 Range/Units 06:20 06:20 WBC 14.9 H (4.8-10.8) x10^3/uL RBC 2.70 L (4.20-5.40) 10^6/uL Hgb 8.4 L (12.0-16.0) g/dL Hct 26.3 L (37.0-47.0) % MCV 97.4 (81.0-99.0) fL MCH 31.1 H (27.0-31.0) pg MCHC 31.9 L (32.0-36.0) g/dL RDW 18.6 H (12.0-15.0) % Plt Count 668 H (130-450) 10^3/uL MPV 9.9 (7.9-10.8) fL Neut # (Auto) 13.3 H (1.5-6.6) 10^3/uL Lymph # (Auto) 0.5 L (1.5-3.5) 10^3/uL [place] # (Auto) 0.7 (0.0-1.0) 10^3/uL Eos # (Auto) 0.0 (0.0-0.7) 10^3/uL Baso # (Auto) 0.0 (0.0-0.1) 10^3/uL Absolute Nucleated RBC 0.13 x10^3/uL Nucleated RBC % 0.9 /100WBC Sodium 141 (135-145) mmol/L Potassium 4.2 (3.5-4.5) mmol/L Chloride 106 (101-111) mmol/L Carbon Dioxide 28 (21-32) mmol/L Anion Gap 7.0 (6-13) BUN 44 H (6-20) mg/dL Creatinine 1.5 H (0.6-1.3) mg/dL Estimated GFR (MDRD) 33 L (>89) Glucose 116 H (74-104) mg/dL Calcium 8.1 L (8.5-10.3) mg/dL Phosphorus 2.4 L (2.5-5.0) mg/dL Magnesium 1.8 (1.7-2.3) mg/dL Albumin 2.6 L (3.2-5.5) g/dL Sepsis Event Note (H) - Evaluation Current Stage of Sepsis: Ruled out Assessment/Plan - Problem List (1) Acute hypoxic respiratory failure Impression: Multifactorial secondary to pneumonia, COPD exacerbation, volume overload as well as bilateral pleural effusions. Patient has a pleural effusion on the right that is moderate to large in size. At this point the patient does not wish to have a thoracentesis. She will likely need to go out of the hospital on oxygen (2) Pneumonia Impression: She has completed a course of antibiotic therapy (3) COPD exacerbation Impression: She does not tolerate prednisone. Will start weaning her Solu-Medrol over the next couple of days. (4) Adenocarcinoma of lung Impression: Currently under surveillance. No evidence of recurrent (5) Pubic ramus fracture Impression: Supportive care. Continue to work with physical therapy and Occupational Therapy. She will be going to rehab at discharge Qualifiers: Encounter type: initial encounter Fracture type: closed Laterality: right Qualified Code(s): S32.591A - Other specified fracture of right pubis, initial encounter for closed fracture (6) Persistent atrial fibrillation Impression: The patient has been somewhat tachycardic today. She does have a pacemaker in place. She has had a sinus tachycardia with rates sustaining between 110s and 120s. At this point no further workup in the last the tachycardia gets worse. EKG revealed a paced rhythm with a normal rate earlier in the day. Continue amiodarone with Eliquis for anticoagulation (8) Moderate major depression Impression: Continue home regimen (9) Thrush Impression: Continue nystatin swish and swallow (10) Anemia Impression: Stable (11) Hypomagnesemia Impression: She will be repleted with 1 g of magnesium sulfate today to try to get her magnesium level above 2.0 (12) Hypokalemia Impression: Her level is normal (13) Hyponatremia Impression: Resolved (14) Reactive thrombocytosis Impression: Likely reactive to her acute illness (15) Ambulatory dysfunction Impression: She will be pursuing subacute rehabilitation at discharge. Continue to work with physical therapy and Occupational Therapy Disposition: Inpatient hospitalization remains necessary. The patient will be pursuing subacute rehabilitation at discharge. Time spent: 35 minutes
[2024-02-18] MEDS: methylPREDNISolone SUCCINATE 40 MG/ML VIAL IVP SCH (21:54)
[2024-02-19 05:43] LABS: BASOPHILS % (AUTO) 0.1 %; HCT - HEMATOCRIT 24.2 % (37.0-47.0); HGB - HEMOGLOBIN 7.9 g/dL (12.0-16.0); LYMPHOCYTES % (AUTO) 2.8 %; MEAN CORPUSCULAR HEMOGLOBIN 31.3 pg (27.0-31.0); MEAN CORPUSCULAR HGB CONC 32.6 g/dL (32.0-36.0); MEAN PLATELET VOLUME 10.3 fL (7.9-10.8); MONOCYTES % (AUTO) 4.1 %; NEUTROPHILS % (AUTO) 89.3 %; PLT - PLATELET COUNT 614 10^3/uL (130-450); RED BLOOD COUNT 2.52 10^6/uL (4.20-5.40); RED CELL DISTRIBUTION WIDTH 18.9 % (12.0-15.0); WHITE BLOOD COUNT 14.8 x10^3/uL (4.8-10.8)
[2024-02-19 05:48] LABS: SLIDE REVIEW? Indicated
[2024-02-19 05:49] LABS: ABNORMAL LYMPHS % (MANUAL) 0 %; BAND NEUTROPHILS % (MANUAL) 0 %
[2024-02-19 05:55] LABS: ALBUMIN 2.4 g/dL (3.2-5.5); MAGNESIUM 1.7 mg/dL (1.7-2.3)
[2024-02-19 06:01] LABS: CALCIUM 8.1 mg/dL (8.5-10.3); CREATININE 1.3 mg/dL (0.6-1.3); PHOSPHORUS 2.8 mg/dL (2.5-5.0)
[2024-02-19 06:13] LABS: THYROID STIMULATING HORMONE 1.61 uIU/mL (0.34-5.60)
[2024-02-19 06:42] LABS: LYMPHOCYTES # (MANUAL) 0.3 10^3/uL (1.5-3.5); LYMPHOCYTES % (MANUAL) 2 %; METAMYELOCYTES % (MANUAL) 1 %; MONOCYTES # (MANUAL) 0.4 10^3/uL (0.0-1.0); MYELOCYTES % (MANUAL) 1 %; NEUTROPHILS # (MANUAL) 13.8 10^3/uL (1.5-6.6)
[2024-02-19 06:46] LABS: DIFFERENTIAL COMMENT MANUAL DIFFERENTIAL; PLATELET ESTIMATE, MANUAL NORMAL (130-450,000) (NORMAL); PLATELET MORPHOLOGY NORMAL APPEARANCE (NORMAL); RBC MORPHOLOGY (MULTIPLE) NORMAL APPEARANCE (NORMAL); WBC MORPHOLOGY (MULTIPLE) NORMAL APPEARANCE (NORMAL)
[2024-02-19] MEDS: FUROSEMIDE 40 MG/4 ML VIAL IVP SCH (08:27)
[2024-02-19 14:25] LABS: ALBUMIN 2.6 g/dL (3.2-5.5); BILIRUBIN,DIRECT 0.28 mg/dL (0.03-0.18); BILIRUBIN,TOTAL 0.8 mg/dL (0.2-1.0); TOTAL PROTEIN 5.3 g/dL (6.4-8.9)
--- NOTE | 2024-02-19 16:19 | PROVIDER PROGRESS NOTE ---
Subjective - Prog Note Date Prog Note Date: 02/19/24 Prog Note Time: 15:45 - Subjective Pt reports feeling: No change Subjective: Patient is an 83 year-old female with a PMH that includes adenocarcinoma of the lung, previously treated with Keytruda and radiation therapy. Overnight, the patient had some cardiac ectopy with PVCs and several runs of V- tach. During the episodes of V-tach, the staff stated that the patient experienced desaturations in the the 80s with some associated shortness of breath. Her last episode was ~0600 and she has not had any v-tach since. The patient is resting in her bed this morning and states she continues to feel better. She states that the swelling in her hands seems to have improved. She continues to be stable on 2 lpm of oxygen with a current saturation of 93%. Eliquis was placed on-hold yesterday in the event that thoracentesis becomes necessary. The patients daughter has been involved in the decision making at the patients request, and the daughter is expected to be onsite today. Today, the patient denies any chest pain, palpitations, abdominal pain, nausea, vomiting, diarrhea, fever, or chills. She has no urinary complaints. Her breathing is stable compared to yesterday. Objective - Vital Signs/Intake & Output Vital Signs: Vital Signs x48h Temp Pulse Resp BP BP Pulse Ox O2 Flow Rate 02/19/24 15:33 36.5 C 65 16 158/66 H 94 2 02/19/24 08:20 148/64 H Intake & Output: Intake & Output 02/16/24 02/17/24 02/18/24 02/19/24 23:59 23:59 23:59 23:59 Intake Total 960 1000 1252 640 Output Total 200 2400 100 Balance 760 -1400 1152 640 - Objective General Appearance: positive: No acute distress, Alert ENT: positive: ENT inspection nml Neck: positive: Nml inspection Respiratory: positive: Chest non-tender, No respiratory distress Cardiovascular: positive: Regular rate & rhythm, No murmur, No gallop Abdomen: positive: Non-tender, No organomegaly, Nml bowel sounds, No distention Back: positive: Nml inspection Skin: positive: Color nml Extremities: positive: Pedal edema Neurologic/Psychiatric: positive: Oriented x3 (Bilateral 1+ pedal) - Lab Results Fish Bones: 02/19/24 05:16 02/19/24 05:16 Other Labs: Lab Results x24hrs 02/19/24 02/19/24 02/19/24 Range/Units 14:00 05:16 05:16 WBC 14.8 H (4.8-10.8) x10^3/uL RBC 2.52 L (4.20-5.40) 10^6/uL Hgb 7.9 L (12.0-16.0) g/dL Hct 24.2 L (37.0-47.0) % MCV 96.0 (81.0-99.0) fL MCH 31.3 H (27.0-31.0) pg MCHC 32.6 (32.0-36.0) g/dL RDW 18.9 H (12.0-15.0) % Plt Count 614 H (130-450) 10^3/uL MPV 10.3 (7.9-10.8) fL Neut # (Auto) Not Reportable Lymph # (Auto) Not Reportable [place] # (Auto) Not Reportable Eos # (Auto) Not Reportable Baso # (Auto) Not Reportable Absolute Nucleated RBC Not Reportable Total Counted 100 Band Neuts % (Manual) 0 (0 - 10) % Abnorm Lymph % (Manual) 0 % Metamyelocytes % 1 H ( - 0) % Myelocytes % 1 H ( - 0) % Nucleated RBC % Not Reportable Neutrophils # (Manual) 13.8 H (1.5-6.6) 10^3/uL Lymphocytes # (Manual) 0.3 L (1.5-3.5) 10^3/uL Monocytes # (Manual) 0.4 (0.0-1.0) 10^3/uL Eosinophils # (Manual) 0.0 (0-0.7) 10^3/uL Basophils # (Manual) 0.0 (0-0.1) 10^3/uL Differential Comment MANUAL DIFFERENTIAL Manual Slide Review Indicated WBC Morphology NORMAL APPEARANCE (NORMAL) Platelet Estimate NORMAL (130-450,000) (NORMAL) Platelet Morphology NORMAL APPEARANCE (NORMAL) RBC Morph Micro Appear NORMAL APPEARANCE (NORMAL) Sodium 140 (135-145) mmol/L Potassium 4.0 (3.5-4.5) mmol/L Chloride 105 (101-111) mmol/L Carbon Dioxide 30 (21-32) mmol/L Anion Gap 5.0 L (6-13) BUN 46 H (6-20) mg/dL Creatinine 1.3 (0.6-1.3) mg/dL Estimated GFR (MDRD) 39 L (>89) Glucose 116 H (74-104) mg/dL Calcium 8.1 L (8.5-10.3) mg/dL Phosphorus 2.8 (2.5-5.0) mg/dL Magnesium 1.7 (1.7-2.3) mg/dL Total Bilirubin 0.8 (0.2-1.0) mg/dL Direct Bilirubin 0.28 H (0.03-0.18) mg/dL AST 111 H (10-42) IU/L ALT 182 H (10-60) IU/L Alkaline Phosphatase 121 (42-121) IU/L Total Protein 5.3 L (6.4-8.9) g/dL Albumin 2.6 L 2.4 L (3.2-5.5) g/dL Globulin 2.7 (2.1-4.2) g/dL TSH 1.61 (0.34-5.60) uIU/mL ABX Reporting Has patient been on IV antibiotics over the past 48 hours?: Yes Sepsis Event Note (H) - Evaluation Current Stage of Sepsis: Ruled out Assessment/Plan - Problem List (1) Acute hypoxic respiratory failure Impression: Secondary to bilateral pleural effusions. (2) Pleural effusion Impression: Consult with IR regarding thoracentesis. Discussed this with the patient and family and they are in agreement to proceed. (3) Nonsustained monomorphic ventricular tachycardia Impression: Patient had multiple episodes of v-tach overnight. She has not had any episodes since this morning. Pt is on amiodarone and metoprolol. Discussed thoracentesis with the patient and family and they would like to pursue this. IR consult pending. Pt has been previously seen by [facility] [place] cardiology. Spoke with the clinic today and they will have a physician review the patients chart and consult regarding the v-tach. (4) Pneumonia Impression: She has completed antibiotic therapy (5) COPD exacerbation Impression: Pt does not tolerate prednisone and is being tapered off of solu-medrol (6) Adenocarcinoma of lung Impression: Under surveillance with no evidence of recurrence (7) Anemia Impression: Stable (8) Pubic ramus fracture Impression: Continue physical therapy and occupational therapy. Qualifiers: Encounter type: initial encounter Fracture type: closed Laterality: right Qualified Code(s): S32.591A - Other specified fracture of right pubis, initial encounter for closed fracture (9) Atrial fibrillation Impression: Stable (10) Hypokalemia Impression: K is normal today. Continue to monitor. (11) Hypomagnesemia Impression: Magnesium this morning is 1.7. Continue to monitor and treat if necessary. (12) Hyponatremia Impression: Sodium is normal today. Continue to monitor. 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 (14) Reactive thrombocytosis Impression: Likely reactive due to her acute illness. (15) Thrush Impression: Continue nystatin swish and swallow (16) Ambulatory dysfunction Impression: Patient will be going to subacute rehab at discharge. Continue physical and occupational therapy.
[2024-02-20 05:36] LABS: BASOPHILS % (AUTO) 0.1 %; LYMPHOCYTES % (AUTO) 2.9 %; MEAN CORPUSCULAR HEMOGLOBIN 31.1 pg (27.0-31.0); MEAN CORPUSCULAR VOLUME 97.3 fL (81.0-99.0); MEAN PLATELET VOLUME 10.5 fL (7.9-10.8); MONOCYTES % (AUTO) 4.3 %; NEUTROPHILS % (AUTO) 87.6 %; PLT - PLATELET COUNT 569 10^3/uL (130-450); RED BLOOD COUNT 2.57 10^6/uL (4.20-5.40); RED CELL DISTRIBUTION WIDTH 19.5 % (12.0-15.0); WHITE BLOOD COUNT 13.4 x10^3/uL (4.8-10.8)
[2024-02-20 05:45] LABS: ABNORMAL LYMPHS % (MANUAL) 0 %; BAND NEUTROPHILS % (MANUAL) 0 %
[2024-02-20 05:48] LABS: PARTIAL THROMBOPLASTIN TIME 24.5 secs (24.9-33.3)
[2024-02-20 05:53] LABS: INR 1.3 (0.8-1.2); PT - PROTHROMBIN TIME 13.8 secs (9.9-12.6)
[2024-02-20 05:55] LABS: ALBUMIN 2.3 g/dL (3.2-5.5); CALCIUM 8.1 mg/dL (8.5-10.3); CREATININE 1.2 mg/dL (0.6-1.3); MAGNESIUM 1.7 mg/dL (1.7-2.3); PHOSPHORUS 3.4 mg/dL (2.5-5.0)
[2024-02-20 06:20] LABS: LYMPHOCYTES # (MANUAL) 0.3 10^3/uL (1.5-3.5); LYMPHOCYTES % (MANUAL) 2 %; METAMYELOCYTES % (MANUAL) 1 %; MYELOCYTES % (MANUAL) 2 %; NEUTROPHILS # (MANUAL) 12.7 10^3/uL (1.5-6.6)
[2024-02-20 06:21] LABS: DIFFERENTIAL COMMENT MANUAL DIFFERENTIAL; PLATELET ESTIMATE, MANUAL INCREASED (>450,000) (NORMAL); PLATELET MORPHOLOGY 1+ LARGE PLATELETS (NORMAL); RBC MORPHOLOGY (MULTIPLE) NORMAL APPEARANCE (NORMAL); WBC MORPHOLOGY (MULTIPLE) NORMAL APPEARANCE (NORMAL)
[2024-02-20] MEDS: methylPREDNISolone SUCCINATE 40 MG/ML VIAL IVP SCH (08:38)
[2024-02-20] MEDS: LORazepam 0.5 MG TABLET PO SCH (12:47)
--- NOTE | 2024-02-20 14:13 | PROVIDER PROGRESS NOTE ---
Subjective - Prog Note Date Prog Note Date: 02/20/24 Prog Note Time: 14:30 - Subjective Pt reports feeling: No change Subjective: The patient continues to be stable and had no issues overnight per staff. She had no episodes of cardiac ectopy or v-tach overnight. She is able to ambulate a short distance with assistance, but quickly becomes short of breath when standing for a brief period of time. She expressed some significant anxiety about the expected thoracentesis and was given 0.5 of Ativan. She continues to be oxygen dependent on 2 lpm via nasal cannula with oxygen saturations around 93%. She denies any chest pain, palpitations, dizziness, ABD pain, nausea, vomiting, fever, or chills. The patient was evaluated by IR for possible thoracentesis, but ultrasound evaluation of her pleural effusion revealed that they were too small to drain. The patients daughters plan to come in today and visit her. Plan is to pursue transfer to subacute rehab facility. Objective - Vital Signs/Intake & Output Vital Signs: Vital Signs x48h Temp Pulse Pulse Resp BP BP Pulse Ox 02/20/24 13:00 36.4 C L 63 16 162/71 H 93 02/20/24 09:00 182/84 H 02/20/24 08:55 182/84 H 02/20/24 07:15 02/20/24 07:13 64 18 02/20/24 07:07 63 182/84 H 02/20/24 06:27 187/97 H O2 Flow Rate 02/20/24 13:00 2 02/20/24 09:00 02/20/24 08:55 02/20/24 07:15 2 02/20/24 07:13 2 02/20/24 07:07 02/20/24 06:27 Intake & Output: Intake & Output 02/17/24 02/18/24 02/19/24 02/20/24 23:59 23:59 23:59 23:59 Intake Total 1000 1252 960 200 Output Total 2400 825 108 0937 Balance -1400 1152 760 -1800 - Objective General Appearance: positive: No acute distress, Anxious Eyes Bilateral: positive: Normal inspection ENT: positive: ENT inspection nml Neck: positive: Nml inspection Respiratory: positive: Chest non-tender, No respiratory distress, Other (Lung sounds diminished in the bases bilateral.) Cardiovascular: positive: Regular rate & rhythm, No murmur, No gallop Abdomen: positive: Non-tender, No organomegaly, Nml bowel sounds, No distention Back: positive: Nml inspection Skin: positive: Color nml, Warm Neurologic/Psychiatric: positive: Oriented x3 - Lab Results Fish Bones: 02/20/24 05:05 02/20/24 05:05 Other Labs: Lab Results x24hrs 02/20/24 02/20/24 02/20/24 Range/Units 05:05 05:05 05:05 WBC (4.8-10.8) x10^3/uL RBC (4.20-5.40) 10^6/uL Hgb (12.0-16.0) g/dL Hct (37.0-47.0) % MCV (81.0-99.0) fL MCH (27.0-31.0) pg MCHC (32.0-36.0) g/dL RDW (12.0-15.0) % Plt Count (130-450) 10^3/uL MPV (7.9-10.8) fL Neut # (Auto) Lymph # (Auto) [place] # (Auto) Eos # (Auto) Baso # (Auto) Absolute Nucleated RBC Total Counted Band Neuts % (Manual) (0 - 10) % Abnorm Lymph % (Manual) % Metamyelocytes % ( - 0) % Myelocytes % ( - 0) % Nucleated RBC % Neutrophils # (Manual) (1.5-6.6) 10^3/uL Lymphocytes # (Manual) (1.5-3.5) 10^3/uL Monocytes # (Manual) (0.0-1.0) 10^3/uL Eosinophils # (Manual) (0-0.7) 10^3/uL Basophils # (Manual) (0-0.1) 10^3/uL Differential Comment WBC Morphology (NORMAL) Platelet Estimate (NORMAL) Platelet Morphology (NORMAL) RBC Morph Micro Appear (NORMAL) PT 13.8 H (9.9-12.6) secs INR 1.3 H (0.8-1.2) APTT 24.5 L (24.9-33.3) secs Sodium 142 (135-145) mmol/L Potassium 4.0 (3.5-4.5) mmol/L Chloride 105 (101-111) mmol/L Carbon Dioxide 31 (21-32) mmol/L Anion Gap 6.0 (6-13) BUN 53 H (6-20) mg/dL Creatinine 1.2 (0.6-1.3) mg/dL Estimated GFR (MDRD) 43 L (>89) Glucose 124 H (74-104) mg/dL Calcium 8.1 L (8.5-10.3) mg/dL Phosphorus 3.4 (2.5-5.0) mg/dL Magnesium 1.7 (1.7-2.3) mg/dL Total Bilirubin (0.2-1.0) mg/dL Direct Bilirubin (0.03-0.18) mg/dL AST (10-42) IU/L ALT (10-60) IU/L Alkaline Phosphatase (42-121) IU/L Lactate Dehydrogenase 274 H (140-271) IU/L Total Protein (6.4-8.9) g/dL Albumin 2.3 L (3.2-5.5) g/dL Globulin (2.1-4.2) g/dL 02/20/24 02/19/24 Range/Units 05:05 14:00 WBC 13.4 H (4.8-10.8) x10^3/uL RBC 2.57 L (4.20-5.40) 10^6/uL Hgb 8.0 L (12.0-16.0) g/dL Hct 25.0 L (37.0-47.0) % MCV 97.3 (81.0-99.0) fL MCH 31.1 H (27.0-31.0) pg MCHC 32.0 (32.0-36.0) g/dL RDW 19.5 H (12.0-15.0) % Plt Count 569 H (130-450) 10^3/uL MPV 10.5 (7.9-10.8) fL Neut # (Auto) Not Reportable Lymph # (Auto) Not Reportable [place] # (Auto) Not Reportable Eos # (Auto) Not Reportable Baso # (Auto) Not Reportable Absolute Nucleated RBC Not Reportable Total Counted 100 Band Neuts % (Manual) 0 (0 - 10) % Abnorm Lymph % (Manual) 0 % Metamyelocytes % 1 H ( - 0) % Myelocytes % 2 H ( - 0) % Nucleated RBC % Not Reportable Neutrophils # (Manual) 12.7 H (1.5-6.6) 10^3/uL Lymphocytes # (Manual) 0.3 L (1.5-3.5) 10^3/uL Monocytes # (Manual) 0.0 (0.0-1.0) 10^3/uL Eosinophils # (Manual) 0.0 (0-0.7) 10^3/uL Basophils # (Manual) 0.0 (0-0.1) 10^3/uL Differential Comment MANUAL DIFFERENTIAL WBC Morphology NORMAL APPEARANCE (NORMAL) Platelet Estimate INCREASED (>450,000) (NORMAL) Platelet Morphology 1+ LARGE PLATELETS (NORMAL) RBC Morph Micro Appear NORMAL APPEARANCE (NORMAL) PT (9.9-12.6) secs INR (0.8-1.2) APTT (24.9-33.3) secs Sodium (135-145) mmol/L Potassium (3.5-4.5) mmol/L Chloride (101-111) mmol/L Carbon Dioxide (21-32) mmol/L Anion Gap (6-13) BUN (6-20) mg/dL Creatinine (0.6-1.3) mg/dL Estimated GFR (MDRD) (>89) Glucose (74-104) mg/dL Calcium (8.5-10.3) mg/dL Phosphorus (2.5-5.0) mg/dL Magnesium (1.7-2.3) mg/dL Total Bilirubin 0.8 (0.2-1.0) mg/dL Direct Bilirubin 0.28 H (0.03-0.18) mg/dL AST 111 H (10-42) IU/L ALT 182 H (10-60) IU/L Alkaline Phosphatase 121 (42-121) IU/L Lactate Dehydrogenase (140-271) IU/L Total Protein 5.3 L (6.4-8.9) g/dL Albumin 2.6 L (3.2-5.5) g/dL Globulin 2.7 (2.1-4.2) g/dL ABX Reporting Has patient been on IV antibiotics over the past 48 hours?: No Sepsis Event Note (H) - Evaluation Current Stage of Sepsis: Ruled out Assessment/Plan - Problem List (1) Acute hypoxic respiratory failure Impression: Secondary to bilateral pleural effusions. She continues to be on oxygen via nasal cannula at 2 lpm with oxygen saturations around 93%. (2) Pleural effusion Impression: IR performed an ultrasound to evaluate the pleural effusion for thoracentesis and they do not feel that the volume of pleural effusion does not warrant the proceedure. Plan is to pursue transitioning the pt to a rehab facility when she is stable enough to be transferred. (3) Nonsustained monomorphic ventricular tachycardia Impression: Pt had no episodes of ectopy or v-tach overnight. Seh continues on amiodarone and metoprolol. (4) Pneumonia Impression: She has completed antibiotic therapy. (5) COPD exacerbation Impression: Last dose of solu-medrol was last night. (6) Adenocarcinoma of lung Impression: Under surveillance with no evidence of recurrence. (7) Anemia Impression: Stable (8) Pubic ramus fracture Impression: Continue physical therapy and occupational therapy. Qualifiers: Encounter type: initial encounter Fracture type: closed Laterality: right Qualified Code(s): S32.591A - Other specified fracture of right pubis, initial encounter for closed fracture (9) Atrial fibrillation Impression: Stable (10) Hypokalemia Impression: Potassium is normal today. Continue to monitor. (11) Hypomagnesemia Impression: Magnesium continues to be stable. Monitor and treat if necessary. (12) Hyponatremia Impression: Sodium continues to be normal. Monitor and treat as needed. 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 (14) Reactive thrombocytosis Impression: Likely reactive due to her acute illness. (15) Thrush Impression: Continue nystatin swish and swallow. (16) Ambulatory dysfunction Impression: Pt will be going to subacute rehab at discharge. Continue physical and occupat ional therapy.
--- NOTE | 2024-02-20 14:37 | Ultrasound Report ---
PROCEDURE: Chest INDICATIONS: pleural effusion TECHNIQUE: Real-time scanning was performed, and a suitable site was marked by the registered mail clerk (if applicable) f or thoracentesis to be performed by the referring clinician. COMPARISON: 02/18/2024 FINDINGS/IMPRESSION: Small bilateral pleural effusions. Not enough for thoracentesis. Reviewed by: Ashwin Cole MD on 02/20/2024 2:36 PM PDT Approved by: Ashwin Cole MD on 02/20/2024 2:36 PM PDT Station ID: [id number]
[2024-02-21 05:57] LABS: BASOPHILS % (AUTO) 0.1 %; EOSINOPHILS % (AUTO) 0.4 %; HCT - HEMATOCRIT 27.1 % (37.0-47.0); HGB - HEMOGLOBIN 8.4 g/dL (12.0-16.0); MEAN CORPUSCULAR HEMOGLOBIN 30.5 pg (27.0-31.0); MEAN CORPUSCULAR VOLUME 98.5 fL (81.0-99.0); MEAN PLATELET VOLUME 10.7 fL (7.9-10.8); MONOCYTES % (AUTO) 5.7 %; NEUTROPHILS % (AUTO) 84.3 %; PLT - PLATELET COUNT 542 10^3/uL (130-450); RED BLOOD COUNT 2.75 10^6/uL (4.20-5.40); RED CELL DISTRIBUTION WIDTH 20.3 % (12.0-15.0); WHITE BLOOD COUNT 13.8 x10^3/uL (4.8-10.8)
[2024-02-21 06:05] LABS: ALBUMIN 2.5 g/dL (3.2-5.5); MAGNESIUM 1.6 mg/dL (1.7-2.3)
[2024-02-21 06:06] LABS: ABNORMAL LYMPHS % (MANUAL) 0 %
[2024-02-21 06:10] LABS: CALCIUM 8.3 mg/dL (8.5-10.3); PHOSPHORUS 3.8 mg/dL (2.5-5.0); POTASSIUM 3.9 mmol/L (3.5-4.5)
[2024-02-21 07:28] LABS: BAND NEUTROPHILS % (MANUAL) 2 %; LYMPHOCYTES % (MANUAL) 7 %; METAMYELOCYTES % (MANUAL) 2 %; MONOCYTES # (MANUAL) 0.3 10^3/uL (0.0-1.0); NEUTROPHILS # (MANUAL) 12.3 10^3/uL (1.5-6.6); NUCLEATED RBC (MANUAL) 1 %
[2024-02-21 07:37] LABS: PLATELET ESTIMATE, MANUAL INCREASED (>450,000) (NORMAL); PLATELET MORPHOLOGY NORMAL APPEARANCE (NORMAL); RBC MORPHOLOGY (MULTIPLE) 3+ ANISOCYTOSIS (NORMAL); WBC MORPHOLOGY (MULTIPLE) NORMAL APPEARANCE (NORMAL)
[2024-02-21 07:38] LABS: DIFFERENTIAL COMMENT MANUAL DIFFERENTIAL
[2024-02-21] MEDS: APIXABAN 2.5 MG TABLET PO SCH (08:43)
[2024-02-21] MEDS: AMIODARONE 200 MG TABLET PO SCH (08:43)
[2024-02-21] MEDS: FUROSEMIDE 40 MG/4 ML VIAL IVP SCH (08:44)
--- NOTE | 2024-02-21 09:54 | Discharge Plan ---
Discharge Plan Problem Reviewed?: Yes Disposition: 02 Transfer Acute Care Hosp Condition: Fair Diet: Cardiac Activity Restrictions: Activity as Tolerated Assessment: 1. Acute hypoxic respiratory failure Multifactorial in nature secondary to pneumonia, underlying COPD, bilateral pleural effusions and decompensated heart failure. The patient is still requiring oxygen. She may be developing chronic respiratory failure. 2. Nonsustained ventricular tachycardia The patient is having increasing episodes of nonsustained V. tach over her pacemaker. I spoke to the patient's daughter today who would like to pursue [facility] for cardiology evaluation. She has graciously been accepted at [facility] by Dr. Douglas Samson. The hospitalist service accepted her as well. The accepting hospitalist with Dr. Mike Nicole. She will be transferred to [facility] as soon as a bed is found. Dr. Samson recommended increasing her amiodarone and loading her with 400 mg twice daily for now until we can get her transferred. 3. Pleural effusion Thoracentesis was ordered due to her lack of improvement and continued hypoxia. Her Eliquis was held and yesterday they were going to perform her thoracentesis. However ultrasound revealed that there was not enough fluid to tap. Her pleural effusions have improved with diuresis 4. Pneumonia She completed a course of IV antibiotic therapy 5. COPD exacerbation The patient was quite decompensated right after admission. She responded to IV Solu-Medrol and aggressive breathing treatments. She has been weaned off of steroids at this point 6. Adenocarcinoma of the lung Status post radiation therapy. She did have issues after radiation with pneumonitis in the distant past. This is long since resolved. Her cancer has been under surveillance 7. Anemia Stable 8. Pubic ramus fracture, pathologic due to ground-level fall This happened about a week before admission. She has been doing well with physical therapy. The plan was to pursue subacute rehabilitation at discharge. 9. Persistent atrial fibrillation She has not had issues with atrial fibrillation during this hospitalization. She is maintained on amiodarone 200 mg daily and metoprolol 100 mg twice daily. She has been having issues with ventricular tachycardia and we are pursuing transfer as above 10. Hyponatremia; hypokalemia; hypophosphatemia; hypomagnesemia Sodium level has normalized. The rest of her electrolyte abnormalities have resolved with treatment. I continue to supplement her potassium and magnesium to keep her magnesium level above 2 and her potassium level above 4 11. Moderate major depression Continue escitalopram 10 mg daily 12. Reactive thrombocytosis Likely reactive to her acute illness 13. Thrush Continue nystatin swish and swallow 14. Sarcopenia with subsequent ambulatory dysfunction She should continue to work with physical therapy and Occupational Therapy. We were planning a transfer to subacute rehabilitation at discharge. Will defer to [place] [facility] on setting this up when she recuperates from this acute illness Additional Instructions or Follow Up instructions: The patient and family are counseled as to the diagnosis and need for admission. This document was made in part using voice recognition software, while efforts are made to proofread this document, sound alike an grammatical errors may occur. No Smoking: If you smoke, Please STOP! Call for help. Follow-up with: Cheryl Delgado ARNP [Primary Care Provider] -
[2024-02-21] MEDS ORDERED: MAGNESIUM SULFATE 2 GM in SODIUM CHLORIDE 0.9% 50 ML IV ONE (10:08)
--- NOTE | 2024-02-21 10:15 | DISCHARGE SUMMARY ---
Discharge Summary Admit Date: 02/12/24 Discharging Provider: Fabiana Sethi PA-C Primary Care Provider: Dr Cheryl Delgado Code Status: Do Not Attempt Resuscitation Condition at Discharge: Fair Discharge Disposition: 02 Transfer Acute Care Hosp Discharge Facility Name: [facility] - DIAGNOSES Discharge Diagnoses with Status of Each Condition: 1. Acute hypoxic respiratory failure Multifactorial in nature secondary to pneumonia, underlying COPD, bilateral pleural effusions and decompensated heart failure. The patient is still requiring oxygen. She may be developing chronic respiratory failure. 2. Nonsustained ventricular tachycardia The patient is having increasing episodes of nonsustained V. tach over her pacemaker. I spoke to the patient's daughter today who would like to pursue transfer for cardiology evaluation. She has graciously been accepted at [facility] by Dr. Douglas Samson. The hospitalist service accepted her as well. The accepting hospitalist with Dr. Mike Nicole. She will be transf erred to [facility] as soon as a bed is found. Dr. Samson recommended increasing her amiodarone and loading her with 400 mg twice daily for now until we can get her transferred. 3. Pleural effusion Thoracentesis was ordered due to her lack of improvement and continued hypoxia. Her Eliquis was held and yesterday they were going to perform her thoracentesis. However ultrasound revealed that there was not enough fluid to tap. Her pleural effusions have improved with diuresis 4. Pneumonia She completed a course of IV antibiotic therapy 5. COPD exacerbation The patient was quite decompensated right after admission. She responded to IV Solu-Medrol and aggressive breathing treatments. She has been weaned off of steroids at this point 6. Adenocarcinoma of the lung Status post radiation therapy. She did have issues after radiation with pneumonitis in the distant past. This is long since resolved. Her cancer has been under surveillance 7. Anemia Stable 8. Pubic ramus fracture, pathologic due to ground-level fall This happened about a week before admission. She has been doing well with physical therapy. The plan was to pursue subacute rehabilitation at discharge. 9. Persistent atrial fibrillation She has not had issues with atrial fibrillation during this hospitalization. She is maintained on amiodarone 200 mg daily and metoprolol 100 mg twice daily. She has been having issues with ventricular tachycardia and we are pursuing transfer as above 10. Hyponatremia; hypokalemia; hypophosphatemia; hypomagnesemia Sodium level has normalized. The rest of her electrolyte abnormalities have resolved with treatment. I continue to supplement her potassium and magnesium to keep her magnesium level above 2 and her potassium level above 4 11. Moderate major depression Continue escitalopram 10 mg daily 12. Reactive thrombocytosis Likely reactive to her acute illness 13. Thrush Continue nystatin swish and swallow 14. Sarcopenia with subsequent ambulatory dysfunction She should continue to work with physical therapy and Occupational Therapy. We were planning a transfer to subacute rehabilitation at discharge. Will defer to Peter Orellana on setting this up when she recuperates from this acute illness - HPI History of Present Illness: From the admission HP: [id number] c lung cancer and associated pneumonitis, afib on Eliquis and HTN and COPD who had a fall a week with pubic fracture and was sent home with oral opioids and developed a cough approx 4-5 days ago who presents to the ED now with SOB. Patient reports being seen and started on abx cephalexin but did not get better. She reports associated progressive weakness and loss of appetite. She denies constipation. no n/v/d but positive loose stool. No fever. No URI. No chest pain. No palpitation. No dysuria. No rash. No swelling. review of EMR noted that patient is currently off chemo for lung cancer 2/2 pneumonitis. Here in the ED, patient is noted for leukocytosis along with CXR on ED prelim read citing RLL infiltrate concerning for RLL PNA. - HOSPITAL COURSE Hospital Course: The patient was admitted to the hospital. She was found to be hypoxic and was requiring oxygen supplementation. She was found to have an underlying pneumonia. She was initially started on IV ceftriaxone and doxycycline. However due to lack of improvement her antibiotic coverage was broadened and her ceftriaxone was stopped and transition to Zosyn. The day after admission the patient had issues with significant wheezing and was felt to be having a COPD exacerbation. IV Solu-Medrol was added to her regimen. In spite of this she was slow to improve. Her wheezing improved and it was felt that her pneumonia was improving as well. Repeat imaging revealed interim development of volume overload as well as bilateral pleural effusions. She did have a 2D echocardiogram performed which revealed a preserved EF of 65 to 70%. She was noted to have grade 2 diastolic dysfunction with mild right ventricular enlargement. RV function was normal. She had mildly abnormal right heart pressures and the RVSP at rest was 40 mmHg. The patient was then started on IV Lasix and we have gently diuresed her while keeping a close eye on her renal function. On the day of discharge she is on 40 mg of IV Lasix twice daily and seems to be tolerating it. For the past several days the patient has had issues on telemetry with episodes of nonsustained ventricular tachycardia breaking over her paced rhythm. Initially this was felt to possibly be driven by her pleural effusions and hypoxia and a thoracentesis was ordered. She was on Eliquis which had to be held and by the time the thoracentesis was going to be performed ultrasound revealed that she did not have enough fluid to safely drain. Overnight the patient developed increasing episodes of ventricular tachycardia with longer runs of V. tach. I spoke to the patient's daughter this morning who is quite concerned and would like to pursue transfer for cardiology evaluation. I spoke to Dr. Douglas Samson (cardiology) as well as Dr. Mike Nicole (hospitalist) and they have both graciously agreed to accept the patient in transfer. She will be transferred to their facility as soon as a bed is found. Goals of care have been discussed with the patient. She is followed by palliative medicine that she established with when she had her lung cancer. She is continue to follow with them for quite some time. The patient has a POLST that indicates that she is a DNR with limited interventions. At this point she desires to get better. She would be agreeable to having an AICD placed. She just does not want chest compressions or intubation should her condition continue to decline. Otherwise she would like all treatment up until that point - ALLERGIES Allergies/Adverse Reactions: Allergies Allergy/AdvReac Type Severity Reaction Status Date / Time No Known Drug Allergies Allergy Verified 02/12/24 17:07 - MEDICATIONS Home Medications: Ambulatory Orders Medication Instructions Recorded Confirmed Fluticasone 110 Mcg [Flovent] 1 puffs INH BID 10/24/21 02/13/24 Alendronate [Fosamax] 70 mg PO Q7D 11/06/21 02/13/24 Metoprolol Tartrate [Lopressor] 100 mg PO BID 11/06/21 02/13/24 Escitalopram [Lexapro] 10 mg PO DAILY 11/07/22 02/13/24 Amiodarone [Pacerone] 400 mg PO BID tab 02/21/24 Apixaban [Eliquis] 2.5 mg PO BID tab 02/21/24 Benzonatate [Tessalon] 100 mg PO TID PRN cap 02/21/24 Docusate Sodium 250Mg Capsule 250 - 500 mg PO DAILY cap 02/21/24 [Colace 250Mg Capsule] FUROSEMIDE INJ 40mg VIAL [LASIX 40 mg IVP BIDDIURETIC ml 02/21/24 INJ 40 mg VIAL] Ferrous Sulfate [Feosol] 325 mg PO BIDWM tab 02/21/24 Heparin Flush [Heparin Sodium 300 - 500 unit IVP PRN PRN ml 02/21/24 (Beef Lung)] Heparin Flush [Heparin Sodium] 30 - 50 unit IVP PRN PRN ml 02/21/24 Ipratropium/Albuterol [Duoneb] 3 ml INH Q6HR PRN ml 02/21/24 Loperamide [Imodium] 2 mg PO QID PRN cap 02/21/24 Metoprolol Tartrate [Lopressor] 100 mg PO BID tab 02/21/24 Multivitamin W/Minerals [Theragran 1 tab PO DAILYWM tab 02/21/24 M] Ondansetron Inj [Zofran Inj] 4 mg IVP Q6HR PRN ml 02/21/24 Potassium Chloride Oral Soln 20 meq PO DAILYWM ea 02/21/24 [Potassium Chloride] Prochlorperazine Inj [Compazine 10 mg IVP Q6HR PRN ml 02/21/24 Inj] Saliva Stimulant [place] [Biotene 2 sprays PO Q4H PRN each 02/21/24 Moisturizing Mouth [place]] Sodium Chloride Flush 0.9% [Normal 10 ml IVP 0100,0900,1700 ml 02/21/24 Saline Flush 0.9%] Sodium Chloride Flush 0.9% [Normal 10 ml IVP PRN PRN ml 02/21/24 Saline Flush 0.9%] oxyCODONE [Roxicodone] 2.5 mg PO Q6H PRN tab 02/21/24 polyethylene glycoL 3350 [Miralax] 17 gm PO DAILY packet 02/21/24 - PHYSICAL EXAM AT DISCHARGE General Appearance: positive: No acute distress, Other (She is receiving oxygen via nasal cannula) Eyes Bilateral: positive: Normal inspection ENT: positive: ENT inspection nml Neck: positive: Nml inspection Respiratory: positive: Chest non-tender, Other (She is diminished in the lower bases worse on the right than the left.) Cardiovascular: positive: Regular rate & rhythm, No murmur, No gallop. negative: Friction rub Abdomen: positive: Non-tender, No organomegaly, Nml bowel sounds, No distention Skin: positive: Color nml, No rash, Warm, Dry Extremities: positive: Non-tender, Other (She is developing some dependent edema in her arms and hands. She also has some edema in her lower extremities bilaterally) Neurologic/Psychiatric: positive: Oriented x3, CN's nml (2-12) - LABS Result Diagrams: 02/21/24 05:08 02/21/24 05:08 - SEPSIS Current Stage of Sepsis: Ruled out - FOLLOW UP Follow Up: The patient is being transferred to [facility]. She should follow-up with her outpatient primary care provider and senior applications developer when she gets out of the hospital. She likely will need subacute rehabilitation prior to transferring home - TIME SPENT Time Spent in Discharge (Minutes): 45
--- NOTE | 2024-02-21 10:28 | PROVIDER PROGRESS NOTE ---
Subjective - Prog Note Date Prog Note Date: 02/21/24 Prog Note Time: 10:30 - Subjective Pt reports feeling: No change Subjective: The patient had increasing episodes of V. tach overnight. She has been largely asymptomatic and at times she was sleeping when this was going on. Discussions were had with the patient's daughter who would like us to pursue transfer for cardiology evaluation. She has been accepted at [facility] and will be transferred to soon as they have a bed available. Today when I saw the patient she was awake and alert and answer questions appropriately. She said no fever or chills. No chest pain. She does not have any significant shortness of breath with the oxygen in place. She does not have a cough. She says at times she feels like she has some fluttering in her chest and can feel the palpitations. Otherwise she has had no chest pressure. No nausea vomiting or diarrhea. No urinary complaints Objective - Vital Signs/Intake & Output Vital Signs: Vital Signs x48h Temp Pulse Pulse Resp BP BP Pulse Ox 02/21/24 08:46 172/80 H 02/21/24 07:58 36.8 C 64 16 172/80 H 92 02/21/24 07:15 78 18 02/21/24 05:00 36.5 C 74 17 166/70 H 93 O2 Flow Rate 02/21/24 08:46 02/21/24 07:58 2 02/21/24 07:15 2 02/21/24 05:00 2 Intake & Output: Intake & Output 02/18/24 02/19/24 02/20/24 02/21/24 23:59 23:59 23:59 23:59 Intake Total 1252 960 470 435 Output Total 963 025 1661 600 Balance 1152 760 -1630 -165 - Lab Results Fish Bones: 02/21/24 05:08 02/21/24 05:08 Other Labs: Lab Results x24hrs 02/21/24 02/21/24 Range/Units 05:08 05:08 WBC 13.8 H (4.8-10.8) x10^3/uL RBC 2.75 L (4.20-5.40) 10^6/uL Hgb 8.4 L (12.0-16.0) g/dL Hct 27.1 L (37.0-47.0) % MCV 98.5 (81.0-99.0) fL MCH 30.5 (27.0-31.0) pg MCHC 31.0 L (32.0-36.0) g/dL RDW 20.3 H (12.0-15.0) % Plt Count 542 H (130-450) 10^3/uL MPV 10.7 (7.9-10.8) fL Neut # (Auto) Not Reportable Lymph # (Auto) Not Reportable Weld # (Auto) Not Reportable Eos # (Auto) Not Reportable Baso # (Auto) Not Reportable Absolute Nucleated RBC Not Reportable Total Counted 100 Band Neuts % (Manual) 2 (0 - 10) % Abnorm Lymph % (Manual) 0 % Metamyelocytes % 2 H ( - 0) % Nucleated RBC % Not Reportable Neutrophils # (Manual) 12.3 H (1.5-6.6) 10^3/uL Lymphocytes # (Manual) 1.0 L (1.5-3.5) 10^3/uL Monocytes # (Manual) 0.3 (0.0-1.0) 10^3/uL Eosinophils # (Manual) 0.0 (0-0.7) 10^3/uL Basophils # (Manual) 0.0 (0-0.1) 10^3/uL Nucleated RBCs 1 % Differential Comment MANUAL DIFFERENTIAL WBC Morphology NORMAL APPEARANCE (NORMAL) Platelet Estimate INCREASED (>450,000) (NORMAL) Platelet Morphology NORMAL APPEARANCE (NORMAL) RBC Morph Micro Appear 3+ ANISOCYTOSIS (NORMAL) Sodium 143 (135-145) mmol/L Potassium 3.9 (3.5-4.5) mmol/L Chloride 104 (101-111) mmol/L Carbon Dioxide 33 H (21-32) mmol/L Anion Gap 6.0 (6-13) BUN 49 H (6-20) mg/dL Creatinine 1.0 (0.6-1.3) mg/dL Estimated GFR (MDRD) 53 L (>89) Glucose 97 (74-104) mg/dL Calcium 8.3 L (8.5-10.3) mg/dL Phosphorus 3.8 (2.5-5.0) mg/dL Magnesium 1.6 L (1.7-2.3) mg/dL Albumin 2.5 L (3.2-5.5) g/dL Sepsis Event Note (H) - Evaluation Current Stage of Sepsis: Ruled out Assessment/Plan - Problem List (5) Pubic ramus fracture Qualifiers: Encounter type: initial encounter Fracture type: closed Laterality: right Qualified Code(s): S32.591A - Other specified fracture of right pubis, initial encounter for closed fracture
[2024-02-21] MEDS: MAGNESIUM SULFATE 2 GRAM 2 GM/50 ML BAG IV ONE (10:51)
[2024-02-21] MEDS: POTASSIUM CHLORIDE 20 MEQ/15 ML UDC PO SCH (10:58)
[2024-02-21 14:16] VITALS: BP 146/63; O2SAT 93
== END 2024-02-21 13:55 | disposition short-term general hospital (02) | DRG 193 ==
LOC: ED 14:51 → MS2 19:54
PROVIDERS: ADMIT Internal Medicine; ATTEND Physician Assistant
DX: J18.9 Pneumonia, unspecified organism (principal); N39.0 Urinary tract infection, site not specified; J96.01 Acute respiratory failure with hypoxia; I47.29 Other ventricular tachycardia; J90 Pleural effusion, not elsewhere classified; C34.12 Malignant neoplasm of upper lobe, left bronchus or lung; I10 Essential (primary) hypertension; R05.3 Chronic cough; Z20.818 Contact with and (suspected) exposure to other bacterial communicable diseases; Z20.822 Contact with and (suspected) exposure to COVID-19; Z20.828 Contact with and (suspected) exposure to other viral communicable diseases; J44.1 Chronic obstructive pulmonary disease with (acute) exacerbation; C34.90 Malignant neoplasm of unspecified part of unspecified bronchus or lung; M84.454A Pathological fracture, pelvis, initial encounter for fracture; I48.19 Other persistent atrial fibrillation; E87.1 Hypo-osmolality and hyponatremia; B37.0 Candidal stomatitis; J44.0 Chronic obstructive pulmonary disease with (acute) lower respiratory infection; N17.9 Acute kidney failure, unspecified; D64.9 Anemia, unspecified; E87.6 Hypokalemia; E83.42 Hypomagnesemia; E83.39 Other disorders of phosphorus metabolism; F32.9 Major depressive disorder, single episode, unspecified; D75.838 Other thrombocytosis; M62.84 Sarcopenia; F41.9 Anxiety disorder, unspecified; I12.9 Hypertensive chronic kidney disease with stage 1 through stage 4 chronic kidney disease, or unspecified chronic kidney disease; N18.30 Chronic kidney disease, stage 3 unspecified; Z66 Do not resuscitate; Z79.01 Long term (current) use of anticoagulants; Z79.899 Other long term (current) drug therapy; Z92.3 Personal history of irradiation; Z95.0 Presence of cardiac pacemaker
CPT/HCPCS: 36415; 71045; 71046; 71260; 76604; 80053; 80069; 80076; 82607; 82746; 83540; 83615; 83735; 83880; 84145; 84443; 84466; 85025; 85045; 85610; 85730; 87040; 87070; 87205; 87633; 87640; 93005; 93307; 94640; 97162; 97166; 97530; 99285; A9270; J1750; J7040; J7626; Q9967; 82945; 83986; 84157

== ENCOUNTER 2024-02-21 13:57 | Outpatient (CLI) | payer MEDICARE | END 2024-02-21 23:59 | disposition short-term general hospital (02) | LOC: EMS 13:57 | PROVIDERS: ATTEND Physician Assistant | DX: I47.20 Ventricular tachycardia, unspecified (principal); I50.9 Heart failure, unspecified; I48.91 Unspecified atrial fibrillation | CPT/HCPCS: A0425; A0428 ==

== ENCOUNTER 2024-03-09 11:29 | Outpatient (CLI) | payer MEDICARE ==
[2024-03-09 12:07] LABS: CREATININE,URINE 80.6 mg/dL; MICROALBUM/CREATININE RATIO,UR 53.3 ug/mg (<30.0); MICROALBUMIN,URINE 4.3 mg/dL
== END 2024-03-09 11:30 | disposition home or self-care (01) ==
LOC: LAB.R 11:29
PROVIDERS: ATTEND Family Medicine
DX: R94.4 Abnormal results of kidney function studies (principal)
CPT/HCPCS: 82043; 82570